=== PATIENT | female | born 1945 | race Caucasian/White ===

== ENCOUNTER → 2019-10-27 11:00 | Outpatient (BNVA) | payer MEDICARE, SELFPAY | PROVIDERS: Family Provider Family Medicine; Visit Provider Nurse Practitioner Family | DX: Z11.59 Encounter for screening for other viral diseases (principal); Z71.89 Other specified counseling | CPT/HCPCS: 87635 ==

== ENCOUNTER 2019-10-29 10:16 | Observation (INO) | payer MEDICARE, SELFPAY ==
[2019-10-29] VITALS (8 sets, daily range): BP systolic 131–155; BP diastolic 79–96; PULSE 65–82; RESP 16–20; TEMP 36.1–36.9; O2SAT 93–97; BMI 23.6
--- NOTE | 2019-10-29 10:44 | XRR_ITS ---
PROCEDURE INFORMATION: Exam: XR Chest, 1 View Exam date and time: 10/29/2019 11:25 AM Age: 74 years old Clinical indication: Left-sided chest pain; Additional info: Cp, lt sided x 1 week TECHNIQUE: Imaging protocol: XR of the chest Views: 1 view. COMPARISON: No relevant prior studies available. FINDINGS: Lungs: Hypoinflation and mild basilar airspace disease. Pleural space: No significant pleural effusion. Heart/Mediastinum: No cardiomegaly. Vasculature: Ectasia of the thoracic aorta. Bones/joints: Osteopenia and mild scoliosis. XR/XR chest 1V portable [id number] IMPRESSION: Hypoinflation and mild basilar airspace disease.
--- NOTE | 2019-10-29 10:47 | ECG_ITS ---
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 Measurements Intervals [place] Rate: 66 P: 35 VA: 152 QRS: -2 QRSD: 85 T: 45 QT: 387 QTc: 408 Interpretive Statements SINUS RHYTHM No previous ECG available for comparison Electronically Signed On 10-29-2019 21:13:45 CDT by Tyler Mccarty M.D. [email or web address] ([employer])[facility] biloxivip.[facility].Haofangtong/store/NU/[id number] f
--- NOTE | 2019-10-29 10:50 | W.ED.CHESTPA ---
HPI - Chest Pain General: Chief Complaint: Chest Pain Stated Complaint: CP Time Seen by Provider: 10/29/19 10:17 History of Present Illness: HPI narrative: Patient has episodic chest pain that feels a heavy weight sitting on her chest for the past week. She has minimal associated symptoms. Pain has not resolved and therefore patient was sent to the emergency department for evaluation by her PCP. MD complaint: chest pain, chest heaviness and chest discomfort Onset (ago): week(s) (1) Timing of current episode: episodic Prior episodes: No Onset: during rest and during exertion Pain location: substernal, left chest and posterior Pain radiation: neck, jaw/teeth, left shoulder and left scapula Severity: severe Quality: heaviness Relieving factors: nothing Exacerbating factors: nothing Review of Systems General: Reports: 10 or more systems reviewed and unremarkable except in HPI and below PFSH ED PFSH: Social History Smoking and tobacco status: never smoked Physical Exam Const: COMMON NORMALS: no acute distress, healthy appearing and well nourished GENERAL APPEARANCE: cooperative and well developed HENMT: COMMON NORMALS: normocephalic and atraumatic HEAD & SCALP: normal to inspection, normocephalic and atraumatic Eye: GENERAL EYE: appearance normal, both eyes and all related structures Neck/C-Spine: COMMON NORMALS: full ROM, no lymphadenopathy and no meningeal signs GENERAL: Yes normal visual inspection CERVICAL SPINE: Yes cervical ROM normal and Yes normal cervical lordosis Chest: COMMONS NORMALS: normal inspection of the chest and normal palpation of entire chest wall Resp: COMMON NORMALS: normal respiratory effort, clear to auscultation bilaterally and percussion normal AUSCULTATION: clear to auscultation bilaterally PERCUSSION: percussion normal Cardio: COMMON NORMALS: regular rate, regular rhythm, S1 normal heart sound present and S2 normal heart sound present JUGULAR VENOUS DISTENTION: no JVD PALPATION: normal PMI RATE: regular rate RHYTHM: regular rhythm HEART SOUNDS: S1 normal heart sound present and S2 normal heart sound present GI: COMMON NORMALS: Soft to palpation and No hepatosplenomegaly present INSPECTION: Yes normal to inspection PALPATION: Yes Soft to palpation and Yes No hepatosplenomegaly present PERCUSSION: normal to percussion : COMMON NORMALS: Yes no CVA tenderness BLADDER/KIDNEY EXAM: Yes no CVA tenderness Back/Pelvis: COMMON NORMALS: no CVA tenderness, thoracic and lumbar spine normal to inspection and thoraco-lumbar ROM normal Extremity: COMMON NORMALS: normal to inspection, full ROM and capillary refill normal Neuro: MENINGEAL SIGNS: Yes no meningeal signs Skin: COMMON NORMALS: no rashes or lesions noted, no wounds and turgor normal GENERAL SKIN EXAM: no rashes or lesions noted, elasticity normal and turgor normal LESIONS: no lesions RASHES: no rashes TRAUMA: no lacerations or abrasions HAIR: normal NAILS: normal Course Vital Signs: Vital signs: Vital Signs Temperature 96.9 F L 10/29/19 10:17 Pulse Rate 65 10/29/19 10:17 Respiratory Rate 16 10/29/19 10:17 Blood Pressure 155/96 10/29/19 10:17 Pulse Oximetry 97 10/29/19 10:17 MDM - Chest Pain Lab Data: Labs: Lab Results 10/29/19 10/29/19 10/29/19 Range/Units 10:56 10:56 10:56 WBC 4.0 (4.0-10.0) 10^3/ uL RBC 4.34 (4.1-5.3) 10^6/u L Hgb 12.9 (11.5-15.3) g/dL Hct 40.3 (37.0-47.0) % MCV 92.9 (81-99) fL MCH 29.7 (28.0-34.0) pg MCHC 32.0 (30.0-36.0) g/dL RDW 12.0 L (12.1-15.1) % Plt Count 215 (130-400) 10^3/c mm MPV 10.3 (7.4-10.4) fL Neut % (Auto) 50.6 % Lymph % (Auto) 32.6 % [place] % (Auto) 11.5 % Eos % (Auto) 4.0 % Baso % (Auto) 1.0 % Neut # (Auto) 2.0 (1.8-7.7) 10^3/u L Lymph # (Auto) 1.3 (0.8-4.8) 10^3/u L [place] # (Auto) 0.5 (0.2-0.9) 10^3/u L Eos # (Auto) 0.2 (0.0-0.8) 10^3/u L Baso # (Auto) 0.0 (0.0-0.1) 10^3/u L Nucleated RBC % (a uto) 0 % Nucleated RBCs # 0.0 /100WBC PT 12.30 (10.5-13.3) SECO NDS INR 0.89 (0.8-1.2) Sodium 139 (136-145) mmol/L Potassium 4.2 (3.5-5.1) mmol/L Chloride 101 (98-107) mmol/L Carbon Dioxide 25 (22-29) mmol/L Anion Gap 17.2 (5-19) BUN 14 (8-23) mg/dL Creatinine 0.7 (0.5-0.9) mg/dL Glucose 97 (65-115) mg/dL Calculated Osmolal ity 284 L (285-295) mOsm/k g Calcium 9.7 (8.5-10.5) mg/dL Total Bilirubin 0.3 (0.15-1.2) mg/dL AST 18 (0-32) U/L ALT 14 (0-33) U/L Alkaline Phosphata se 79 (35-105) IU/L Troponin T Baselin e (0-10) ng/L NT-Pro-B Natriuret Pep 38 (0-125) pg/mL Total Protein 6.8 (6.6-8.7) g/dL Albumin 4.4 (3.5-5.2) g/dL Globulin 2.4 (1.3-4.6) g/dL /25/20 Range/Units 10:56 WBC (4.0-10.0) 10^3/ uL RBC (4.1-5.3) 10^6/u L Hgb (11.5-15.3) g/dL Hct (37.0-47.0) % MCV (81-99) fL MCH (28.0-34.0) pg MCHC (30.0-36.0) g/dL RDW (12.1-15.1) % Plt Count (130-400) 10^3/c mm MPV (7.4-10.4) fL Neut % (Auto) % Lymph % (Auto) % [place] % (Auto) % Eos % (Auto) % Baso % (Auto) % Neut # (Auto) (1.8-7.7) 10^3/u L Lymph # (Auto) (0.8-4.8) 10^3/u L [place] # (Auto) (0.2-0.9) 10^3/u L Eos # (Auto) (0.0-0.8) 10^3/u L Baso # (Auto) (0.0-0.1) 10^3/u L Nucleated RBC % (a uto) % Nucleated RBCs # /100WBC PT (10.5-13.3) SECO NDS INR (0.8-1.2) Sodium (136-145) mmol/L Potassium (3.5-5.1) mmol/L Chloride (98-107) mmol/L Carbon Dioxide (22-29) mmol/L Anion Gap (5-19) BUN (8-23) mg/dL Creatinine (0.5-0.9) mg/dL Glucose (65-115) mg/dL Calculated Osmolal ity (285-295) mOsm/k g Calcium (8.5-10.5) mg/dL Total Bilirubin (0.15-1.2) mg/dL AST (0-32) U/L ALT (0-33) U/L Alkaline Phosphata se (35-105) IU/L Troponin T Baselin e 6 (0-10) ng/L NT-Pro-B Natriuret Pep (0-125) pg/mL Total Protein (6.6-8.7) g/dL Albumin (3.5-5.2) g/dL Globulin (1.3-4.6) g/dL Discharge Plan Discharge Patient Disposition: Admitted As Inpatient Clinical Impression: Chest pain Qualifiers: Chest pain type: unspecified Qualified Code(s): R07.9 - Chest pain, unspecified Condition: Stable Referrals: Ann Marie Cameron MD [Family Provider] - Coding Level of Care Code ED Ell Teacher for [facility] Fwd Exam Comprehensive
[2019-10-29 11:07] LABS: Eosinophils # 0.2 10^3/uL (0.0-0.8); Hematocrit 40.3 % (37.0-47.0); Hemoglobin 12.9 g/dL (11.5-15.3); Lymphocytes # 1.3 10^3/uL (0.8-4.8); Lymphocytes % 32.6 %; Mean Corpuscular Hemoglobin 29.7 pg (28.0-34.0); Mean Corpuscular Volume 92.9 fL (81-99); Mean Platelet Volume 10.3 fL (7.4-10.4); Monocytes # 0.5 10^3/uL (0.2-0.9); Monocytes % 11.5 %; Neutrophils % 50.6 %; Nucleated Red Blood Cells % 0 %; Platelet Count 215 10^3/cmm (130-400); Red Blood Count 4.34 10^6/uL (4.1-5.3)
[2019-10-29 11:24] LABS: INR 0.89 (0.8-1.2)
[2019-10-29 11:31] LABS: Troponin(5th) Baseline 6 ng/L (0-10)
[2019-10-29 11:50] LABS: Alanine Aminotransferase 14 U/L (0-33); Albumin Level 4.4 g/dL (3.5-5.2); Alkaline Phosphatase 79 IU/L (35-105); Anion Gap 17.2 (5-19); Aspartate Amino Transferase 18 U/L (0-32); Blood Urea Nitrogen 14 mg/dL (8-23); Calcium 9.7 mg/dL (8.5-10.5); Carbon Dioxide 25 mmol/L (22-29); Chloride 101 mmol/L (98-107); Globulin 2.4 g/dL (1.3-4.6); Glucose 97 mg/dL (65-115); NT Pro B Type Natriuretic Pept 38 pg/mL (0-125); Osmolality Calculated 284 mOsm/kg (285-295); Potassium 4.2 mmol/L (3.5-5.1); Sodium 139 mmol/L (136-145); Total Bilirubin 0.3 mg/dL (0.15-1.2); Total Protein 6.8 g/dL (6.6-8.7)
--- NOTE | 2019-10-29 12:47 | ECG_ITS ---
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 Measurements Intervals [place] Rate: 62 P: 34 VT: 156 QRS: 0 QRSD: 79 T: 49 QT: 400 QTc: 408 Interpretive Statements SINUS RHYTHM Compared to ECG 10/29/2019 10:33:24 No significant changes Electronically Signed On 10-29-2019 21:14:41 CDT by Tyler Mccarty M.D. [email or web address] [email or web address] [email or web address] natchezOurStagepremier health upper valley [facility] center.A[employer]ov[employer]/store/OM/[id number]
--- NOTE | 2019-10-29 12:50 | PM.HP ---
Providers/Chief Complaint Chief Complaint: CP History of Present Illness Cassy Rockwell is a 74 year old female that presented to the emergency department with complaints of chest discomfort. Patient reports this is varied quite a bit. She reports that 7 days ago, after helping somebody move she developed left back pain acutely, left shoulder and neck pain. She states this lasted only a short time and went away but since that time she has been having intermittent left shoulder discomfort, fatigue. She has been having some chest discomfort, and feeling as if her left breast is heavy. This is not always exertional. This is sometimes positional. It seems to wrap around i sometimes. No diaphoresis. No shortness of breath. No hemoptysis. She denies any fevers. She had a COVID test recently, without history of exposure, that was negative. She is very concerned about her intermittent chest discomfort and severe fatigue. She reports she has had a stress test before in 2016 which was negative. She has no history of heart disease. Her primary care provider recently saw her and she had normal labs, no evidence of urine infection on culture, and a negative troponin at that time. Review of Systems General: Reports: 10 or more systems reviewed and unremarkable except in HPI and below Const: Denies: fever(s) Eyes: Denies: change in vision ENMT: Denies: throat pain Card: Reports: chest pain Resp: Denies: dyspnea GI: Denies: abdominal pain : Denies: flank pain Musc: Reports: neck pain and extremity pain Skin/Breast: Denies: rash Neuro: Denies: numbness in extremities Psych: Denies: anxiety or depression Endo: Denies: polyuria [place]/Lymph: Denies: easy bruising All/Imm: Denies: urticaria Medications/Allergies Home Medications Medication Instructions Recorded Confirmed Last Taken Type levothyroxine 112 mcg PO DAILY 10/29/19 10/29/19 10/29/19 History meloxicam 15 mg PO DAILY 10/29/19 10/29/19 10/29/19 History paroxetine HCl 10 mg PO DAILY 10/29/19 10/29/19 10/29/19 History Allergies Allergy/AdvReac Type Severity Reaction Status Date / Time Sulfa (Sulfonamide Allergy ALGY-Hives Verified 10/29/19 10:26 Antibiotics) PFSH Acute PFSH: Medical History (Updated 06/25/20 @ 13:17 by Nael Cameron MD) Depression DJD (degenerative joint disease) Hypothyroidism Surgical History (Updated 10/29/19 @ 13:09 by Nael Cameron MD) History of cataract surgery Family History (Updated 10/29/19 @ 13:09 by Nael Cameron MD) Other CAD (coronary artery disease) Social History (Updated 10/29/19 @ 13:09 by Nael Cameron MD) Smoking and tobacco status: never smoked Alcohol intake: current Alcohol intake frequency: 0-2 Drinks per Day Substance/Drug Use: never Vitals/I&O/Wt Last Vital Signs Temp 96.9 F L 10/29/19 10:17 Pulse 65 10/29/19 10:17 Resp 16 10/29/19 10:17 BP 155/96 10/29/19 10:17 Pulse Ox 97 10/29/19 10:17 Weight last 48 hrs Weight 68.583 kg Physical Exam Narrative: EXAM NARRATIVE: General exam is a white female in no apparent distress HEENT: Pupils equally round reactive light. Oropharynx is clear. Neck is supple no lymphadenopathy or thyromegaly. I cannot reproduce her symptoms with neck movement. Cardiovascular regular rate and rhythm without murmur, no S3 or S4. Chest does not demonstrate clear reproducibility with palpation Lungs clear no wheezing or crackles Abdomen is soft with positive bowel sounds. No obvious organomegaly was deferred Extremities no show cyanosis clubbing or edema. Pulses intact skin no obvious dermatomal decreased sensation, no rash Neuro no obvious focal deficits Data : 10/29/19 10:56 10/29/19 10:56 Other data: Troponin was 6. Recent COVID test was negative. Liver function tests normal. TSH is ordered and pending. Chest x-ray reviewed by me negative without infiltrate. EKG demonstrated normal sinus rhythm, normal axis, no ischemic changes A&P Assessment and plan (1) Chest pain: Her chest discomfort is atypical. She does have a family history of heart disease but no history of tobacco, hyperlipidemia, hypertension(even though ER blood pressure is elevated). We will arrange for nuclear stress test, echocardiogram. I am concerned with her history that she may have some nerve compression in her cervical or thoracic spine. CT noncontrast ordered. I am not worried about abscess/infection. Status: Acute Qualifiers: Chest pain type: unspecified Qualified Code(s): R07.9 - Chest pain, unspecified (2) Fatigue: Routine lab normal. Check TSH, sedimentation rate and CRP. Status: Acute Additional A&P Information Hypothyroidism, continue home medication and await TSH DJD Full code Lovenox for DVT prophylaxis Attestations Medical Necessity Statement*: Will need less than 2 midnight stay for evaluation of chest discomfort. Time Spent in Patient Care: Greater than 35 minutes Coding Level of Care Code Acute Veneer Marker for Chg Fwd Diagnoses Chest pain R07.9 Chest pain type: unspecified Fatigue R53.83
--- NOTE | 2019-10-29 13:02 | USCV_ITS ---
Cassy Rockwell Age: 74 Gender: F : 1945 Exam Date: 10/29/2019 14:30 Ordering Phys: Nael Cameron MD Technologist: Edith Ledesma [place] [facility] [place]: DYSPNEA BP: 131 / 79 HR: 82 Rhythm: Sinus Technical Quality: Adequate MEASUREMENTS (Male / Female) Normal Values 2D ECHO LV Diastolic Diameter PLAX 4.0 cm 4.2 - 5.9 / 3.9 - 5.3 cm LV Systolic Diameter PLAX 3.1 cm LV Chamber Size 4.1 cm IVS Diastolic Thickness 1.2 cm 0.6 - 1.0 / 0.6 - 0.9 cm IVS Systolic Thickness 1.7 cm LVPW Diastolic Thickness 1.6 cm 0.6 - 1.0 / 0.6 - 0.9 cm LVPW Systolic Thickness 1.8 cm RV Chamber Size 3.1 cm LVOT Diameter 2.0 cm LV Ejection Fraction 2D Teich 44.2 % LV Ejection Fraction MOD 2C 52.0 % LV Ejection Fraction 2C AL 49.9 % LA Diameter 3.7 cm LA Width 3.4 cm LA Height 3.8 cm RA Width 3.3 cm RA Height 3.9 cm Aorta at Sinotubular Diameter 2.6 cm M-MODE LV Diastolic Diameter MM 4.9 cm 4.2 - 5.9 / 3.9 - 5.3 cm LV Systolic Diameter MM 3.5 cm LV Ejection Fraction MM Teich 54.6 % IVS Diastolic Thickness MM 0.8 cm 0.6 - 1.0 / 0.6 - 0.9 cm IVS Systolic Thickness MM 1.0 cm LVPW Diastolic Thickness MM 1.0 cm 0.6 - 1.0 / 0.6 - 0.9 cm LVPW Systolic Thickness MM 1.0 cm Aortic Annulus Diameter 3.1 cm LA Ao Ratio MM 1.2 MV E Point Septal Separation 0.7 cm DOPPLER AV Peak Velocity 118.0 cm/s LVOT Peak Velocity 90.0 cm/s AV Area Cont Eq vti 2.3 cm squared AV Area Cont Eq pk 2.3 cm squared MV Area PHT 4.6 cm squared Mitral E to A Ratio 0.9 MV E' Velocity 10.0 cm/s Mitral E to MV E' Ratio 6.2 Mitral E to LV E' Lateral Ratio 6.2 Mitral E to LV E' Septal Ratio 6.1 TR Peak Velocity 288.0 cm/s TR Peak Gradient 33.3 mmHg TV Peak E Velocity 84.0 cm/s Right Atrial Pressure 3.0 mmHg Pulmonary Artery Systolic Pressu 36.2 mmHg PV Peak Velocity 75.0 cm/s RV Acceleration Time 0.1 s RV Ejection Time 0.4 s RV AcT/ET 0.3 FINDINGS Left Ventricle Normal left ventricular cavity size. Normal left ventricular systolic function. No regional wall motion abnormalities. Left ventricular ejection fraction is estimated at 54 %. Grade I/IV diastolic dysfunction (abnormal relaxation filling pattern), normal to mildly elevated filling pressures. Right Ventricle The right ventricle is normal in size and function. Right Atrium The right atrium is normal in size. Left Atrium The left atrium is normal in size. Mitral Valve Mildly thickened mitral valve. No mitral valve stenosis. Mild mitral valve regurgitation. Aortic Valve Structurally normal aortic valve without significant sclerosis or stenosis. There is no aortic regurgitation. Tricuspid Valve Structurally normal tricuspid valve without significant stenosis or regurgitation. Pulmonary artery systolic pressure is normal. Pulmonic Valve Mild pulmonary valve regurgitation. Pericardium Normal pericardium without effusion. Aorta Normal ascending aorta dimension. CONCLUSIONS 1-Normal left ventricular cavity size. Normal left ventricular systolic function. No regional wall motion abnormalities. Left ventricular ejection fraction is estimated at 54 %. Grade I/IV diastolic dysfunction (abnormal relaxation filling pattern), normal to mildly elevated filling pressures. 2-Mildly thickened mitral valve. No mitral valve stenosis. Mild mitral valve regurgitation. 3-Structurally normal aortic valve without significant sclerosis or stenosis. There is no aortic regurgitation. 4-Structurally normal tricuspid valve without significant stenosis or regurgitation. Pulmonary artery systolic pressure is normal. 5-There is no pericardial effusion. 6-Right atrial pressure is around 5 mm of mercury. 7-There are no prior echocardiogram studies to compare. Tyler Mccarty MD (Electronically Signed) Final Date: 29 October 2019 21:12 S
--- NOTE | 2019-10-29 13:02 | CTR_ITS ---
PROCEDURE INFORMATION: Exam: CT Cervical Spine Without Contrast Exam date and time: 10/29/2019 1:23 PM Age: 74 years old Clinical indication: Patient HX: Came to er for chest pains; Additional info: Pain TECHNIQUE: Imaging protocol: Computed tomography images of the cervical spine without contrast. Radiation optimization: All CT scans at this facility use at least one of these dose optimization techniques: automated exposure control; mA and/or kV adjustment per patient size (includes targeted exams where dose is matched to clinical indication); or iterative reconstruction. COMPARISON: No relevant prior studies available. RADIATION DOSE METRICS: Total DLP (mGy-cm): 416.66 FINDINGS: Vertebrae: Diminished cervical lordosis. No acute bony injury or malalignment in the cervical spine. 1.7 cm intraosseous hemangioma in the C7 vertebral body. Poorly characterized 9 mm nodular lytic lesion in the T1 vertebral body. Discs/Spinal canal/Neural foramina: Multilevel degenerative change, of greatest severity at the C5-C6 and C6-C7 levels. Soft tissues: Unremarkable. Lungs: Interstitial prominence. CT/CT cervical spin wo con* [id number] IMPRESSION: 1. Multilevel degenerative change and diminished cervical lordosis. 2. Additional findings as described above. Radiation Dose CTDIVOL = (mGy): DLP = 416.66 (mGy-cm)
--- NOTE | 2019-10-29 13:02 | CTR_ITS ---
PROCEDURE INFORMATION: Exam: CT Thoracic Spine Without Contrast Exam date and time: 10/29/2019 1:23 PM Age: 74 years old Clinical indication: Patient HX: Came in for chest pains; Additional info: Pain TECHNIQUE: Imaging protocol: Computed tomography images of the thoracic spine without contrast. Radiation optimization: All CT scans at this facility use at least one of these dose optimization techniques: automated exposure control; mA and/or kV adjustment per patient size (includes targeted exams where dose is matched to clinical indication); or iterative reconstruction. COMPARISON: No relevant prior studies available. RADIATION DOSE METRICS: Total DLP (mGy-cm): 1382.56 FINDINGS: Vertebrae: Nonspecific 9 mm nodular lytic lesion in the T1 vertebral body. 11 mm intraosseous hemangioma in the T11 vertebral body. No acute bony injury or malalignment in the thoracic spine. Mild scoliosis. Discs/Spinal canal/Neural foramina: No acute findings. Soft tissues: Unremarkable appearance of the paraspinous soft tissues. Liver: 2.4 cm cyst in the medial hepatic dome. Gallbladder and bile ducts: Questionable cholelithiasis. Kidneys and ureters: Status post incompletely visualized 3.1 cm left renal cyst with peripheral calcification. Lungs: Bilateral interstitial/airspace disease. CT/CT thoracic spin wo con* [id number] IMPRESSION: 1. No acute bony injury or malalignment in the thoracic spine. 2. Additional findings as described above. Radiation Dose CTDIVOL = (mGy): DLP = 1382.56 (mGy-cm)
[2019-10-29 13:39] LABS: Troponin 5 2HR 7.34 ng/L (0-10); Troponin 5 2HR Delta 1.34 ABS# (0-10)
[2019-10-29 14:04] LABS: Thyroid Stimulating Hormone 1.04 uIU/mL (0.27-4.20)
[2019-10-29] MEDS: enoxaparin 40 mg/0.4 mL Syringe SUBCUT (15:15)
--- NOTE | 2019-10-29 16:47 | ECG_ITS ---
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 Measurements Intervals [place] Rate: 71 P: 57 AK: 145 QRS: -3 QRSD: 88 T: 65 QT: 403 QTc: 439 Interpretive Statements SINUS RHYTHM Compared to ECG 10/29/2019 12:59:23 No significant changes Electronically Signed On 10-29-2019 21:14:49 CDT by Tyler Mccarty M.D. https://[email or web address].[facility]-Cmemorial hospital at stone countyBillogrammercy health – the jewish hospitalDream home renovations/store/OM/[id number]/[id number]
[2019-10-29 17:27] LABS: Troponin 5 6HR Delta 0 ng/L (0-12)
[2019-10-29 17:59] LABS: C Reactive Protein 0.6 mg/L (0.0-4.9)
[2019-10-29 18:13] LABS: Erythrocyte Sedimentation Rate 9 mm/hr (0-15)
--- NOTE | 2019-10-29 19:30 | PC.NURSE ---
Pt resting in bed. Denies any pain unless she is moving. Eating icecream. No further needs at this time.
--- NOTE | 2019-10-29 20:33 | PC.NURSE ---
Offered patient a bath. Patient stated was going home in the morning. And was o.k.
[2019-10-30] VITALS (44 sets, daily range): BP systolic 113–146; BP diastolic 67–91; PULSE 58–94; RESP 18–22; TEMP 36.6; O2SAT 92–97
[2019-10-30 04:59] LABS: Basophils % 0.5 %; Eosinophils # 0.1 10^3/uL (0.0-0.8); Eosinophils % 3.6 %; Hematocrit 41.4 % (37.0-47.0); Hemoglobin 12.9 g/dL (11.5-15.3); Lymphocytes # 1.6 10^3/uL (0.8-4.8); Lymphocytes % 41.7 %; Mean Corpuscular HGB Conc 31.2 g/dL (30.0-36.0); Mean Corpuscular Hemoglobin 29.7 pg (28.0-34.0); Mean Corpuscular Volume 95.4 fL (81-99); Mean Platelet Volume 10.3 fL (7.4-10.4); Monocytes # 0.4 10^3/uL (0.2-0.9); Monocytes % 11.1 %; Neutrophils # 1.7 10^3/uL (1.8-7.7); Neutrophils % 42.8 %; Nucleated Red Blood Cells % 0 %; Platelet Count 203 10^3/cmm (130-400); Red Blood Count 4.34 10^6/uL (4.1-5.3); Red Cell Distribution Width 12.1 % (12.1-15.1); White Blood Count 3.9 10^3/uL (4.0-10.0)
[2019-10-30 05:42] LABS: Blood Urea Nitrogen 14 mg/dL (8-23); Calcium 9.5 mg/dL (8.5-10.5); Carbon Dioxide 25 mmol/L (22-29); Chloride 102 mmol/L (98-107); Glucose 101 mg/dL (65-115); Osmolality Calculated 282 mOsm/kg (285-295); Sodium 138 mmol/L (136-145)
--- NOTE | 2019-10-30 05:56 | PC.NURSE ---
No complaints of chest pain throughout this shift. Stress test ordered for today.
--- NOTE | 2019-10-30 06:00 | ECG_ITS ---
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 Interpretive Statements NAME OF STUDY: LEXISCAN SESTAMIBI STRESS TEST INDICATION: Chest Pain LEXISCAN STRESS TEST ORDERING PHYSICIAN: Unknown CLINICAL INFORMATION: Chest pain INTERPRETATION: 1. The patient was brought to the laboratory where Lexiscan was infused over 20 seconds. The resting blood pressure was 134/79. Maximum blood pressure was 139/81. The resting heart rate was 62 beats per minute. The maximum heart rate is 89 beats per minute. 2. The baseline electrocardiogram reveals sinus rhythm with significant baseline artifact and nonspecific ST wave changes 3. With Lexiscan infusion, there were no ST segment changes to suggest ischemia. 4. The patient experienced no symptoms or arrhythmias during the examination. CONCLUSION: 1. Unremarkable Lexiscan infusion. 2. Nuclear imaging to follow. Electronically Signed On 10-30-2019 14:54:50 CDT by Adam Hernandez M.D. [email or web address]Skicka Tårtaselect medical specialty hospital [facility].PATHSENSORS/store/OM/[id number]/[id number]
--- NOTE | 2019-10-30 07:25 | PC.NURSE ---
Patient transported to nuclear medicine in a wheelchair.
--- NOTE | 2019-10-30 08:11 | SUR.PREOP ---
Patient reports no pain or discomfort prior to the start of the procedure.
[2019-10-30] MEDS: regadenoson 0.4 Mg/5 ml Syringe IVP (08:12)
[2019-10-30] MEDS: PARoxetine 20 mg Tablet 10 MG PO (09:36)
[2019-10-30] MEDS: levothyroxine 112 mcg Tablet PO (09:36)
[2019-10-30] MEDS: meloxicam 7.5 mg tablet 15 MG PO (09:36)
--- NOTE | 2019-10-30 11:05 | PC.CHAP ---
Pastoral Care Encounter/Spiritual Assessment Type of Contact [] Declined television technician visit [] Patient/Family/Request visit [] Outpatient visit [] Follow-up visit [] Physician referral [] Code/Alert [x] Routine visit [] Staff referral [] Actively dying [] Patient sleeping [] Family support [] [] Out of room [] Palliative care [] [] Receiving care in room [] Pre-surgical visit [] Trauma [] Long length of stay [] ICU visit [] Other: Relational/Emotional Strength [] Patient feels connected with others/family/visitors/staff [] Distress [] Loneliness/isolation [] Abandonment Spirituality of Patient [] Person of Mady [] Attends Restoration of their Mady [] Believes in Prayer [] Reads Bible or Denominational materials [] There are Spiritual issues to be addressed Ballistic Technician Interventions [x] Prayer [x] Active listening [x] Non-anxious presence [x] Spiritual/emotional support [] Crisis/trauma care [] Spiritual counseling [] Bereavement support [] Provided bereavement packet [] Provided Bible/devotional materials [] Provided toy/stuffed animal, coloring book to patient or family member [] Provided Communion [] Anointing/[place] [] Salvation [x] Completed spiritual assessment [] Other: Impact on Illness or Injury [] Angry [] Fearful [] Anxious [] Often cries [] Exhaustion [] Unable to work [] Unable to attend mormon [] Unable to walk/stand [] Unable to read [] Unable to drive [] Unable to eat/drink [] Unable to sleep [] Unable to be with family [] Patient intubated [] Other: Summary patient feeling stronger Time spent with patient 10 min
--- NOTE | 2019-10-30 12:38 | P.DS_ITS ---
Discharge Providers Date of Admission: 10/29/19 12:44 Date of Discharge: October 30, 2019 Attending Provider at Admission: Nael Cameron MD Attending Provider at Discharge: Nael Cameron MD Primary Care Provider: Ann Marie Cameron MD Diagnoses at Discharge Discharge Diagnosis (1) Chest pain: Status: Acute Problem details: Atypical. Appears musculoskeletal. Nuclear stress test, echocardiogram negative. Troponins negative. Qualifiers: Chest pain type: unspecified Qualified Code(s): R07.9 - Chest pain, unspecified (2) Fatigue: Status: Acute Reason for Visit Reason for Visit: CP Hospital Course Hospital Course: Cassy is a 74-year-old white female who is been to the hospital with chest discomfort. This was atypical in nature and suggested musculoskeletal. Troponins were all negative. An EKG demonstrated no ischemia. Telemetry overnight was not concerning. Echocardiogram was normal. Nuclear stress test normal. She still had some discomfort, with position changes on discharge. She was instructed to take Tylenol as needed and follow-up with her primary care provider. TSH was also checked secondary to fatigue, and was normal. Sedimentation CRP was also normal. Physical Exam Narrative: EXAM NARRATIVE: General exam no apparent distress Cardiovascular regular in rhythm without murmur Lungs clear Abdomen is soft, positive bowel sounds Extremities no cyanosis clubbing or edema Discharge Data Data Completed and Pending: Completed Studies During Hospitalization Category Date Time Status CT cervical spin wo con* [id number] Urge nt Cat Scan 10/29/19 13:[address] thoracic spin wo con* [id number] Urge nt Cat Scan 10/29/19 13:02 Completed Sestamibi Stress Test Request Routi ne Exams 10/30/19 06:00 Draft XR chest 1V gonzalez ble [id number] Stat Exams 10/29/19 10:44 Completed NM sonali perf SPECT r/s* [id number] Routin e Nuc Med 10/30/19 13:02 Completed CV echo complete* [id number] Routine Ultrasound 10/29/19 13:02 Completed Pending at discharge Category Date Time Status Sestamibi Stress Test Request Routi ne Exams 10/29/19 13:02 Stop Req Labs from last 24 hours 10/30/19 10/30/19 10/29/19 04:50 04:50 16:57 WBC 3.9 L RBC 4.34 Hgb 12.9 Hct 41.4 MCV 95.4 MCH 29.7 MCHC 31.2 RDW 12.1 Plt Count 203 MPV 10.3 Neut % (Auto) 42.8 Lymph % (Auto) 41.7 [place] % (Auto) 11.1 Eos % (Auto) 3.6 Baso % (Auto) 0.5 Neut # (Auto) 1.7 L Lymph # (Auto) 1.6 [place] # (Auto) 0.4 Eos # (Auto) 0.1 Baso # (Auto) 0.0 Nucleated RBC % (a uto) 0 Nucleated RBCs # 0.0 ESR Sodium 138 Potassium 4.0 Chloride 102 Carbon Dioxide 25 Anion Gap 15.0 BUN 14 Creatinine 0.8 Glucose 101 Calculated Osmolal ity 282 L Calcium 9.5 Troponin I 6 Hour Troponin I Hi Sens Del Troponin T 120 Min [place] Delta Troponin T C-Reactive Protein 0.6 TSH 10/29/19 10/29/19 10/29/19 16:57 16:57 13:06 WBC RBC Hgb Hct MCV MCH MCHC RDW Plt Count MPV Neut % (Auto) Lymph % (Auto) [place] % (Auto) Eos % (Auto) Baso % (Auto) Neut # (Auto) Lymph # (Auto) [place] # (Auto) Eos # (Auto) Baso # (Auto) Nucleated RBC % (a uto) Nucleated RBCs # ESR 9 Sodium Potassium Chloride Carbon Dioxide Anion Gap BUN Creatinine Glucose Calculated Osmolal ity Calcium Troponin I 6 Hour 6.00 Troponin I Hi Sens Del 0 Troponin T 120 Min [place] 7.34 Delta Troponin T 1.34 C-Reactive Protein TSH 10/29/19 10:56 WBC RBC Hgb Hct MCV MCH MCHC RDW Plt Count MPV Neut % (Auto) Lymph % (Auto) [place] % (Auto) Eos % (Auto) Baso % (Auto) Neut # (Auto) Lymph # (Auto) [place] # (Auto) Eos # (Auto) Baso # (Auto) Nucleated RBC % (a uto) Nucleated RBCs # ESR Sodium Potassium Chloride Carbon Dioxide Anion Gap BUN Creatinine Glucose Calculated Osmolal ity Calcium Troponin I 6 Hour Troponin I Hi Sens Del Troponin T 120 Min [place] Delta Troponin T C-Reactive Protein TSH 1.04 Vitals: Last Vital Signs Temp 97.9 F 10/30/19 04:00 Pulse 72 10/30/19 10:32 Resp 22 H 10/30/19 04:00 BP 130/72 10/30/19 08:20 Pulse Ox 96 10/30/19 10:32 Discharge Plan Discharge Patient Disposition: Home, Self-Care Condition: Stable Prescriptions: Continued paroxetine HCl 10 mg Tablet 10 mg PO DAILY RF: 0 meloxicam 15 mg Tablet 15 mg PO DAILY RF: 0 levothyroxine 112 mcg Tablet 112 mcg PO DAILY RF: 0 Referrals: Ann Marie Cameron MD [Primary Care Provider] - 1 week Discharge Diet: Regular Discharge Activity: Increase activity as tolerated Activity Restrictions/Additional Instructions: Arrange for follow-up with your primary care provider in approximately 1 week. Use Tylenol as needed. Discharge Attestations Time Spent in Discharge Care*: greater than 30 min Quality Metrics Clinical Quality Measures During this hospital stay, did patient experience: None Coding Level of Care Code Acute Endocrinology Nurse for Janett Barnes Diagnoses Chest pain R07.9 Chest pain type: unspecified Fatigue R53.83
--- NOTE | 2019-10-30 13:02 | NMCV_ITS ---
NM sonali perf SPECT r/s* [id number] Cassy Rockwell Age: 74 Gender: F : 1945 Exam Date: 10/30/2019 07:15 Ordering Phys: Nael Cameron MD Technologist: SARAH Smart Exam Location: [facility] Indications: Chest pain STRESS TEST [facility] for [facility] IMAGE PROTOCOL Rest/Stress 1 Lexiscan Day Radiopharmaceutical Dose (mCi) Administration Site Administered by Rest: Tc-99m 11.0 IV SARAH Dasilva Sestamibi Stress:Tc-99m 32.5 IV SARAH Smart Sestamiplacido Rest: 30-Oct-2019 60 Discovery 630 Stress: 30-Oct-2019 45 Discovery 630 0.4mg Lexiscan. Images obtained in supine and prone position. SPECT RESULTS Technical Quality: Good Raw Data Analysis: Normal Image Corrections: No attenuation or motion correction applied Summed Stress Score: 0 Summed Rest Score: 0 Summed Difference Score: 0 PERFUSION FINDINGS SPECT images demonstrate homogeneous tracer distribution throughout the myocardium. FUNCTIONAL RESULTS (calculated via Gated SPECT) Stress Image LV EF (%): 59 Stress EDV (mL):71 TID: 0.95 Stress ESV (mL):29 FUNCTIONAL FINDINGS: The left ventricle is normal in size. Transient Ischemia Dilatation of 0.95. There is normal left ventricular systolic function. The left ventricular ejection fraction is normal with a value of 59%. There is normal left ventricular wall thickening. Normal end-diastolic and end-systolic volumes. IMPRESSIONS 1. Myocardial perfusion imaging is normal. 2. Overall left ventricular systolic function is normal without regional wall motion abnormalities. 3. The left ventricular ejection fraction is normal with a value of 59%. 4. This study suggests a low likelihood of angiographically significant coronary artery disease. Mckenzie Johnson MD (Electronically Signed) Final Date: 30 October 2019 12:31 S
== END 2019-10-30 13:39 | disposition home or self-care (01) ==
LOC: ER 12:52 → CSU 13:21
PROVIDERS: Family Medicine; Admitting Provider Internal Medicine; Emergency Provider Family Medicine; PCP Family Medicine; Visit Provider Internal Medicine
DX: R07.89 Other chest pain (principal); R53.83 Other fatigue; E03.9 Hypothyroidism, unspecified; M19.90 Unspecified osteoarthritis, unspecified site; F32.9 Major depressive disorder, single episode, unspecified; Z82.49 Family history of ischemic heart disease and other diseases of the circulatory system
CPT/HCPCS: 12345; 36415; 71045; 72125; 72128; 78452; 80048; 80053; 83880; 84443; 84484; 85025; 85610; 85651; 86140; 93005; 93017; 93306; 96372; 99282; 99285; A9500; G0378; J1650; J2785

== ENCOUNTER 2019-11-16 09:23 | Outpatient (CLI) | payer MEDICARE, SELFPAY ==
--- NOTE | 2019-11-16 09:31 | MR_ITS ---
WS: [id number] MRI THORACIC SPINE WITH CONTRAST TECHNIQUE: Sagittal T1, T2 and STIR imaging. Axial T2 imaging. Post gadolinium imaging was obtained. CLINICAL INFORMATION: DISORDER OF BONE UNSPEC;LYTIC LESION OF BONE ON XRAY COMPARISON: CT thoracic October 29, 2019 FINDINGS: T1 vertebral body lesion previously described on the CT represents incidental hemangioma. Incidental hemangioma T11 vertebral body. Partially visualized lesion in the L2 vertebral body eccentric to the left with enhancement. This may represent an atypical hemangioma and only partially evaluated and indeterminant. Recommend further e valuation with MRI lumbar spine. Spinal canal is patent. Cord signal is normal. Normal paravertebral soft tissues. Mild spondylitic ch anges cervical spine. Hepatic cysts. Renal cysts. MR/MR thoracic spine wo/w [id number] IMPRESSION: 1. The previously described T1 lesion represents an incidental hemangioma. 2. Incidental hemangioma T11 vertebral body. 3. Partially visualized enhancing lesion in the L2 vertebral body may represen t an atypical hemangioma but incompletely evaluated. Recommend MRI lumbar spine without and with gadolinium enhancement for further evaluation.
== END 2019-11-16 09:24 | disposition home or self-care (01) ==
LOC: RADSHAW 09:23
PROVIDERS: PCP Family Medicine; Visit Provider Family Medicine
DX: M89.9 Disorder of bone, unspecified (principal); D18.09 Hemangioma of other sites
CPT/HCPCS: 72157; A9579

== ENCOUNTER 2019-11-24 10:40 | Outpatient (CLI) | payer MEDICARE, SELFPAY ==
--- NOTE | 2019-11-24 10:49 | MR_ITS ---
WS: [id number] MRI LUMBAR SPINE WITH CONTRAST TECHNIQUE: Sagittal T1, T2 and STIR imaging. Axial T1 and T2 imaging. Post gadolinium imaging was obt ained. CLINICAL INFORMATION: LYSTIC LESION COMPARISON: None. FINDINGS: Mild lumbar curve. No acute compression. Low signal T1 and T2 lesion with increased STIR signal and e nhancement involving the left posterior L2 vertebral body. This measures approximately 1.7 x 1.6 cm. No cortical destruction. Small amount of enhancement extending into the pedicle. This lesion is nonsp ecific but may represent atypical hemangioma considering the other numerous hemangiomas in the cervic al and thoracic spine. Metastatic disease is difficult to entirely exclude. Incidental hemangioma T11 vertebral body. L1-L2: Normal. L2-L3: Mild annular bulging. Moderate facet arthropathy. Small facet effusions. Spinal canal and fora men are patent. L3-L4: Mild disc bulging with narrowing of the subarticular recess bilaterally left greater than righ t. Mild left foraminal narrowing. Right foramen is patent. Moderate facet arthropathy. Mild central c anal stenosis. L4-L5: Mild disc bulging with impingement on the right subarticular recess and traversing right L5 ne rve root. Moderate right and no significant left foraminal narrowing. Moderate facet arthropathy. Imp ingement traversing L5 nerve root. L5-S1: Tiny central disc protrusion. Spinal canal and foramen are patent. Moderate facet arthropathy. Partially visualized left renal cyst measuring 3.6 cm. MR/MR lumbar spine wo/w con [id number] IMPRESSION: 1. Mild lumbar curve. No acute compression. 2. Enhancing lesion involving the L2 vertebral body is nonspecific but may rep resent atypical hemangioma considering the multiple thoracic hemangiomas. Metas tatic lesion difficult to entirely exclude. Recommend Noncontrast CT lumbar spi ne for further characterization. 3. Mild central canal stenosis L3-L4 and L4-L5 described above.
== END 2019-11-24 10:41 | disposition home or self-care (01) ==
LOC: RADWPI 10:45
PROVIDERS: PCP Family Medicine; Visit Provider Family Medicine
DX: M89.9 Disorder of bone, unspecified (principal); M48.061 Spinal stenosis, lumbar region without neurogenic claudication
CPT/HCPCS: 72158; A9579

== ENCOUNTER 2019-12-16 14:45 | Outpatient (CLI) | payer MEDICARE, SELFPAY ==
--- NOTE | 2019-12-16 14:50 | CT_ITS ---
WS: [id number] CT of the lumbar spine, additional two-dimensional coronal and sagittal imaging was obtained. 12/16/19 Clinical Data: BONE LESION Comparison: MR lumbar spine, 11/24/2019 DLP: 1833.[address] scans at [facility] use at least one of these dose optimization techniques: automat ed exposure control; mA and/or kV adjustment per patient size (includes targeted exams where dose is matched to clinical indication); or iterative reconstruction. Findings: No abnormalities of the L2 vertebral body can be seen. No evidence of metastatic disease or destruction is present. No lumbar vertebral body hemangioma is noted. There is degenerative disc dis ease at L3-L4 and L4-L5. There is a levoscoliosis. Degenerative spurring posteriorly and anteriorly a t L3-L4 and L4-L5 is seen. No compression fractures are present. T12-L1: No canal stenosis, disc bulge or foraminal narrowing is seen. L1-L2: No canal stenosis, disc bulge or foraminal narrowing is seen. L2-L3: No canal stenosis, disc bulge or foraminal narrowing is seen. L3-L4: There is a central bulging disc causing central canal stenosis and foraminal narrowing. L4-L5: There is a central bulging disc causing canal and foraminal stenosis. L5-S1: There is a small central bulging disc causing canal and foraminal stenosis. CT/CT lumbar spine wo con* [id number] Impression: 1. Negative L2 vertebral body with no evidence of metastatic disease, hemangiom a or compression fracture. 2. Degenerative disc changes at L3-L4 and L4-L5. 3. Bulging discs with canal and foraminal stenosis at L3-L4, L4-L5. 4. Bulging disc at L5-S1. 5. 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 6. Levoscoliosis at L3-L5.
== END 2019-12-16 14:46 | disposition home or self-care (01) ==
LOC: RADWPI 14:50
PROVIDERS: PCP Family Medicine; Visit Provider Family Medicine
DX: M89.9 Disorder of bone, unspecified (principal); M51.26 Other intervertebral disc displacement, lumbar region; M48.061 Spinal stenosis, lumbar region without neurogenic claudication; M47.816 Spondylosis without myelopathy or radiculopathy, lumbar region; M51.27 Other intervertebral disc displacement, lumbosacral region
CPT/HCPCS: 72131

== ENCOUNTER 2020-03-08 12:49 | Outpatient (CLI) | payer MEDICARE, SELFPAY ==
--- NOTE | 2020-03-08 13:03 | MM_ITS ---
WS: [id number] BILATERAL DIGITAL SCREENING MAMMOGRAPHY WITH CAD CLINICAL INFORMATION: SCREENING HISTORY: Screening mammogram. No current complaints. COMPARISON: TECHNIQUE: Bilateral CC and MLO views. FINDINGS: Scattered fibroglandular densities bilaterally. Stable dense asymmetric breast tissue upper outer lef t breast. No suspicious focal mass, asymmetry, calcifications, or architectural distortion. No eviden ce of malignancy. A few punctate calcifications. Vascular calcifications. MM/[place] [id number] IMPRESSION: BI-RADS: 2-Benign FOLLOW UP: 1 Year Follow-up Recommend return to annual screening mammography.
--- NOTE | 2020-03-08 13:31 | XR_ITS ---
WS: [id number] Bone mineral density performed on a [employer] IDXA, 03/08/2020. Clinical data: ASYMTOMATIC MENOPAUSAL STATE Comparison study: DEXA scan, 11/12/2017. Findings: The first 4 lumbar vertebral bodies demonstrated the bone mineral density of 1.199 g/cm2 for a young adult T score of 0.2. Measurement of the left hip reveals a bone mineral density of 0.888 g/cm2 with a young adult T score of -0.9. Measurement of the right hip reveals the bone mineral density of 0.910 g/cm2 for young adult T score of -0.8. XR/XR DEXA axial skeleton* [id number] Impression: 1.There is normal bone mineral density of the lumbar spine with a mild decrease in bone mineral density compared to the prior study. 2. There is normal bone mineral density in both hips with a slight decrease in bone mineral density compared to the prior study.
== END 2020-03-08 12:50 | disposition home or self-care (01) ==
LOC: RADSHAW 12:54
PROVIDERS: PCP Family Medicine; Visit Provider Family Medicine
DX: Z12.31 Encounter for screening mammogram for malignant neoplasm of breast (principal); Z78.0 Asymptomatic menopausal state
CPT/HCPCS: 77067; 77080

== ENCOUNTER 2021-03-16 13:23 | Outpatient (CLI) | payer MEDICARE, SELFPAY ==
--- NOTE | 2021-03-16 13:30 | XR_ITS ---
WS: [id number] Right knee, 3 views, 03/16/2021 Clinical Data: PAIN IN R KNEE/LEG Comparison: None. Findings: No fractures or dislocations are seen. The joint spaces are normal. The patella is intact. The soft t issues are unremarkable. XR/XR knee RT 3V* [id number] Impression: Negative right knee. Kellgren-Otis Classification: grade 0 (none): definite absence of x-ray gilson nges of osteoarthritis
--- NOTE | 2021-03-16 13:30 | USCV_ITS ---
Cassy Rockwell Age: 76 Gender: F : 1945 Exam Date: 03/16/2021 13:40 Ordering Phys: Ann Marie Cameron MD Technologist: PIERCE [place] [facility] [place]: RIGHT LEG PAIN HISTORY: Lower extremity pain. PROCEDURES: Venous duplex imaging was performed in only the right lower extremity. The following venous structures were evaluated: common femoral vein, profunda vein, proximal portion of the greater saphenous vein, superficial femoral vein, and the popliteal vein. In addition, the posterior tibial and peroneal trunk were evaluated. FINDINGS: Normal 2-D Doppler and augmentation and compressibility throughout the lower extremity venous structures. Additional imaging through the proximal calf veins also reveals no thrombus. Limited evaluation of the greater saphenous vein is patent with no thrombus. CONCLUSIONS No DVT right lower extremity. Dr. Corina Hillman DO (Electronically Signed) Final Date: 16 March 2021 14:06 S
== END 2021-03-16 13:24 | disposition home or self-care (01) ==
LOC: RAD 13:26
PROVIDERS: PCP Family Medicine; Visit Provider Family Medicine
DX: M25.561 Pain in right knee (principal); M79.604 Pain in right leg
CPT/HCPCS: 73562; 93971

== ENCOUNTER 2021-04-21 10:27 | Outpatient (CLI) | payer MEDICARE, SELFPAY ==
--- NOTE | 2021-04-21 11:00 | MR_ITS ---
WS: [id number] MRI RIGHT KNEE HISTORY: PAIN IN RIGHT KNEE COMPARISON: 03/16/2021 Anterior cruciate ligament: Intact. Posterior cruciate ligament: Intact. Medial collateral ligament: Small amount of fluid adjacent to the MCL. No MCL tear. Posterior lateral corner structures: Intact. Medial menisci: Horizontal tear in the posterior horn extends to the inferior articular surface. Ther e is additional intrasubstance degeneration at the meniscal root. Anterior horn is normal. Lateral meniscus: Intact. Normal signal, size and shape. Extensor mechanism: Distal quadriceps tendon and patellar tendons are intact. Fluid and soft tissue: Very small suprapatellar joint effusion. No well-formed Pacheco's cyst but there is significant soft tissue edema noted in the medial head of the gastrocnemius. This may be a ruptur ed Bakers cyst. There is fluid that extends along the posterior knee. Osseous and articular structures: Patellofemoral compartment: Mild narrowing of the patellofemoral compartment. Most significant narrow ing is along the lateral joint space with loss of cartilage and a small amount of subchondral edema. There is bone upon bone within the lateral most portion of the patellofemoral joint space. Diffuse mi ld chondromalacia, greatest involving the lateral facet. Medial compartment: Moderate narrowing of the medial compartment with loss of cartilage and bone upon bone. Lateral compartment: Mild narrowing of the lateral compartment. There is very mild fissuring of the c artilage. There is increased T2 signal consistent with edema involving the nonweightbearing surface of the late ral anterior femoral condyle. This focal area of edema with loss of the normal cortex begins adjacent to the patellofemoral compartment and extends inferiorly and medially. There is an area of marrow si gnal abnormality extending over a width of 3.2 cm and in the superior inferior diameter of 3.0 cm. Th ere is loss of the normal cortex with osteochondral lesions and edema. MR/MR knee RT wo con* [id number] IMPRESSION: 1. Focal area of marrow edema and osteochondral lesions involving the anterola teral femoral condyle along the nonweightbearing surface. This area of abnormal ity begins at the lateral patellofemoral articulation and extends inferiorly to involve an area of 3.2 x 3.0 cm. 2. Horizontal tear posterior horn medial meniscus. 3. Increased soft tissue edema along the posterior knee. Cannot exclude ruptur ed Pacheco's cyst as the majority of the edema appears centered near the medial h ead of the gastrocnemius. 4. Moderate narrowing of the medial compartment with loss of bone and cartilag e. 5. Mild MCL sprain.
== END 2021-04-21 10:28 | disposition home or self-care (01) ==
LOC: RADSHAW 10:29
PROVIDERS: PCP Family Medicine; Visit Provider Family Medicine
DX: S83.411A Sprain of medial collateral ligament of right knee, initial encounter (principal); S83.241A Other tear of medial meniscus, current injury, right knee, initial encounter; X58.XXXA Exposure to other specified factors, initial encounter; R60.0 Localized edema
CPT/HCPCS: 73721

== ENCOUNTER → 2021-04-26 08:01 | Outpatient (BNVA) | payer MEDICARE, SELFPAY | PROVIDERS: PCP Family Medicine; Referring Provider Family Medicine; Visit Provider Specialist | DX: M25.561 Pain in right knee (principal); M17.11 Unilateral primary osteoarthritis, right knee | CPT/HCPCS: 73560; 73565; 80053; 85651; 86140; 86160; 86162; 86200; 86235; 86255; 86376; 86431 ==

== ENCOUNTER 2021-05-16 09:23 | Outpatient (CLI) | payer MEDICARE, SELFPAY ==
[2021-05-16 09:30] VITALS: BP 116/77; PULSE 86; RESP 18; TEMP 36.8; O2SAT 97; BMI 23.1
[2021-05-16 10:25] VITALS: BP 120/77; PULSE 74; RESP 18; TEMP 36.7; O2SAT 94
[2021-05-16 11:25] VITALS: BP 120/78; PULSE 69; RESP 17; TEMP 36.7; O2SAT 99
== END 2021-05-16 09:24 | disposition home or self-care (01) ==
LOC: OPS 09:27
PROVIDERS: PCP Family Medicine; Visit Provider Nurse Practitioner Family
DX: U07.1 COVID-19 (principal)
CPT/HCPCS: 96365

== ENCOUNTER → 2021-05-22 12:54 | Outpatient (BNVA) | payer MEDICARE, SELFPAY | PROVIDERS: PCP Family Medicine; Visit Provider Internal Medicine | DX: R76.8 Other specified abnormal immunological findings in serum (principal); M25.50 Pain in unspecified joint | CPT/HCPCS: 99204 ==

== ENCOUNTER → 2021-07-20 11:24 | Outpatient (BNVA) | payer MEDICARE, SELFPAY | PROVIDERS: PCP Family Medicine; Visit Provider Internal Medicine | DX: M25.50 Pain in unspecified joint (principal); R76.8 Other specified abnormal immunological findings in serum; Z79.899 Other long term (current) drug therapy | CPT/HCPCS: 80053; 85025; 85651; 86140 ==

== ENCOUNTER → 2021-07-25 14:09 | Outpatient (BNVA) | payer MEDICARE, SELFPAY | PROVIDERS: PCP Family Medicine; Visit Provider Internal Medicine | DX: M25.50 Pain in unspecified joint (principal); R76.8 Other specified abnormal immunological findings in serum; R51.9 Headache, unspecified; R42 Dizziness and giddiness | CPT/HCPCS: 99214 ==

== ENCOUNTER 2021-08-25 09:21 | Outpatient (CLI) | payer MEDICARE, SELFPAY ==
--- NOTE | 2021-08-25 10:50 | XR_ITS ---
WS: [id number] Exam: XR cervical spine 3V* [id number] Date/Time of Exam: 08/25/2021 10:53 AM Reason For Exam: GENERALIZED WEAKNESS/HEADACHE Comparison 12/26/2010. There is degenerative anterolisthesis of C7 on T1 with about 7 mm forward movement of C7. Slight dege nerative anterolisthesis of C3 on C4. Degenerative disc changes and spondylosis from C4 to C7. Facet arthropathy at all levels. Paraspinal soft tissues appear normal. The odontoid is intact. Cystic tanner ges noted in the left mandible. XR/XR cervical spine 3V* [id number] IMPRESSION: 1. Degenerative anterolisthesis of C7 on T1 with about 7 mm forward movement of C7. Minimal degenerative anterolisthesis of C3 on C4. 2. Degenerative disc changes and spondylosis from C4 to C7. Marked facet DJD at all levels. 3. No acute fracture or dislocation.
--- NOTE | 2021-08-25 10:50 | XR_ITS ---
WS: [id number] Exam: XR chest 2V* [id number] Date/Time of Exam: 08/25/2021 10:53 AM Reason For Exam: GENERALIZED WEAKNESS/COUGH Comparison 10/29/2019. The lungs are fully expanded and clear. Cardiomediastinal structures are unremarkable. A small heart monitor superimposes the left hilar region. No pleural effusions. The bony thorax is intact. Dextros coliosis of the upper lumbar spine. XR/XR chest 2V* [id number] IMPRESSION: 1. No acute cardiopulmonary finding.
== END 2021-08-25 09:22 | disposition home or self-care (01) ==
LOC: RAD 09:26
PROVIDERS: PCP Family Medicine; Visit Provider Family Medicine
DX: R53.1 Weakness (principal); R05.9 Cough, unspecified; R51.9 Headache, unspecified; M47.812 Spondylosis without myelopathy or radiculopathy, cervical region
CPT/HCPCS: 71046; 72040

== ENCOUNTER 2021-09-28 16:21 | Outpatient (CLI) | payer MEDICARE, SELFPAY ==
--- NOTE | 2021-09-28 16:25 | MR_ITS ---
WS: [id number] MRI CERVICAL SPINE NONCONTRAST HISTORY: Anterolisthesis. Dizziness and neck pain. COMPARISON: None available. Technique: Multiplanar, multisequence noncontrast imaging of the cervical spine. Straightening and slight reversal normal cervical lordosis centered at C4-5. Advanced degenerative di sc disease at C4-5, C5-6 and C6-7. Slight anterior wedging of C6. Hemangioma in C7. Anterolisthesis previously described at C7 is not as apparent by MRI. Signal within the cervical cord is normal. Visualized posterior fossa is unremarkable. Craniocervical junction, C1 and C2 relationship, odontoid process and soft tissues are normal. C2-C3: Normal. C3-C4: Very slight anterolisthesis of C3 by 2 mm. Mild bilateral facet joint arthritis, LEFT greater than RIGHT. Small foraminal osteophytes. No high-grade stenosis. C4-C5: Diffuse osteophytic ridging and mild annular disc bulge. Mild encroachment upon the central th ecal sac. Very mild central and foraminal stenosis. Mild LEFT facet arthritis. C5-C6: Moderate annular disc bulging and osteophytic ridging. Mild to moderate central and bilateral foraminal stenosis and facet arthritis. C6-C7: Mild annular disc bulging and osteophytic ridging. Mild facet arthritis. Mild central and bila teral foraminal stenosis. C7-T1: Normal. Paraspinal soft tissue are normal. MR/MR cervical spin wo con* [id number] IMPRESSION: 1. Advanced degenerative disc disease and spondylosis at C4-5, C5-6 and C6-7. 2. Anterolisthesis previously described at C7 is not as apparent by MRI. 3. Mild to moderate central and foraminal stenosis at C5-6. 4. Mild central and foraminal stenosis at C4-5 and C6-7.
== END 2021-09-28 16:22 | disposition home or self-care (01) ==
PROVIDERS: PCP Family Medicine; Visit Provider Family Medicine
DX: M43.12 Spondylolisthesis, cervical region (principal)
CPT/HCPCS: 72141

== ENCOUNTER 2021-11-22 13:03 | Outpatient (CLI) | payer MEDICARE, SELFPAY ==
--- NOTE | 2021-11-22 13:45 | MR_ITS ---
WS: [id number] MRI BRAIN WITH AND WITHOUT CONTRAST HISTORY: SYNCOPE COLLAPSE COMPARISON: 08/24/2009 TECHNIQUE: Multiplanar imaging performed through the brain with MultiHance 15 ml's IV. No acute infarcts are seen. Almeida-white matter differentiation is well preserved. Mild bilateral small vessel ischemic disease. Minimal progression since the prior study from 2009. No susceptibility artifacts or prior lacunar infarcts. Ventricles and extra-axial spaces are normal. Clivus and pituitary gland are normal. Visualized posterior fossa and brainstem are also normal. Postcontrast images are negative for masses or vascular malformations. Dural venous sinuses are normal. Paranasal sinuses: Well aerated with no significant disease. Mastoid air cells: Normal. Calvarium and scalp: Normal. MR/MR head wo/w con [id number] IMPRESSION: 1. No acute infarct or hemorrhage. 2. Mild atrophy and mild small vessel ischemic disease. Only very minimal prog ression of small vessel ischemic disease since the prior study from 2009. 3. No enhancing mass or vascular malformation.
--- NOTE | 2021-11-22 14:30 | MR_ITS ---
WS: [id number] MRA ANGIOGRAPHY [place] OF [place] HISTORY: SYNCOPE COLLAPSE COMPARISON: None available. TECHNIQUE: 3-D MR angiography is performed of the [place]. All images are reviewed including source images. Distal vertebral and basilar arteries are intact with no significant stenosis or plaque. Posterior ce rebral arteries are normal course and caliber. Posterior communicating arteries are both patent. Intracranial portion of the internal carotid arteries are normal course and caliber. No significant a therosclerosis, stenosis or aneurysm identified. Middle and anterior cerebral arteries are both paten t with no significant disease. Anterior communicating artery is also normal. MR/MR angio head wo con [id number] IMPRESSION: Normal MRA [place].
[2021-11-22] MEDS: gadobenate dimeglumine 20 mL vial IV (14:37)
== END 2021-11-22 13:04 | disposition home or self-care (01) ==
PROVIDERS: PCP Family Medicine; Visit Provider Family Medicine
DX: R55 Syncope and collapse (principal); G31.9 Degenerative disease of nervous system, unspecified; I67.82 Cerebral ischemia
CPT/HCPCS: 70544; 70553

== ENCOUNTER → 2021-11-23 08:02 | Outpatient (BNVA) | payer MEDICARE, SELFPAY | PROVIDERS: PCP Family Medicine; Visit Provider Specialist | DX: M17.11 Unilateral primary osteoarthritis, right knee (principal) | CPT/HCPCS: 20610 ==

== ENCOUNTER 2021-12-27 06:56 | Emergency (ER) | payer MEDICARE, SELFPAY ==
[2021-12-27] VITALS (7 sets, daily range): BP systolic 119–124; BP diastolic 72–78; PULSE 63–68; RESP 16–19; TEMP 36.6; O2SAT 97–99; BMI 23.3
--- NOTE | 2021-12-27 07:11 | W.ED.CHESTPA ---
HPI - Chest Pain General: Chief Complaint: Chest Pain Stated Complaint: Chest pains Time Seen by Provider: 12/27/21 07:09 Source: patient Mode of arrival: ambulatory History of Present Illness: 76-year-old female who presents to the emergency room with complaints of chest pain. Patient evidently fell yesterday had a loss of consciousness was on the floor for around 5 to 10 minutes before therapy to get her up. She does not really recall any of this. She complaining of lower rib pain on the left side its worse with palpation worse with deep inspiration. She holds her hand over the area to guarded during exam. She is not on any anticoagulants. She has had this for the last 3 to 4 days according to the who is at the bedside. Pain exacerbated by palpation movement and inspiration relieved by rest and splinting area with pressure from her hand. No radiation of the pain no associated shortness of breath patient had normal stress test in October 2019. Echocardiogram in that same timeframe showed an EF of 54% with some mild thickening of the mitral valve but no stenosis normal aortic valve. MD complaint: chest pain Onset (ago): hour(s) Timing of current episode: constant Prior episodes: Yes Pain location: left chest Pain radiation: none Severity: moderate Quality: sharp Relieving factors: rest and other (Splinting by use of her hand on the lower left ribs) Exacerbating factors: inspiration, palpation and movement Associated symptoms: Deny abdominal pain, diaphoresis, dyspnea, fever(s), leg edema, nausea, palpitations, sense of impending doom, syncope or vomiting Treatment prior to arrival: none Review of Systems Const: Denies: fever(s), chills, fatigue, malaise or diaphoresis ENMT: Denies: throat pain, ear or mastoid pain, nasal discharge or nasal congestion Card: Reports: chest pain; Denies: palpitations, irregular heart rhythm, edema or syncope Resp: Denies: dyspnea GI: Denies: abdominal pain, nausea or vomiting : Denies: flank pain, difficulty voiding, dysuria, urinary frequency or urinary urgency Skin/Breast: Denies: rash or pruritus [facility] PFSH: Medical History Depression DJD (degenerative joint disease) Headache Hypothyroidism Surgical History History of cataract surgery Family History Father Cancer Stroke Mother Hypertension Heart attack Other CAD (coronary artery disease) Denies family history of Rheumatoid arthritis Diabetes Lupus Hyperlipidemia Social History Smoking and tobacco status: never smoked Alcohol intake: current Alcohol intake frequency: 0-2 Drinks per Day History of recent travel: No Physical Exam Const: GENERAL APPEARANCE: cooperative and comfortable ORIENTATION/CONSCIOUSNESS: Yes awake, Yes oriented to person, Yes oriented to place and Yes oriented to time HENMT: COMMON NORMALS: normocephalic, atraumatic and hearing grossly normal bilaterally HEAD & SCALP: normocephalic and atraumatic Chest: CHEST: Yes localized rib tenderness with anteroposterior compression (Left lower ribs) Resp: COMMON NORMALS: normal respiratory effort, No retractions, No use of accessory muscles and clear to auscultation bilaterally AUSCULTATION: clear to auscultation bilaterally Cardio: COMMON NORMALS: regular rate, regular rhythm and No murmurs present (Cardio) RATE: regular rate RHYTHM: regular rhythm GI: COMMON NORMALS: Soft to palpation and No hepatosplenomegaly present AUSCULTATION: Yes normoactive bowel sounds PALPATION: Yes Soft to palpation, No Tenderness to palpation present (GI), No Guarding due to palpation present (GI) and Yes No hepatosplenomegaly present Extremity: COMMON NORMALS: normal to inspection, capillary refill normal, no clubbing, cyanosis or edema, no calf tenderness and no pedal edema Neuro: SENSORIUM/ORIENTATION: Yes oriented to person, Yes oriented to place and Yes oriented to time Skin: COMMON NORMALS: no rashes or lesions noted GENERAL SKIN EXAM: no rashes or lesions noted Course Vital Signs: Vital signs: Vital Signs Temperature 97.9 F 12/27/21 07:13 Pulse Rate 65 12/27/21 11:00 Respiratory Rate 19 H 12/27/21 08:07 Blood Pressure 124/73 12/27/21 11:00 Pulse Oximetry 98 12/27/21 11:00 Oxygen Delivery Me thod 12/27/21 11:00 MDM - Chest Pain Medical Decision Making EKG labs and imaging reviewed as found in the chart. No acute fractures normal EKG is normal troponins discharge patient home suspect she is contused some of her ribs follow-up as needed. Medical Records I reviewed the patient's medical records. Lab Data I reviewed the patient's lab results. : 12/27/21 08:02 12/27/21 08:[address] 12/27/21 07:19 IMPRESSION: No acute intracranial abnormality. Ribs X-Ray 12/27/21 07:19 IMPRESSION: No acute findings. Laboratory Results WBC 6.5 10^3/uL (4.0-10.0) 12/27/21 08:02 RBC 4.49 10^6/uL (4.1-5.3) 12/27/21 08:02 Hgb 13.8 g/dL (11.5-15.3) 12/27/21 08:02 Hct 42.2 % (37.0-47.0) 12/27/21 08:02 MCV 94.0 fl (81-99) 12/27/21 08:02 MCH 30.7 pg (28.0-34.0) 12/27/21 08:02 MCHC 32.7 g/dL (30.0-36.0) 12/27/21 08:02 RDW 12.0 % (12.1-15.1) L 12/27/21 08:02 Plt Count 225 10^3/cmm (130-400) 12/27/21 08:02 MPV 9.9 fL (7.4-10.4) 12/27/21 08:02 Neut % (Auto) 61.1 % 12/27/21 08:02 Lymph % (Auto) 28.4 % 12/27/21 08:02 Gilliam % (Auto) 7.8 % 12/27/21 08:02 Eos % (Auto) 1.8 % 12/27/21 08:02 Baso % (Auto) 0.6 % 12/27/21 08:02 Neut # (Auto) 3.97 10^3/uL (1.8-7.7) 12/27/21 08:02 Lymph # (Auto) 1.9 10^3/uL (0.8-4.8) 12/27/21 08:02 Gilliam # (Auto) 0.5 10^3/uL (0.2-0.9) 12/27/21 08:02 Eos # (Auto) 0.1 10^3/uL (0.0-0.8) 12/27/21 08:02 Baso # (Auto) 0.0 10^3/uL (0.0-0.1) 12/27/21 08:02 Nucleated RBC % (auto) 0 % 12/27/21 08:02 Nucleated RBCs # 0.0 /100WBC 12/27/21 08:02 Sodium 135 mmol/L (136-145) L 12/27/21 08:02 Potassium 4.6 mmol/L (3.5-5.1) 12/27/21 08:02 Chloride 98 mmol/L (98-107) 12/27/21 08:02 Carbon Dioxide 24 mmol/L (22-29) 12/27/21 08:02 Anion Gap 17.6 (5-19) 12/27/21 08:02 BUN 13 mg/dL (8-23) 12/27/21 08:02 Creatinine 0.6 mg/dL (0.5-0.9) 12/27/21 08:02 GFR Calculation Not Reportable 12/27/21 08:02 Glucose 80 mg/dL (65-115) 12/27/21 08:02 Calculated Osmolality 279 mOsm/kg (285-295) L 12/27/21 08:02 Calcium 9.6 mg/dL (8.5-10.5) 12/27/21 08:02 Total Bilirubin 0.3 mg/dL (0.15-1.2) 12/27/21 08:02 AST 24 U/L (0-32) 12/27/21 08:02 ALT 13 U/L (0-33) 12/27/21 08:02 Alkaline Phosphatase 88 U/L (35-105) 12/27/21 08:02 Troponin T Baseline 6 ng/L (0-10) 12/27/21 08:02 Troponin T 120 Minute 6.00 ng/L (0-10) 12/27/21 10:05 Delta Troponin T 0 ABS# (0-10) 12/27/21 10:05 Total Protein 7.4 g/dL (6.6-8.7) 12/27/21 08:02 Albumin 4.8 g/dL (3.5-5.2) 12/27/21 08:02 Globulin 2.6 g/dL (1.3-4.6) 12/27/21 08:02 Discharge Plan Discharge Patient Disposition: Home Clinical Impression: Anterior chest wall pain, Fall Condition: Stable Prescriptions: No Action levothyroxine 100 mcg capsule 100 mcg PO DAILY biotin 10,000 mcg capsule PO hydroxychloroquine 200 mg tablet 200 mg PO BID Qty: 180 0RF Rx Instructions: Take 1 tab daily for 1 week; then 1 tab twice daily. Pepcid paroxetine HCl 10 mg Tablet 10 mg PO DAILY meloxicam 15 mg Tablet 15 mg PO DAILY Discharge Orders: Discharge ED (Routine); Ordered 12/27/21 Ordered By: Matthew Payne Referrals: Ann Marie Cameron MD [Primary Care Provider] - Discharge Diet: Usual diet Discharge Activity: Increase activity as tolerated Patient Instructions: Opioid Safety Coding Level of Care Code ED Clinical Manager Home Care for Janett Fwd Exam Comprehensive
--- NOTE | 2021-12-27 07:17 | ECG_ITS ---
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 Measurements Intervals Victor Rate: 67 P: 59 MS: 155 QRS: 11 QRSD: 81 T: 55 QT: 411 QTc: 434 Interpretive Statements SINUS RHYTHM Compared to ECG 10/29/2019 16:32:59 No significant changes Electronically Signed On 12-27-2021 16:29:00 CDT by Adam Hernandez M.D. [id number]
--- NOTE | 2021-12-27 07:19 | CTR_ITS ---
PROCEDURE INFORMATION: Exam: CT Head Without Contrast Exam date and time: 12/27/2021 7:43 AM Age: 76 years old Clinical indication: Pain and injury or trauma; Fall; Blunt trauma (contusions or hematomas); With loss of consciousness; Headache; Additional info: Closed head injury with brief loss of conscious TECHNIQUE: Imaging protocol: Computed tomography of the head without contrast. Radiation optimization: All CT scans at this facility use at least one of these dose optimization techniques: automated exposure control; mA and/or kV adjustment per patient size (includes targeted exams where dose is matched to clinical indication); or iterative reconstruction. COMPARISON: MR head wo/w con [id number] 11/22/2021 2:00 PM RADIATION DOSE METRICS: Total DLP (mGy-cm): 971.43 FINDINGS: Brain: Normal. No hemorrhage. Unremarkable white matter. No mass effect. Cerebral ventricles: No ventriculomegaly. Paranasal sinuses: Visualized sinuses are unremarkable. No fluid levels. Mastoid air cells: Visualized mastoid air cells are well aerated. Bones/joints: Unremarkable. No acute fracture. Soft tissues: There is subcutaneous swelling over the left supraorbital region. CT/CT head wo con* [id number] IMPRESSION: No acute intracranial abnormality.
--- NOTE | 2021-12-27 07:19 | XRR_ITS ---
PROCEDURE INFORMATION: Exam: XR Left Ribs with PA Chest Exam date and time: 12/27/2021 7:29 AM Age: 76 years old Clinical indication: Chest wall pain; Prior surgery; Surgery type: Tubal ligation; Patient HX: PT woke up with upper left side pain that sits underneath her left breast x 1 day. PT states that she has syncope episodes TECHNIQUE: Imaging protocol: Radiologic exam of the Left ribs with PA chest. Views: 3 views COMPARISON: CR XR chest 2V* [id number] 08/25/2021 10:53 AM FINDINGS: Lungs: Unremarkable. No consolidation. Pleural spaces: Unremarkable. No pleural effusion. No pneumothorax. Heart/Mediastinum: Unremarkable. No cardiomegaly. Bones/joints: Unremarkable. Normal left ribs. XR/XR ribs LT mn 3V w CXR1V [id number] IMPRESSION: No acute findings.
[2021-12-27] MEDS: aspirin 81 mg Chew Tablet 324 MG PO (07:54)
[2021-12-27] MEDS: ketorolac 30 mg/mL INJ 15 MG IVP (08:21)
[2021-12-27 08:23] LABS: Basophils % 0.6 %; Eosinophils # 0.1 10^3/uL (0.0-0.8); Eosinophils % 1.8 %; Hematocrit 42.2 % (37.0-47.0); Hemoglobin 13.8 g/dL (11.5-15.3); Lymphocytes # 1.9 10^3/uL (0.8-4.8); Lymphocytes % 28.4 %; Mean Corpuscular HGB Conc 32.7 g/dL (30.0-36.0); Mean Corpuscular Hemoglobin 30.7 pg (28.0-34.0); Mean Platelet Volume 9.9 fL (7.4-10.4); Monocytes # 0.5 10^3/uL (0.2-0.9); Monocytes % 7.8 %; Neutrophils # 3.97 10^3/uL (1.8-7.7); Neutrophils % 61.1 %; Nucleated Red Blood Cells % 0 %; Platelet Count 225 10^3/cmm (130-400); Red Blood Count 4.49 10^6/uL (4.1-5.3); White Blood Count 6.5 10^3/uL (4.0-10.0)
[2021-12-27 08:53] LABS: Alanine Aminotransferase 13 U/L (0-33); Albumin Level 4.8 g/dL (3.5-5.2); Alkaline Phosphatase 88 U/L (35-105); Blood Urea Nitrogen 13 mg/dL (8-23); Calcium 9.6 mg/dL (8.5-10.5); Carbon Dioxide 24 mmol/L (22-29); Chloride 98 mmol/L (98-107); Globulin 2.6 g/dL (1.3-4.6); Glucose 80 mg/dL (65-115); Osmolality Calculated 279 mOsm/kg (285-295); Sodium 135 mmol/L (136-145); Total Bilirubin 0.3 mg/dL (0.15-1.2); Total Protein 7.4 g/dL (6.6-8.7)
[2021-12-27 08:58] LABS: Troponin(5th) Baseline 6 ng/L (0-10)
[2021-12-27 09:00] LABS: Anion Gap 17.6 (5-19); Potassium 4.6 mmol/L (3.5-5.1)
[2021-12-27 09:01] LABS: Aspartate Amino Transferase 24 U/L (0-32)
[2021-12-27 11:03] LABS: Troponin 5 2HR Delta 0 ABS# (0-10)
== END 2021-12-27 11:05 | disposition home or self-care (01) ==
PROVIDERS: Emergency Provider Family Medicine; PCP Family Medicine
DX: R07.89 Other chest pain (principal)
CPT/HCPCS: 70450; 71101; 80053; 84484; 85025; 93005; 99285; J1885

== ENCOUNTER 2021-12-29 13:34 | Emergency (ER) | payer MEDICARE, SELFPAY ==
[2021-12-29 14:14] VITALS: BP 135/80; PULSE 73; RESP 16; TEMP 36.7; O2SAT 98; BMI 22.4
--- NOTE | 2021-12-29 15:13 | W.ED.FALL ---
HPI - Fall General: Chief Complaint: Fall Stated Complaint: fall Time Seen by Provider: 12/29/21 14:49 Source: patient and family (Spouse) Mode of arrival: ambulatory Limitations: no limitations History of Present Illness: This patient returns to the emergency department because of concerns about persistent headache lightheadedness, nausea as well as some upper abdominal and lower rib cage pains. She apparently had a fall on Saturday and was seen in the emergency department on Saturday. She had a evaluation at that time which showed no significant concerning findings. Circumstances regarding her fall was that she was lying in bed got out of bed to go to the bathroom and then collapsed. She had no prodrome to this episode. She had a similar episode approximately 2 weeks prior but did not injure herself at that time. Her relates that she had a loss of consciousness and was out for period of time when he been to her aid. There was no seizure activity. She states that she is not aware of any palpitations or irregular heartbeat chest pain shortness of breath etc. She has previously been seen by supply cataloguer within the last month or so who started her on metoprolol. 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 She had COVID in May of this year and convalesced at home but still has a lot of somatic symptoms that are inexplicable to her and her spouse. Her spouse is concerned that she might not had any imaging done when she was seen on Saturday and therefore is here because of that concern at the urging of their primary care doctor. She states that she ate last few days normally any vomiting or diarrhea or change in her stools etc. MD complaint: fall Prolonged down time: yes Symptoms prior to fall: none Context: new medication Associated symptoms-after fall: Reports abdominal pain and headache(s); Denies chest pain, confusion or neck pain Review of Systems Const: Denies: fever(s) or chills Eyes: Denies: change in vision or blurry vision ENMT: Denies: throat pain, odynophagia, change in hearing, nasal discharge or nasal congestion Card: Denies: chest pain, palpitations, irregular heart rhythm, edema, swelling of feet/ankles or dyspnea on exertion Resp: Denies: dyspnea, productive cough or non-productive cough GI: Reports: abdominal pain and nausea; Denies: vomiting, hematemesis, change in bowel habits, pain on defecation or hematochezia : Denies: flank pain, difficulty voiding, dysuria or urinary frequency Musc: Denies: neck pain, back pain, extremity pain, extremity swelling, joint pain or joint swelling Skin/Breast: Denies: rash Neuro: Reports: headache(s); Denies: numbness in extremities, weakness in extremities, confusion, behavioral changes or seizure-like activity Psych: Denies: anxiety or depression Carroll/Lymph: Denies: easy bruising or easy bleeding PFSH ED PFSH: Medical History Depression DJD (degenerative joint disease) Headache Hypothyroidism Surgical History History of cataract surgery Family History Father Cancer Stroke Mother Hypertension Heart attack Other CAD (coronary artery disease) Denies family history of Rheumatoid arthritis Diabetes Lupus Hyperlipidemia Social History Smoking and tobacco status: never smoked Alcohol intake: current Alcohol intake frequency: 0-2 Drinks per Day History of recent travel: No Physical Exam Narrative: EXAM NARRATIVE: Alert makes good eye contact. Speech is goal-directed and fluent. Const: COMMON NORMALS: no acute distress, average body habitus, patient oriented x3 and alert GENERAL APPEARANCE: cooperative and comfortable HENMT: COMMON NORMALS: Normal external nose present FACE & SINUS: sinuses nontender, face symmetric and ecchymosis (Ecchymosis left temporal region and supraorbital. No step-off.) on the left NOSE: Normal external nose present MOUTH: no mouth trauma Eye: COMMON NORMALS: Equal, round and reactive pupils present, EOMs intact bilaterally, conjunctivae normal and no scleral icterus CONJUNCTIVA: Yes conjunctivae normal PUPIL: Yes Equal, round and reactive pupils present Neck/C-Spine: COMMON NORMALS: full ROM CERVICAL SPINE: Yes cervical ROM normal, No Cervical spine tenderness, No step off deformity, No Paracervical muscle tenderness, No Paracervical spasm and No Trapezius muscle tenderness Chest: COMMONS NORMALS: normal inspection of the chest OTHER: Tenderness left anterior lower rib. Resp: COMMON NORMALS: normal respiratory effort, No retractions, No use of accessory muscles and clear to auscultation bilaterally AUSCULTATION: clear to auscultation bilaterally Cardio: COMMON NORMALS: regular rhythm, S1 normal heart sound present, S2 normal heart sound present, No murmurs present (Cardio) and Peripheral pulses 2+ throughout RHYTHM: regular rhythm HEART SOUNDS: S1 normal heart sound present and S2 normal heart sound present PERIPHERAL PULSES: Peripheral pulses 2+ throughout GI: COMMON NORMALS: Normal to inspection, nondistended, normoactive bowel sounds present, No hepatosplenomegaly present and no masses PALPATION: Yes No hepatosplenomegaly present OTHER: No ecchymosis or abrasions noted on the abdominal examination. She has tender in the left subcostal region extending up to the lower rib margin on the left. Again no subcutaneous emphysema, palpable crepitance or or notable ecchymosis. : COMMON NORMALS: Yes no CVA tenderness BLADDER/KIDNEY EXAM: Yes no CVA tenderness Back/Pelvis: COMMON NORMALS: no CVA tenderness, thoracic and lumbar spine normal to inspection, no thoracic nor lumbar tenderness and straight leg raise negative bilaterally Extremity: COMMON NORMALS: normal to inspection, full ROM, capillary refill normal, no joint enlargement, no calf tenderness and no pedal edema Neuro: COMMON NORMALS: patient oriented x3, moves all extremities, no focal motor deficits and no sensory deficits noted SENSORIUM/ORIENTATION: Yes alert CRANIAL NERVES: Yes CN normal except as noted Psych: COMMON NORMALS: mental status grossly normal Skin: COMMON NORMALS: no rashes or lesions noted and no wounds GENERAL SKIN EXAM: no rashes or lesions noted and ecchymosis (Left scalp) TRAUMA: no lacerations or abrasions Course Reevaluation(s): Reevaluation #1: Orthostatic blood pressures were obtained. Her blood pressure and pulse rate remain relatively unchanged and steady from lying to sitting to standing. Numbers are documented in the nursing notes. Her imaging studies are reassuring. I have shared current findings with the patient. Repeat examination reveals her to be alert conversant pupils equal no motor deficits no sensory deficits and no other findings on repeat evaluation. Stable at this time and suitable to be discharged to outpatient follow-up. Time: 17:33 Vital Signs: Vital signs: Vital Signs Temperature 98.1 F 12/29/21 14:14 Pulse Rate 58 L 12/29/21 16:07 Respiratory Rate 16 12/29/21 15:45 Blood Pressure 144/81 12/29/21 16:07 Pulse Oximetry 98 12/29/21 15:45 Oxygen Delivery Me thod 12/29/21 15:45 MDM - Fall Medical Decision Making This patient returns to the emergency department because of some persistent symptoms of headache as well as some left-sided upper abdominal and rib pain. She has had 2 falls in the last 2 weeks and was evaluated in the emergency department and there was some question on the spouses part of whether she received imaging at the time she was seen in the emergency department. Her clinical evaluation was reassuring and nonfocal. She had ecchymosis noted in the left temporal region with some localized tenderness and some mild tenderness to the left anterior lower rib cage upper abdomen without any peritoneal signs etc. Subsequent imaging studies were reassuring. They did mention there was some nontraumatic findings on the CT scan but clinically these are not consistent with her condition. She has had no symptoms to suggest gastroduodenitis or pancreatitis. Recent laboratories were reviewed as well. Her current presentation is consistent with postconcussive symptoms from her fall and concussion. While her orthostatic blood pressures and her rhythm are reassuring here she may be suffering from orthostatic changes because of her recent pressure change that is affecting her when she attempts to get up from a sleeping position at night. I have encouraged her to monitor her blood pressure at home as well as sit at the side of the bed for a period of time to allow equilibration prior to getting up and going to the bathroom. She acknowledges discussion and is stable at this time. Medical Records I reviewed the patient's medical records. Ancillary studies from 12/27/2021 emergency department reviewed. Lab Data I reviewed the patient's lab results. Radiology Impressions Abdomen/Pelvis CT 12/29/21 15:23 IMPRESSION: Findings are suggestive of gastroduodenitis. There is questionable acute pancreatitis. Correlation with amylase and lipase are suggested. COMMENTS: Consistent with the [employer]'s Incidental Findings Committee white paper (J Am Asrah Radiol 2018): Any incidental renal lesion less than 1 cm or classified as too small to characterize, or any incidental cystic renal lesion characterized as simple-appearing, is likely benign. No follow-up imaging is recommended for these lesions per consensus recommendations based on imaging criteria. Head CT 12/29/21 15:23 IMPRESSION: No acute intracranial finding. Discharge Plan Discharge Patient Disposition: Home Clinical Impression: Post-concussion headache Condition: Stable Prescriptions: No Action levothyroxine 100 mcg capsule 100 mcg PO DAILY biotin 10,000 mcg capsule 10,000 mcg PO DAILY paroxetine HCl 10 mg Tablet 10 mg PO DAILY meloxicam 15 mg Tablet 15 mg PO DAILY Vitamin B-12 50 mcg Tablet 50 mcg PO DAILY famotidine 20 mg Tablet 20 mg PO DAILY PRN (Reason: Acid Reflux) losartan 25 mg tablet 25 mg PO DAILY metoprolol succinate 25 mg tablet extended release 24 hr 25 mg PO DAILY Flonase Allergy Relief 50 mcg/actuation [place],Suspension 1 spray INTRANASAL DAILY Rx Instructions: administer into each nostril Discharge Orders: Discharge ED (Routine); Ordered 12/29/21 Ordered By: Jd Mas Referrals: Ann Marie Cameron MD [Primary Care Provider] - Discharge Diet: Usual diet Discharge Activity: Increase activity as tolerated Patient Instructions: Opioid Safety Activity Restrictions/Additional Instructions: Continue your usual medications. Monitor your blood pressure 2-3 times weekly and record those numbers. Call your family doctor for follow-up appointment in the next 2 weeks to review your medications and blood pressures. You develop any new or worsening symptoms return to this or the nearest emergency department. Coding Level of Care Code ED After School Caregiver for Janett Barnes Exam Comprehensive
--- NOTE | 2021-12-29 15:23 | CTR_ITS ---
PROCEDURE INFORMATION: Exam: CT Abdomen And Pelvis Without Contrast Exam date and time: 12/29/2021 4:31 PM Age: 76 years old Clinical indication: Injury or trauma; Fall; Blunt; Luq; Prior surgery; Surgery type: Tubal; Additional info: Fall with pain left upper abd, chest TECHNIQUE: Imaging protocol: Computed tomography of the abdomen and pelvis without contrast. Radiation optimization: All CT scans at this facility use at least one of these dose optimization techniques: automated exposure control; mA and/or kV adjustment per patient size (includes targeted exams where dose is matched to clinical indication); or iterative reconstruction. COMPARISON: CT lumbar spine wo con* [id number] 12/16/2019 3:42 PM RADIATION DOSE METRICS: Total DLP (mGy-cm): 555.93 FINDINGS: Liver: There is a 2.9 cm cyst in the superior central liver. Gallbladder and bile ducts: Normal. No calcified stones. No ductal dilation. Pancreas: There may be a edema of the pancreatic head and uncinate process. No pancreatic calcification or pseudocyst. Spleen: Normal. No splenomegaly. Adrenal glands: Normal. No mass. Kidneys and ureters: There is a 3.5 cm cyst in the mid left kidney. No hydronephrosis. Stomach and bowel: There is wall thickening of the gastric antrum and duodenum. Colonic diverticula are present although there are no CT findings to suggest diverticulitis. No bowel obstruction. Appendix: The appendix is visualized and appears normal. Intraperitoneal space: Unremarkable. No free air. No significant fluid collection. Vasculature: Unremarkable. No abdominal aortic aneurysm. Lymph nodes: Unremarkable. No enlarged lymph nodes. Urinary bladder: Unremarkable as visualized. Reproductive: Unremarkable as visualized. Bones/joints: Unremarkable. No acute fracture. Soft tissues: Unremarkable. CT/CT abdomen pelvis wo con [id number] IMPRESSION: Findings are suggestive of gastroduodenitis. There is questionable acute pancreatitis. Correlation with amylase and lipase are suggested. COMMENTS: Consistent with the [employer]'s Incidental Findings Committee white paper (J Am Sarah Radiol 2018): Any incidental renal lesion less than 1 cm or classified as too small to characterize, or any incidental cystic renal lesion characterized as simple-appearing, is likely benign. No follow-up imaging is recommended for these lesions per consensus recommendations based on imaging criteria.
--- NOTE | 2021-12-29 15:23 | CTR_ITS ---
PROCEDURE INFORMATION: Exam: CT Head Without Contrast Exam date and time: 12/29/2021 4:28 PM Age: 76 years old Clinical indication: Injury or trauma; Fall; Blunt trauma (contusions or hematomas); With loss of consciousness; Loss of consciousness for 30 minutes or less; Additional info: Follow up on trauma- TECHNIQUE: Imaging protocol: Computed tomography of the head without contrast. Radiation optimization: All CT scans at this facility use at least one of these dose optimization techniques: automated exposure control; mA and/or kV adjustment per patient size (includes targeted exams where dose is matched to clinical indication); or iterative reconstruction. COMPARISON: CT head wo con* [id number] 12/27/2021 7:43 AM RADIATION DOSE METRICS: Total DLP (mGy-cm): 844.68 FINDINGS: Brain: Mild diffuse cortical volume loss. Mild hypodensities in supratentorial periventricular and subcortical white matter, consistent with microangiopathy. No intracranial hemorrhage. Cerebral ventricles: No ventriculomegaly. Paranasal sinuses: Visualized sinuses are unremarkable. No fluid levels. Mastoid air cells: Visualized mastoid air cells are well aerated. Orbital cavities: Prior cataract surgery. Bones/joints: Unremarkable. No acute fracture. Soft tissues: Small left frontotemporal scalp contusion. Vasculature: No hyperdense artery. CT/CT head wo con* [id number] IMPRESSION: No acute intracranial finding.
[2021-12-29 15:45] VITALS: BP 160/85; PULSE 70; RESP 16; O2SAT 98
[2021-12-29 16:07] VITALS: BP 140/101; BP 143/79; BP 144/81; PULSE 57; PULSE 58; PULSE 59
== END 2021-12-29 18:18 | disposition home or self-care (01) ==
PROVIDERS: Emergency Provider Emergency Medicine; PCP Family Medicine
DX: G44.89 Other headache syndrome (principal); F07.81 Postconcussional syndrome
CPT/HCPCS: 70450; 74176; 99285

== ENCOUNTER → 2022-01-15 11:01 | Outpatient (BNVA) | payer MEDICARE, SELFPAY | PROVIDERS: PCP Family Medicine; Referring Provider Family Medicine; Visit Provider Specialist | DX: M17.12 Unilateral primary osteoarthritis, left knee (principal); M25.562 Pain in left knee | CPT/HCPCS: 73560; 73565; 99213 ==

== ENCOUNTER → 2022-03-22 10:02 | Outpatient (BNVA) | payer MEDICARE, SELFPAY | PROVIDERS: PCP Family Medicine; Visit Provider Specialist | DX: M17.11 Unilateral primary osteoarthritis, right knee (principal) | CPT/HCPCS: 20610; J1100; J2795; J3301 ==

== ENCOUNTER → 2022-06-07 09:55 | Outpatient (BNVA) | payer MEDICARE, SELFPAY | PROVIDERS: PCP Family Medicine; Visit Provider Specialist | DX: M17.0 Bilateral primary osteoarthritis of knee (principal) | CPT/HCPCS: 20610; J1100; J2795; J3301 ==

== ENCOUNTER 2022-06-21 12:47 | Outpatient (CLI) | payer MEDICARE, SELFPAY ==
--- NOTE | 2022-06-21 13:28 | XR_ITS ---
WS: [id number] SCREENING DEXA SCAN [employer] CLINICAL INFORMATION: ASYMPTOMATIC MENOPAUSAL STATE COMPARISON: 2019 FINDINGS: The L1-L4 bone mineral density measures 1.198 g/cm2. This corresponds to a T score score of 0.2 and Z score of 1.7. Left femoral neck bone mineral density measures 0.872 g/cm2. This corresponds to a T score of -1.1 an d Z score of 0.6. Right femoral neck bone mineral density measures 0.875 g/cm2. This corresponds to a T score -1.1of an d Z score of 0.6. Mean femoral neck bone mineral density measures 0.874 g/cm2. This corresponds to a T score of -1.1 an d Z score of 0.6. XR/XR DEXA axial skeleton* [id number] IMPRESSION: Normal bone mineralization lumbar spine. Osteopenia femoral necks. Patient's FRAX calculated 10 year probability for major osteoporotic fracture i s 10.7 % and osteoporotic hip fracture is 2.0%. Bone mineralization has decreased -0.1% since 2020. Bone mineralization femoral necks decreased -2.8% since 2020.
== END 2022-06-21 12:48 | disposition home or self-care (01) ==
LOC: RAD 12:48
PROVIDERS: PCP Family Medicine; Visit Provider Family Medicine
DX: Z78.0 Asymptomatic menopausal state (principal)
CPT/HCPCS: 77080

== ENCOUNTER 2022-06-22 08:18 | Emergency (ER) | payer MEDICARE, SELFPAY ==
[2022-06-22 08:25] VITALS: BP 121/77; PULSE 77; RESP 16; TEMP 36.7; O2SAT 99; BMI 28.1
--- NOTE | 2022-06-22 08:31 | XR_ITS ---
WS: [id number] Chest with left rib detail, 06/22/2022 Clinical Data: fall, L lower posterior/lateral rib pain Comparison: Chest with left rib detail, 12/27/2021 Findings: The lungs show no nodules, masses, or effusions. The heart is normal. No pneumonia or pneumothorax is seen. The aortic arch and descending thoracic aorta show tortuosity. The ribs are intact. No rib fractures seen. No subcutaneous emphysema is present. XR/XR ribs LT mn 3V w CXR1V [id number] Impression: Negative chest with left rib detail.
--- NOTE | 2022-06-22 08:32 | W.ED.FALL ---
HPI - Fall General: Chief Complaint: Fall Stated Complaint: fall, back injury Time Seen by Provider: 06/22/22 08:20 Source: patient and family () Mode of arrival: ambulatory Limitations: no limitations History of Present Illness: Patient is a very nice 77-year-old female presents to ED today along with her for evaluation of back pain following a fall. Patient tells me she has a history of falls due to getting dizzy when she stands up too suddenly. She states this has been present since she was diagnosed with COVID about a year ago. states she has had extensive work-ups through her PCP in regards to the dizziness/long haul COVID symptoms. Patient feels like this most likely is what caused her fall yesterday. She also admits to some alcohol use that she feels may have contributed. She states she struck her left back on the toilet. She denies striking her head or LOC. Did not have any chest pain, shortness of breath, difficulty breathing at the time of the fall nor has she had any throughout the night and into this morning. Patient states at time of initial examination that she feels normal apart from pain in the left side of her back. She is ambulatory without assistance or difficulty. She is not having any abdominal pain. No hematuria. MD complaint: fall Onset (ago): hour(s) Fall from: standing Fall witnessed: no Place fall occurred: home Loss of consciousness: None Prolonged down time: no Context: alcohol use and history of frequent falls Location of injury: back Associated symptoms-after fall: Denies abdominal pain, chest pain, difficulty walking, headache(s), hematuria, lightheadedness or neck pain Review of Systems Const: Reports: fatigue (chronic since COVID); Denies: fever(s), chills, body aches or malaise Eyes: Denies: change in vision, blurry vision, floaters or seeing flashes Card: Denies: chest pain, palpitations, irregular heart rhythm, edema, swelling of feet/ankles, lightheadedness, syncope, pre-syncope, dyspnea on exertion, orthopnea, leg pain with exertion or acrocyanosis Resp: Denies: dyspnea GI: Denies: abdominal pain, nausea or vomiting : Denies: flank pain, dysuria or hematuria Musc: Reports: back pain; Denies: neck pain, extremity pain, extremity swelling, joint pain or joint swelling Neuro: Reports: dizziness (intermittent-chronic since COVID); Denies: headache(s), numbness in extremities, weakness in extremities, sensory changes or difficulty walking PFSH ED PFSH: Medical History Depression DJD (degenerative joint disease) Headache Hypothyroidism Surgical History History of cataract surgery Family History Father Cancer Stroke Mother Hypertension Heart attack Other CAD (coronary artery disease) Denies family history of Rheumatoid arthritis Diabetes Lupus Hyperlipidemia Social History Smoking and tobacco status: never smoked Alcohol intake: current Alcohol intake frequency: 0-2 Drinks per Day Physical Exam Const: COMMON NORMALS: no acute distress, average body habitus, patient oriented x3, no limitations, healthy appearing, alert and well nourished GENERAL APPEARANCE: cooperative ORIENTATION/CONSCIOUSNESS: Yes awake, Yes oriented to person, Yes oriented to place and Yes oriented to time HENMT: COMMON NORMALS: normocephalic and atraumatic HEAD & SCALP: normal to inspection, normocephalic and atraumatic Neck/C-Spine: COMMON NORMALS: full ROM CERVICAL SPINE: Yes cervical ROM normal, No pain with cervical ROM, No Cervical spine tenderness, No step off deformity and No Paracervical muscle tenderness Chest: COMMONS NORMALS: normal inspection of the chest and normal palpation of entire chest wall Resp: COMMON NORMALS: normal respiratory effort and clear to auscultation bilaterally AUSCULTATION: clear to auscultation bilaterally Cardio: COMMON NORMALS: regular rate and regular rhythm RATE: regular rate RHYTHM: regular rhythm GI: COMMON NORMALS: Normal to inspection, nondistended, normoactive bowel sounds present, Soft to palpation, non-tender, No hepatosplenomegaly present and no masses INSPECTION: No abdominal wall ecchymosis PALPATION: Yes Soft to palpation and Yes No hepatosplenomegaly present : COMMON NORMALS: Yes no CVA tenderness BLADDER/KIDNEY EXAM: Yes no CVA tenderness Back/Pelvis: COMMON NORMALS: no CVA tenderness THORACIC SPINE/UPPER BACK: No thoracic spinal tenderness LUMBAR SPINE/LOWER BACK: No lumbar spinal tenderness PELVIS: Yes buttocks normal SACROILIAC JOINTS: Yes SI joints normal SACRUM: no tenderness COCCYX: no tenderness BACK IMAGE (FEMALE): 1. TTP L lower posterior ribs; no crepitus noted; small amount of erythema/abrasion present; no ecchymosis Extremity: COMMON NORMALS: normal to inspection and full ROM GENERAL: Yes normal exam except as noted Neuro: COMMON NORMALS: patient oriented x3, moves all extremities, no focal motor deficits, no sensory deficits noted and gait normal SENSORIUM/ORIENTATION: Yes alert, Yes oriented to person, Yes oriented to place and Yes oriented to time Course Vital Signs: Vital signs: Vital Signs Temperature 98.1 F 06/22/22 08:25 Pulse Rate 78 06/22/22 08:56 Respiratory Rate 16 06/22/22 08:56 Blood Pressure 125/78 06/22/22 08:56 Pulse Oximetry 98 06/22/22 08:56 Oxygen Delivery Me thod 06/22/22 08:56 MDM - Fall Medical Decision Making Patient reports she has had similar episodes of dizziness countless times previously ever since her COVID diagnosis over a year ago. She does not want any work-up in regards to this. Patient with tenderness over her left posterior ribs. XRs negative. She has no abdominal pain. No abdominal, flank, back ecchymosis. No hematuria. Vital signs are normal. I would have a very low suspicion for intra-abdominal/retroperitoneal injury. No pneumothorax on CXR. She does not want any prescription pain medication and states she feels comfortable with OTC medication. Strict return ED precautions given to which she voiced understanding. Lab Data Radiology Impressions Ribs X-Ray 06/22/22 08:31 Impression: Negative chest with left rib detail. Discharge Plan Discharge Patient Disposition: Home Clinical Impression: Contusion of rib on left side Qualifiers: Encounter type: initial encounter Qualified Code(s): S20.212A - Contusion of left front wall of thorax, initial encounter Condition: Stable Prescriptions: No Action biotin 10,000 mcg capsule 10,000 mcg PO QAM meloxicam 15 mg Tablet 15 mg PO QAM paroxetine HCl 10 mg tablet 20 mg PO QAM Tylenol Ex Str Rapid Release 500 mg Tablet 500 - 1,000 mg PO Q6H PRN (Reason: Pain) levothyroxine 100 mcg tablet 100 mcg PO QAM famotidine 20 mg Tablet 20 mg PO DAILY PRN (Reason: Acid Reflux) losartan 25 mg tablet 25 mg PO QAM metoprolol succinate 25 mg tablet extended release 24 hr 25 mg PO QAM fluticasone propionate [Flonase Allergy Relief] 50 mcg/actuation [place],Suspension 2 spray INTRANASAL QAM Rx Instructions: administer into each nostril Discharge Orders: Discharge ED (Routine); Ordered 06/22/22 Ordered By: Haydee Wong Referrals: Ann Marie Cameron MD [Primary Care Provider] - Patient Instructions: Rib Contusion (ED) Activity Restrictions/Additional Instructions: As we discussed you need to return to the emergency department for worsening or not improving pain, development of abdominal pain or bruising to your abdomen, severe dizziness-different than your baseline/normal, urinating blood, or any other concerns you may have. I hope you begin to feel better soon. Coding Level of Care Code ED Toll Gate Tender for Janett Barnes
[2022-06-22 08:56] VITALS: BP 125/78; PULSE 78; RESP 16; O2SAT 98
[2022-06-22 09:56] VITALS: BP 125/70; PULSE 64; O2SAT 94
== END 2022-06-22 09:57 | disposition home or self-care (01) ==
PROVIDERS: Emergency Provider Physician Assistant; PCP Family Medicine
DX: S20.212A Contusion of left front wall of thorax, initial encounter (principal); W18.39XA Other fall on same level, initial encounter
CPT/HCPCS: 71101; 99283

== ENCOUNTER 2022-09-20 14:47 | Outpatient (CLI) | payer MEDICARE, SELFPAY ==
--- NOTE | 2022-09-20 14:55 | USCV_ITS ---
Cassy Rockwell Age: 77 Gender: F : 1945 Exam Date: 09/20/2022 15:14 Ordering Phys: Ann Marie Cameron MD Technologist: Max Sidhu [place] [facility] [place]: syncope and collapse Risk Factors: Previous Vascular Surgery: Right Brachial BP: / Left Brachial BP: / Right Left Velocity (cm/s) Spectral Plaque Velocity (cm/s) Spectral Plaque Syst/Diast Broadening Syst/Diast Broadening 79.70/ 24.40 Prox CCA 70.00 / 22.10 79.70/ 22.50 Mid CCA 76.90 / 21.40 71.30/ 23.40 Distal CCA 64.10 / 23.90 78.60/ 22.50 Prox ICA 79.50 / 23.90 58.80/ 22.50 Mid ICA 80.80 / 33.50 66.10/ 19.20 Distal ICA 65.70 / 25.60 80.70 ECA 76.90 0.74 ICA/CCA 1.05 Antegrade Vertebral Antegrade 60.10/ 19.20 cm/s 48.60/ 10.50 cm/s Tri Subclavian Tri 77.00 71.00 FINDINGS Comparison: none available. No significant elevation of systolic or diastolic velocities. Waveforms are normal. Minimal bilateral, carotid atherosclerosis with no elevation of velocity. Dr. Corina Hillman DO (Electronically Signed) Final Date: 20 Sep 2022 16:01 S
== END 2022-09-20 14:48 | disposition home or self-care (01) ==
LOC: RAD 14:49
PROVIDERS: PCP Family Medicine; Visit Provider Family Medicine
DX: R55 Syncope and collapse (principal); R00.1 Bradycardia, unspecified
CPT/HCPCS: 93242; 93246; 93880

== ENCOUNTER 2022-11-16 09:10 | Outpatient (RCR) | payer MEDICARE, SELFPAY | END 2022-11-23 23:59 | disposition home or self-care (01) | LOC: SPT 09:10 | PROVIDERS: Visit Provider Family Medicine | DX: R53.1 Weakness (principal); R42 Dizziness and giddiness | CPT/HCPCS: 97161 ==

== ENCOUNTER → 2022-12-13 13:35 | Outpatient (BNVA) | payer MEDICARE, SELFPAY | PROVIDERS: Visit Provider Specialist | DX: M17.0 Bilateral primary osteoarthritis of knee (principal) | CPT/HCPCS: 20610; J1100; J2795; J3301 ==

== ENCOUNTER → 2022-12-24 11:32 | Outpatient (BNVA) | payer MEDICARE, SELFPAY | PROVIDERS: PCP Family Medicine; Visit Provider Internal Medicine Cardiovascular Disease | DX: R00.1 Bradycardia, unspecified (principal) | CPT/HCPCS: 93005; 99204 ==

== ENCOUNTER → 2023-04-04 09:40 | Outpatient (BNVA) | payer MEDICARE, SELFPAY | PROVIDERS: PCP Family Medicine; Visit Provider Specialist | DX: M17.0 Bilateral primary osteoarthritis of knee (principal) | CPT/HCPCS: 20610; J1100; J2795; J3301 ==

== ENCOUNTER → 2023-04-23 10:03 | Outpatient (BNVA) | payer MEDICARE, SELFPAY | PROVIDERS: PCP Family Medicine; Visit Provider Internal Medicine Cardiovascular Disease | DX: R42 Dizziness and giddiness (principal); I47.10 Supraventricular tachycardia, unspecified | CPT/HCPCS: 99214 ==

== ENCOUNTER → 2023-06-28 08:57 | Outpatient (BNVA) | payer MEDICARE, SELFPAY | PROVIDERS: PCP Family Medicine; Visit Provider Specialist | DX: M17.0 Bilateral primary osteoarthritis of knee (principal) | CPT/HCPCS: 20610; J1100; J2795; J3301 ==

== ENCOUNTER → 2023-09-27 10:01 | Outpatient (BNVA) | payer MEDICARE, SELFPAY | PROVIDERS: PCP Family Medicine; Visit Provider Specialist | DX: M25.561 Pain in right knee (principal); M17.0 Bilateral primary osteoarthritis of knee; M25.562 Pain in left knee | CPT/HCPCS: 20610; J1100; J2795; J3301 ==

== ENCOUNTER 2023-12-10 16:16 | Emergency (ER) | payer MEDICARE, SELFPAY ==
--- NOTE | 2023-12-10 16:17 | ECG_ITS ---
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 Measurements Intervals [place] Rate: 71 P: 44 VA: 148 QRS: 14 QRSD: 76 T: 57 QT: 381 QTc: 416 Interpretive Statements SINUS RHYTHM Compared to ECG 12/24/2022 11:41:42 Ventricular premature complex(es) no longer present Electronically Signed On 12-10-2023 18:10:26 CDT by Edwin Viveros M.D. [id number] f
--- NOTE | 2023-12-10 16:20 | XRR_ITS ---
PROCEDURE INFORMATION: Exam: XR Chest Exam date and time: 12/10/2023 4:48 PM Age: 78 years old Clinical indication: Pain; Chest pressure; Additional info: Cp TECHNIQUE: Imaging protocol: Radiologic exam of the chest. Views: 1 view. COMPARISON: CR XR ribs LT mn 3V w CXR1V [id number] 06/22/2022 8:51 AM FINDINGS: Lungs: Unremarkable. No consolidation. Pleural spaces: Unremarkable. No pleural effusion. No pneumothorax. Heart/Mediastinum: Unremarkable. No cardiomegaly. Bones/joints: Unremarkable. XR/XR chest 1V portable [id number] IMPRESSION: No acute plain radiographic cardiopulmonary abnormality.
[2023-12-10 16:25] VITALS: BP 123/79; PULSE 70; RESP 16; TEMP 36.6; O2SAT 96
[2023-12-10 16:27] VITALS: BP 124/86; PULSE 77; RESP 16; O2SAT 100
--- NOTE | 2023-12-10 17:24 | ED_ITS ---
HPI - Chest Pain 2 General: Chief Complaint: Chest Pain Stated Complaint: Chest Pressure Time Seen by Provider: 12/10/23 17:18 Source: patient Mode of arrival: ambulatory Limitations: no limitations History of Present Illness: 78-year-old female states over the last 2 days she has been having some nausea feeling well along with chest pressure. States she has had a pressure in the center of her chest been mild states been constant since Saturday. She denies any cough or fever denies any abdominal pain denies any shortness of breath. No history of heart disease. Associated symptoms: Reports nausea; Deny abdominal pain, dyspnea, fever(s) or vomiting Review of Systems 2 Const: Denies: fever(s), chills, body aches or change in appetite ENMT: Denies: throat pain or dental pain Card: Reports: chest pain Resp: Denies: dyspnea GI: Reports: nausea; Denies: abdominal pain, vomiting or diarrhea Musc: Denies: neck pain or back pain Skin/Breast: Denies: rash Neuro: Denies: headache(s) PFSH ED 2 PFSH: Medical History Headache Depression DJD (degenerative joint disease) Hypothyroidism Surgical History History of cataract surgery Family History Father Stroke CAD (coronary artery disease) Lung CA Mother Hypertension Heart attack Social History Smoking and tobacco/nicotine status: never used tobacco/nicotine Alcohol intake: current Alcohol intake frequency: 0-2 Drinks per Day Substance/Drug Use: never Physical Exam 2 Const: COMMON NORMALS: no acute distress, patient oriented x3 and healthy appearing HENMT: COMMON NORMALS: normocephalic and atraumatic HEAD & SCALP: n ormocephalic and atraumatic Eye: COMMON NORMALS: conjunctivae normal CONJUNCTIVA: Yes conjunctivae normal Neck/C-Spine: COMMON NORMALS: full ROM and supple Chest: COMMONS NORMALS: normal inspection of the chest and normal palpation of entire chest wall Resp: COMMON NORMALS: normal respiratory effort, No retractions, No use of accessory muscles and clear to auscultation bilaterally AUSCULTATION: clear to auscultation bilaterally Cardio: COMMON NORMALS: regular rate, regular rhythm and No murmurs present (Cardio) RATE: regular rate RHYTHM: regular rhythm GI: COMMON NORMALS: Normal to inspection, nondistended, normoactive bowel sounds present, Soft to palpation, non-tender and no masses PALPATION: Yes Soft to palpation Extremity: COMMON NORMALS: normal to inspection and full ROM Neuro: COMMON NORMALS: patient oriented x3, moves all extremities and no focal motor deficits Psych: COMMON NORMALS: mental status grossly normal, Normal thought process present and cooperative THOUGHT PROCESS: Normal thought process present Skin: COMMON NORMALS: no rashes or lesions noted and no wounds GENERAL SKIN EXAM: no rashes or lesions noted Course 2 Vital Signs: Vital signs: Vital Signs Temperature 97.9 F 12/10/23 20:12 Pulse Rate 68 12/10/23 20:12 Respiratory Rate 18 12/10/23 20:12 Blood Pressure 127/79 12/10/23 20:12 Pulse Oximetry 95 12/10/23 20:12 Oxygen Delivery Me thod Room Air 12/10/23 19:57 MDM - Chest Pain Medical Decision Making Patient presents here with chest pain that has been going on for days atypical in nature her initial and repeat troponins here are negative she is well- appearing here she stable for discharge follow-up with PCP and return if worsening. Medical Records I reviewed the patient's medical records. Lab Data I reviewed the patient's lab results. 12/10/23 17:30 12/10/23 17:30 Radiology Impressions Chest X-Ray 12/10/23 16:20 IMPRESSION: No acute plain radiographic cardiopulmonary abnormality. Laboratory Results WBC 3.20 10^3/uL (3.29-11.43) L 12/10/23 17:30 RBC 4.41 10^6/uL (3.85-5.65) 12/10/23 17:30 Hgb 13.00 g/dL (11.27-16.99) 12/10/23 17:30 Hct 40.3 % (36-47) 12/10/23 17:30 MCV 91.4 fl (85-98) 12/10/23 17:30 MCH 29.5 pg (27-33) 12/10/23 17:30 MCHC 32.3 g/dL (30-55) 12/10/23 17:30 RDW 12.6 % (12.1-15.1) 12/10/23 17:30 Plt Count 233 10^3/cmm (157-399) 12/10/23 17:30 MPV 10.0 fL (7.4-10.4) 12/10/23 17:30 Neut % (Auto) 35.0 % 12/10/23 17:30 Lymph % (Auto) 43.1 % 12/10/23 17:30 [place] % (Auto) 16.6 % 12/10/23 17:30 Eos % (Auto) 4.4 % 12/10/23 17:30 Baso % (Auto) 0.9 % 12/10/23 17:30 Neut # (Auto) 1.12 10^3/uL (1.8-7.7) L 12/10/23 17:30 Lymph # (Auto) 1.4 10^3/uL (0.8-4.8) 12/10/23 17:30 [place] # (Auto) 0.5 10^3/uL (0.2-0.9) 12/10/23 17:30 Eos # (Auto) 0.1 10^3/uL (0.0-0.8) 12/10/23 17:30 Baso # (Auto) 0.0 10^3/uL (0.0-0.1) 12/10/23 17:30 Nucleated RBC % (auto) 0 % 12/10/23 17:30 Nucleated RBCs # 0.0 /100WBC 12/10/23 17:30 Sodium 135 mmol/L (136-145) L 12/10/23 17:30 Potassium 4.1 mmol/L (3.5-5.1) 12/10/23 17:30 Chloride 100 mmol/L (98-107) 12/10/23 17:30 Carbon Dioxide 23 mmol/L (22-29) 12/10/23 17:30 Anion Gap 16.1 (5-19) 12/10/23 17:30 BUN 14 mg/dL (8-23) 12/10/23 17:30 Creatinine 0.7 mg/dL (0.5-0.9) 12/10/23 17:30 GFR Calculation Not Reportable 12/10/23 17:30 Glucose 93 mg/dL (65-115) 12/10/23 17:30 Calculated Osmolality 280 mOsm/kg (285-295) L 12/10/23 17:30 Calcium 8.9 mg/dL (8.5-10.5) 12/10/23 17:30 Total Bilirubin 0.2 mg/dL (0.15-1.2) 12/10/23 17:30 AST 24 U/L (0-32) 12/10/23 17:30 ALT 16 U/L (0-33) 12/10/23 17:30 Alkaline Phosphatase 76 U/L (35-105) 12/10/23 17:30 Troponin T Baseline 7 ng/L (0-10) 12/10/23 17:30 Troponin T 120 Minute 8.17 ng/L (0-10) 12/10/23 19:09 Delta Troponin T 1.17 ABS# (0-10) 12/10/23 19:09 Total Protein 6.8 g/dL (6.6-8.7) 12/10/23 17:30 Albumin 4.0 g/dL (3.5-5.2) 12/10/23 17:30 Globulin 2.8 g/dL (1.3-4.6) 12/10/23 17:30 Lipase 83 U/L (13-60) H 12/10/23 17:30 SARS-CoV-2 Ag (Rapid) Negative (Negative) 12/10/23 17:35 All radiology interpretation(s) finalized by discharge EKG Data EKG 1: I personally reviewed and interpreted this EKG as follows: EKG interpretation date: 12/10/23 EKG interpretation time: 16:17 Interpretation: nsr hr [address] or t wave abnormalities qrs 76 qtc 404 Discharge Plan Discharge Patient Disposition: Home Clinical Impression: Chest pain Qualifiers: Chest pain type: unspecified Qualified Code(s): R07.9 - Chest pain, unspecified Condition: Stable Prescriptions: No Action Gel-One 30 mg/3 mL syringe 30 mg intra-articular ONCE Qty: 3 0RF potassium citrate 99 mg capsule PO magnesium oxide 400 mg magnesium capsule 400 mg PO DAILY citalopram 10 mg tablet 10 mg PO DAILY meloxicam 15 mg Tablet 15 mg PO QAM Tylenol Ex Str Rapid Release 500 mg Tablet 500 - 1,000 mg PO Q6H PRN (Reason: Pain) levothyroxine 100 mcg tablet 100 mcg PO QAM fluticasone propionate [Flonase Allergy Relief] 50 mcg/actuation spray,suspension 2 spray INTRANASAL QAM PRN Rx Instructions: administer into each nostril metoprolol succinate 25 mg tablet extended release 24 hr 12.5 mg PO QAM Discharge Orders: Discharge ED (Routine); Ordered 12/10/23 Ordered By: Yash Leone Referrals: Ann Marie Cameron MD [Primary Care Provider] - 4-7 days Discharge Diet: Advance as tolerated Discharge Activity: Resume usual activity Patient Instructions: Chest Pain (ED) Coding Level of Care Code ED Nitrator Operator for Janett Barnes
[2023-12-10] MEDS: ondansetron 2 mg/ML SDV 2 mL 4 MG IVP (17:29)
[2023-12-10] MEDS: aspirin 81 mg Chew Tablet 324 MG PO (17:29)
[2023-12-10] MEDS: sodium chloride 0.9% 1,000 ML 999 ML IV (17:30)
[2023-12-10 17:43] LABS: Basophils % 0.9 %; Eosinophils # 0.1 10^3/uL (0.0-0.8); Eosinophils % 4.4 %; Hematocrit 40.3 % (36-47); Lymphocytes # 1.4 10^3/uL (0.8-4.8); Lymphocytes % 43.1 %; Mean Corpuscular HGB Conc 32.3 g/dL (30-55); Mean Corpuscular Hemoglobin 29.5 pg (27-33); Mean Corpuscular Volume 91.4 fl (85-98); Monocytes # 0.5 10^3/uL (0.2-0.9); Monocytes % 16.6 %; Neutrophils # 1.12 10^3/uL (1.8-7.7); Nucleated Red Blood Cells % 0 %; Platelet Count 233 10^3/cmm (157-399); Red Blood Count 4.41 10^6/uL (3.85-5.65); Red Cell Distribution Width 12.6 % (12.1-15.1)
[2023-12-10 17:57] VITALS: BP 137/80; PULSE 62; RESP 19; O2SAT 99
[2023-12-10 18:04] LABS: Troponin(5th) Baseline 7 ng/L (0-10)
[2023-12-10 18:07] LABS: Alanine Aminotransferase 16 U/L (0-33); Alkaline Phosphatase 76 U/L (35-105); Anion Gap 16.1 (5-19); Aspartate Amino Transferase 24 U/L (0-32); Blood Urea Nitrogen 14 mg/dL (8-23); Calcium 8.9 mg/dL (8.5-10.5); Carbon Dioxide 23 mmol/L (22-29); Chloride 100 mmol/L (98-107); Creatinine Clr Calc Pharmacy 60.0005; Globulin 2.8 g/dL (1.3-4.6); Glucose 93 mg/dL (65-115); Lipase 83 U/L (13-60); Osmolality Calculated 280 mOsm/kg (285-295); Potassium 4.1 mmol/L (3.5-5.1); Sodium 135 mmol/L (136-145); Total Bilirubin 0.2 mg/dL (0.15-1.2); Total Protein 6.8 g/dL (6.6-8.7)
--- NOTE | 2023-12-10 18:20 | ECG_ITS ---
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 Measurements Intervals [place] Rate: 65 P: 151 NM: 151 QRS: 188 QRSD: 84 T: 147 QT: 417 QTc: 434 Interpretive Statements SINUS RHYTHM ARM LEADS REVERSED [INVERTED P AND QRS IN I] Compared to ECG 12/10/2023 16:17:47 No significant changes Electronically Signed On 12-11-2023 10:30:42 CDT by Edwin Viveros M.D. [id number]
[2023-12-10 18:27] VITALS: BP 133/81; PULSE 60; RESP 18; O2SAT 95
[2023-12-10 18:31] LABS: SARS Covid-2 Antigen Negative (Negative)
[2023-12-10 19:47] LABS: Troponin 5 2HR 8.17 ng/L (0-10); Troponin 5 2HR Delta 1.17 ABS# (0-10)
[2023-12-10 19:57] VITALS: BP 127/79; PULSE 68; O2SAT 95
[2023-12-10 20:12] VITALS: BP 127/79; PULSE 68; RESP 18; TEMP 36.6; O2SAT 95
== END 2023-12-10 20:16 | disposition home or self-care (01) ==
PROVIDERS: Emergency Provider Emergency Medicine; PCP Family Medicine
DX: R07.9 Chest pain, unspecified (principal); Z11.52 Encounter for screening for COVID-19
CPT/HCPCS: 36415; 71045; 80053; 83690; 84484; 85025; 87426; 93005; 96361; 96374; 99285; J2405; J7030

== ENCOUNTER → 2024-01-03 10:05 | Outpatient (BNVA) | payer MEDICARE, SELFPAY | PROVIDERS: PCP Family Medicine; Visit Provider Specialist | DX: M17.0 Bilateral primary osteoarthritis of knee (principal); Z71.89 Other specified counseling | CPT/HCPCS: 20610; J1100; J2795; J3301 ==

== ENCOUNTER → 2024-04-17 10:53 | Outpatient (BNVA) | payer MEDICARE, SELFPAY | PROVIDERS: PCP Family Medicine; Visit Provider Specialist | DX: M17.0 Bilateral primary osteoarthritis of knee (principal); Z71.89 Other specified counseling | CPT/HCPCS: 20610; J1100; J2795; J3301 ==

== ENCOUNTER → 2024-07-31 09:45 | Outpatient (BNVA) | payer MEDICARE, SELFPAY | PROVIDERS: PCP Family Medicine; Visit Provider Specialist | DX: M17.0 Bilateral primary osteoarthritis of knee (principal); Z71.89 Other specified counseling | CPT/HCPCS: 20610; J1100; J2795; J3301; J9999 ==

== ENCOUNTER → 2024-11-13 09:15 | Outpatient (BNVA) | payer MEDICARE, SELFPAY | PROVIDERS: PCP Family Medicine; Visit Provider Specialist | DX: M17.0 Bilateral primary osteoarthritis of knee (principal) | CPT/HCPCS: 20610; J1100; J2795; J3301; J9999 ==

== ENCOUNTER → 2024-12-24 11:05 | Outpatient (BNVA) | payer MEDICARE, SELFPAY | PROVIDERS: PCP Family Medicine; Visit Provider Family Medicine | DX: Z11.59 Encounter for screening for other viral diseases (principal); I10 Essential (primary) hypertension; I47.10 Supraventricular tachycardia, unspecified; E78.2 Mixed hyperlipidemia; E03.9 Hypothyroidism, unspecified; M17.0 Bilateral primary osteoarthritis of knee; R41.89 Other symptoms and signs involving cognitive functions and awareness; R07.9 Chest pain, unspecified; R53.83 Other fatigue | CPT/HCPCS: 80053; 80061; 82607; 84439; 84443; 85025; 86803 ==

== ENCOUNTER → 2025-02-19 09:10 | Outpatient (BNVA) | payer MEDICARE, SELFPAY | PROVIDERS: PCP Family Medicine; Visit Provider Specialist | DX: M17.0 Bilateral primary osteoarthritis of knee (principal) | CPT/HCPCS: 20610; J1100; J2795; J3301; J9999 ==

== ENCOUNTER → 2025-02-24 15:53 | Outpatient (BNVA) | payer MEDICARE, SELFPAY | PROVIDERS: PCP Family Medicine; Visit Provider Specialist | DX: Z01.818 Encounter for other preprocedural examination (principal); M17.12 Unilateral primary osteoarthritis, left knee | CPT/HCPCS: 36415; 73560; 73565; 80053; 81001; 85025; 99214 ==

== ENCOUNTER 2025-03-01 17:02 | Outpatient (CLI) | payer MEDICARE, SELFPAY ==
--- NOTE | 2025-03-01 17:15 | CT_ITS ---
WS: [id number] CT LEFT knee, noncontrast HISTORY: PER [facility] PROTOCOL TECHNIQUE: Protocol for [facility] total knee replacement has been obtained. This includes axial imaging through the LEFT hip, LEFT knee and LEFT ankle. DLP: 1055.07 mGy.cm COMPARISON: Knee radiograph 02/24/2025 LEFT hip: No fractures. Normal position of the femoral head. No soft tissue abnormalities. RIGHT adnexal cystic mass 5.0 x 5.4 cm has been present on prior studies with mild increase in size since 2014. Similar sized as compared to the CT from 12/29/2021. LEFT knee: Mild to moderate tricompartment osteoarthritis. No fractures. No destructive bone lesions. Small suprapatellar joint effusion. Pacheco's cyst. LEFT ankle: Negative. CT/CT knee [facility] [id number] IMPRESSION: CT imaging provided for [facility] robotic total knee replacement.
== END 2025-03-01 17:03 | disposition home or self-care (01) ==
LOC: RAD 17:03
PROVIDERS: PCP Family Medicine; Visit Provider Specialist
DX: M17.12 Unilateral primary osteoarthritis, left knee (principal); N83.201 Unspecified ovarian cyst, right side; M71.22 Synovial cyst of popliteal space [Baker], left knee
CPT/HCPCS: 73700

== ENCOUNTER 2025-03-04 15:19 | Inpatient (IN) | payer MEDICARE, SELFPAY ==
[2025-03-04] VITALS (15 sets, daily range): BP systolic 88–116; BP diastolic 62–77; PULSE 56–108; RESP 15–18; TEMP 36.1–36.9; O2SAT 90–99; BMI 23.0
--- NOTE | 2025-03-04 10:51 | P.ANESASSM_ITS ---
Pre-Anesthetic Assessment Height/Weight: Height 1.7 m Weight 66.678 kg Temp Pulse Resp BP Pulse Ox O2 Del Method 97.0 F L 74 18 116/77 97 Room Air 03/04/25 10:36 03/04/25 10:36 03/04/25 10:36 03/04/25 10:36 03/04/25 10:36 03/04/25 10:36 Operation Date: 03/04/25 14:40 Proposed Procedures p Kodak Robot Total Knee Arthroplasty(Left) - Taryn Reeves MD Familial anesthetic complications: None Was Beta Corry taken within 24 hours: N/A Was Clonidine taken within 24 hours: N/A Last intake: Intake Last Liquid Date 03/04/25 Last Liquid Time 07:00 Last Solid Date 03/03/25 Last Solid Time 17:00 Social No alcohol and No tobacco Exam alert, oriented x 3, clear to auscultation bilaterally and regular rate & rhythm Airway Mallampati: Class II Dentition: full CV/HEM Arrythmia (svt) and Hypertension Metabolic Hyperlipidemia Anesthetic Plan ASA status: 2 Anesthesia: Regional (specify below) Other: Spinal Patient chose longer-acting exparel injection intraop over stronger-acting nerve block after discussion of benefits of both Risk of > 500 ml blood loss (7ml/kg in children): No Medications/Allergies Home Medications ?Medication ?Instructions ?Recorded ?Confirmed ?Last Taken ?Type acetaminophen 500 mg tablet 500 - 1,000 mg PO Q6H PRN Pain 06/22/22 03/04/25 03/03/25 History meloxicam 15 mg tablet 15 mg PO QAM #90 tabs 03/04/25 Unknown Rx donepezil 5 mg tablet 5 mg PO DAILY #90 tabs 03/0103/04/25 03/03/25 Rx sertraline 25 mg tablet 25 mg PO DAILY #90 tabs 02/0403/04/25 Unknown Rx Allergies Allergy/AdvReac Type Severity Reaction Status Date / Time Sulfa (Sulfonamide Allergy ALGY-Hives Verified 03/04/25 10:33 Antibiotics) [facility] Anesthesia Medical History Cognitive decline after multiple falls; Hypertension, essential Postmenopausal DEXA 11.3.20 at [facility]; 2.6.23 [facility] SVT (supraventricular tachycardia) saw cardio; on BB; stopping BB 10.20.24 due to orthostatic hypotension and falls Chronic depression Dementia on donepezil; ?due to concussions? Hyperlipidemia, mixed History of multiple concussions multiple falls DJD (degenerative joint disease) Hypothyroidism Surgical History Hx of colonoscopy 5.07 [place]; normal H/O tubal ligation History of cataract surgery bilateral Family History Father Stroke CAD (coronary artery disease) Lung CA Mother Hypertension Heart attack Social History Smoking and tobacco/nicotine status: never used tobacco/nicotine Alcohol intake: former Former alcohol use details: rare in past Substance/Drug Use: never Household members: spouse Marital status: Number of children: 2 Highest education level completed: Bachelor's Degree Current occupational status: retired 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
[2025-03-04] MEDS: acetaminophen 1,000 MG/100 ML PIGGYBACK 400 MG IV ×2 (10:56→18:46)
--- NOTE | 2025-03-04 11:08 | P.HPUD_ITS ---
Surgery/Procedure H&P Update DATE OF PROCEDURE: March 04, 2025 DATE H&P PERFORMED: 02/24/25 H&P UPDATE INFORMATION: I have reviewed H&P completed within last 30 days, I have examined patient prior to procedure, No changes to prior documentation, H&P is in [facility] EMR on date indicated and Risks and benefits of the procedure reviewed PREOP DIAGNOSIS: Left total knee arthroplasty PLANNED PROCEDURE: Operation Date: 03/04/25 14:40 Proposed Procedures p Kodak Robot Total Knee Arthroplasty(Left) - Taryn Reeves MD Related Problem List Diagnoses 1. Primary osteoarthritis of left knee: Qualifiers: Osteoarthritis type: primary
[2025-03-04] MEDS: ceFAZolin 2,000 mg SDV 2000 MG IVP ×2 (12:23→19:33)
[2025-03-04] MEDS: tranexamic acid 1,000 mg/10mL SDV 1000 MG IV (12:55)
[2025-03-04] MEDS: BUPivacaine liposome 13.3 mg/mL SDV 20 mL 266 MG XX (13:35)
[2025-03-04] MEDS: BUPivacaine 0.5% INJ 30 mL 20 ML XX (13:35)
[2025-03-04] MEDS: ceFAZolin 1,000 mg SDV 2000 MG IRRIGATION (13:38)
--- NOTE | 2025-03-04 14:56 | PC.NURSE ---
Abrasion developed on patient's left medial proximal ferguson from bandage scissors. Dr. Lala watters.
--- NOTE | 2025-03-04 15:13 | XR_ITS ---
WS: [id number] Exam: XR knee LT 1-2V [id number] Date/Time of Exam: 03/04/2025 3:13 PM Reason For Exam: Status post left total knee arthroplasty Total knee arthroplasty is in excellent position. Postop changes in the soft tissues. XR/XR knee LT 1-2V [id number] IMPRESSION: 1. Total knee replacement in excellent position.
--- NOTE | 2025-03-04 16:36 | PM.OP ---
Operative Report Date of procedure: March 04, 2025 Pre-op diagnosis: Severe degenerative osteoarthritis left knee Post-op diagnosis: Severe degenerative osteoarthritis left knee Post-op findings: Severe degenerative osteoarthritis with complete denudement of cartilage particularly on the lateral femoral condyle. Procedure done: Left total knee arthroplasty with Kodak guidance Implants: The Moisés total knee system with a size 4 triathlon beaded cruciate retaining femur left, a triathlon titanium tibial component size 4 beaded, a triathlon X3 tibial bearing CS insert size 4 X 9 mm and a beaded triathlon titanium asymmetric patella size 32 x 10 mm Specimens removed/disposition: Bone, disposed of Pathology: None Surgeon: Taryn Reeves MD Sales Commissions Analyst: Luz Edwards, nurse practitioner who services were required for retraction, exposure, closure, and completion of the surgical procedure Anesthesia: Spinal (ASA 2) Estimated blood loss (mL): 200 Tourniquet time (min): 0 (Not utilized) IV fluids (mL): 1,300 Urine output (mL): 400 Complications: None Findings: Severe degenerative osteoarthritis as above Condition: stable Disposition: PACU (Then return to same-day surgery for discharge to home) Brief History: This 80-year-old woman presents today for same-day left total knee arthroplasty. She has failed many conservative measures including corticosteroid injections and anti-inflammatories. The knee causes her significant issues with her activities of daily living. Once the decision was made in the office, the patient signed consents and had her questions answered. Further questions were answered on the morning of surgery. The patient understood the procedure and wished to proceed. Procedure: The patient was brought to the operating theater, and after undergoing adequate spinal anesthesia, ASA 2, the left lower extremity was prepped with DuraPrep and draped in usual fashion following placement of a tourniquet high on the leg. The leg was then draped free. Tourniquet was placed on the leg but was not elevated throughout the surgical procedure. Following exposure of the site of surgery, a surgical pause was performed. At the time of the surgical pause, we confirmed the site and side of surgery. Additionally, we confirmed the appropriate and timely administration of preoperative antibiotics, Ancef 2 g. Tranexamic acid 1 g was given preoperatively and will be given again on the floor for 1 dose postoperatively. The availability of equipment was confirmed, and the patient's identity was verbalized as well. Following the surgical pause, an incision was made centering over the patella continuing proximally and distally as necessary to allow access to the knee joint. Dissection continued through skin and soft tissues using a scalpel. Hemostasis was obtained using electrocautery. The skin incision was followed by a median parapatellar arthrotomy. The leg was extended and the patella was able to be displaced laterally. Appropriate arrays and markers were placed in appropriate position for use of the [facility]. Preoperative planning had been accomplished and was discussed in detail with the [facility] medical customer service representative. Intraoperative mapping of the femur and tibia was accomplished after the arrays were placed. Once we had accomplished the Kodak mapping, we began the appropriate resections for placement of the prosthesis. The plan was for a cruciate retaining right total knee arthroplasty. Once appropriate mapping had been accomplished retraction was established using manual retraction by the [facility] leg positioner and retractors. The knee was evaluated. There was eburnation particularly of the lateral femoral condyle.? There were large osteophytes about the trochlear groove as well as the patella and medial tibial plateau.? After balancing the knee within the Kodak program, the appropriate bone resection was accomplished. Initial resection was accomplished on the tibia followed by appropriate resections on the femur. We had performed a medial release at the beginning of the procedure to allow for placement of the array. Proximal tibia was evaluated and it was felt that appropriate size for the tibia was a size 4, and appropriate femoral size was a size 4. A trial reduction was accomplished after osteophytes had been removed, the medial and lateral meniscus were excised, and bone cuts had been accomplished as above. We had removed the anterior cruciate ligament at the beginning of the case and preserved the posterior cruciate ligament. Trial reduction was accomplished with a size 4 femoral cruciate retaining component and a size 3 tibia with a CS tibial bearing insert which was 9 mm in thickness. Initial trial reduction demonstrated that the knee had excellent stability, full extension, and full flexion. The trial components were removed after the femur had been drilled. Prior to removal of the tibial tray which had been pinned in position with appropriate rotation as determined by the Kodak plan, we broached the tibia. Subsequently, the 4 drill holes were made for the prosthetic component. All trial components had been removed, and the wound was irrigated. Plans were made for insertion of the prosthetic components. Prior to this, the patella was manually prepared. After resection of the articular surface freehand due to the thinness of the patella, it was measured and measured a 32 mm patella. We resected minimal patella, and patellar height was restored with the patellar component. Once again, the wound was irrigated. The Tritanium tibia was impacted into position.? The beaded femur was then impacted into position in a cementless fashion. The CS tibial insert was placed prior to placement of the femoral component. The patella was pressed into position with a patellar clamp.? Exparel was injected prior to placement of the components. The knee was then copiously irrigated with betadine and saline and suctioned dry. Attention was then directed to closure. Closure was accomplished with 0 Vicryl in the fascial tissues followed by a running #1 strata fix 1 from proximal to distal and 1 from distal to proximal.? This was followed by Surgiflo and vancomycin powder. Subcutaneous tissues were closed with 2-0 Monocryl interrupted, and the skin was closed in a running subcuticular fashion with 3-0 Monocryl strata fix.? A sterile dressing was then placed consisting of Dermabond Prineo, OpSite, sterile soft roll including over the foot, and an Kristopher wrap. The patient was returned the Recovery Room in a satisfactory condition. X-rays were obtained and reviewed there.? The patient will be discharged to the floor for postoperative rehabilitation and pain management. Related Problem List Diagnoses 1. Primary osteoarthritis of left knee:
[2025-03-04] MEDS: oxyCODONE 5 mg IR Tab/Cap PO ×2 (16:40→21:30)
--- NOTE | 2025-03-04 17:25 | PC.NURSE ---
Rock PT at bedside and placing CPM machine. CPM will need to come off at 1920. Message to nurse order placed.
--- NOTE | 2025-03-04 17:43 | PC.NURSE ---
Patient has been tolerating clear liquids since arrival to unit at approximately 1545. Advanced diet to full liquid diet per protocol.
[2025-03-04] MEDS: mupirocin oint 22 gm 1 APPLIC NASAL (18:46)
[2025-03-04] MEDS: sennosides-docusate Tablet 2 TAB PO (18:46)
[2025-03-04] MEDS: chlorhexidine gluconate 0.12% Btl 473 mL 30 ML MUCOUS MEM (18:46)
[2025-03-04] MEDS: tranexamic acid 1,000 MG/100 ML PREMIX 600 MG IV (19:33)
[2025-03-05] VITALS (17 sets, daily range): BP systolic 106–125; BP diastolic 62–68; PULSE 51–63; RESP 12–20; TEMP 36.3–36.7; O2SAT 85–97
[2025-03-05] MEDS: acetaminophen 1,000 MG/100 ML PIGGYBACK 400 MG IV ×2 (01:10→11:17)
[2025-03-05] MEDS: oxyCODONE 5 mg IR Tab/Cap PO ×3 (01:11→18:18)
[2025-03-05] MEDS: ceFAZolin 2,000 mg SDV 2000 MG IVP ×2 (04:05→11:19)
[2025-03-05] MEDS: multivitamin therapeutic Tablet 1 TAB PO (04:06)
[2025-03-05] MEDS: sennosides-docusate Tablet 2 TAB PO ×2 (04:06→17:20)
[2025-03-05] MEDS: mupirocin oint 22 gm 1 APPLIC NASAL ×2 (04:08→17:20)
[2025-03-05] MEDS: chlorhexidine gluconate 0.12% Btl 473 mL 30 ML MUCOUS MEM ×2 (04:09→17:21)
[2025-03-05 06:10] LABS: Hematocrit 37.4 % (36-47); Hemoglobin 12.00 g/dL (11.27-16.99); Mean Corpuscular HGB Conc 32.1 g/dL (30-55); Mean Corpuscular Hemoglobin 30.6 pg (27-33); Mean Corpuscular Volume 95.4 fl (85-98); Nucleated Red Blood Cells % 0 %; Platelet Count 185 10^3/cmm (157-399); Red Blood Count 3.92 10^6/uL (3.85-5.65); White Blood Count 12.60 10^3/uL (3.29-11.43)
[2025-03-05 06:27] LABS: Anion Gap 17.9 (5-19); Blood Urea Nitrogen 11 mg/dL (8-23); Calcium 8.4 mg/dL (8.5-10.5); Carbon Dioxide 21 mmol/L (22-29); Chloride 99 mmol/L (98-107); Glucose 82 mg/dL (65-115); Osmolality Calculated 276 mOsm/kg (285-295); Potassium 3.9 mmol/L (3.5-5.1); Sodium 134 mmol/L (136-145)
--- NOTE | 2025-03-05 09:29 | PM.DCS ---
Discharge Providers Date of Admission: 03/04/25 15:19 Date of Discharge: March 05, 2025 Attending Provider at Admission: Taryn Reeves MD Attending Provider at Discharge: Taryn Reeves MD Consults: None Primary Care Provider: Mary Pink MD Diagnoses at Discharge Discharge Diagnosis 1. Primary osteoarthritis of left knee: 2. Status post total left knee replacement not using cement: Reason for Visit Reason for Visit: M17.12 Brief History: This 80-year-old woman presents today for same-day left total knee arthroplasty. She has failed many conservative measures including corticosteroid injections and anti-inflammatories. The knee causes her significant issues with her activities of daily living. Once the decision was made in the office, the patient signed consents and had her questions answered. Further questions were answered on the morning of surgery. The patient understood the procedure and wished to proceed. Hospital Course Hospital Course Patient was admitted under observation status following same-day surgery for left total knee arthroplasty. She did well postoperatively, but on the morning following surgery, she was a little bit hypotensive. She was given a fluid bolus and this helped. She notes that she has been having some issues like this at home, and she is advised to follow-up with her primary care regarding this. Physical therapy worked with her and she did well. They feel that she is safe for discharge home as do I. Patient will be discharged home and follow-up as scheduled in the office. Physical Exam Const: COMMON NORMALS: no acute distress, average body habitus, patient oriented x3 and alert GENERAL APPEARANCE: cooperative and comfortable ORIENTATION/CONSCIOUSNESS: Yes awake HENMT: COMMON NORMALS: normocephalic and atraumatic HEAD & SCALP: normocephalic and atraumatic Eye: GENERAL EYE: appearance normal, both eyes and all related structures Chest: COMMONS NORMALS: normal inspection of the chest Resp: COMMON NORMALS: normal respiratory effort EFFORT & INSPECTION: Yes able to speak in complete sentences and Yes symmetric chest movement Extremity: LEFT LOWER EXTREMITY: Yes knee joint (Dressing is dry and intact.) Left knee: Yes inspection (No significant ecchymosis or swelling), Yes palpation (Nontender), Yes ROM (Almost able to straight leg raise) and Yes neurovascular exam (Intact distally with no evidence of DVT) Neuro: COMMON NORMALS: patient oriented x3 SENSORIUM/ORIENTATION: Yes alert Psych: COMMON NORMALS: mental status grossly normal APPEARANCE: Yes grossly normal ATTITUDE: Yes calm and Yes engaged ATTENTION/CONCENTRATION: Yes attention grossly intact Skin: COMMON NORMALS: no rashes or lesions noted GENERAL SKIN EXAM: no rashes or lesions noted Urinary Catheter Management: Villegas Latex: Cath Placed During This Visit: yes, but has since been removed by the nurse Reason for Continuing Indwelling Catheter: Decision to DC Catheter Urinary Catheter Date of Insertion: 03/04/25 Urinary Catheter Time of Insertion: 12:50 Date Urinary Catheter Removed: 03/05/25 Time Urinary Catheter Discontinued: 06:06 Discharge Data Studies Completed and Pending Completed Studies During Hospitalization Category Date Time Status XR knee LT 1-2V [id number] Routine Exams 03/04/25 15:13 Completed Radiology Impressions Knee X-Ray 03/04/25 15:13 IMPRESSION: 1. Total knee replacement in excellent position. Laboratory Results WBC 12.60 10^3/uL (3.29-11.43) H 03/05/25 05:50 RBC 3.92 10^6/uL (3.85-5.65) 03/05/25 05:50 Hgb 12.00 g/dL (11.27-16.99) 03/05/25 05:50 Hct 37.4 % (36-47) 03/05/25 05:50 MCV 95.4 fl (85-98) 03/05/25 05:50 MCH 30.6 pg (27-33) 03/05/25 05:50 MCHC 32.1 g/dL (30-55) 03/05/25 05:50 RDW 15.0 % (12.1-15.1) 03/05/25 05:50 Plt Count 185 10^3/cmm (157-399) 03/05/25 05:50 MPV 10.1 fL (7.4-10.4) 03/05/25 05:50 Neut % (Auto) 81.6 % 03/05/25 05:50 Lymph % (Auto) 11.1 % 03/05/25 05:50 [place] % (Auto) 6.3 % 03/05/25 05:50 Eos % (Auto) 0.2 % 03/05/25 05:50 Baso % (Auto) 0.4 % 03/05/25 05:50 Neut # (Auto) 10.28 10^3/uL (1.8-7.7) H 03/05/25 05:50 Lymph # (Auto) 1.4 10^3/uL (0.8-4.8) 03/05/25 05:50 [place] # (Auto) 0.8 10^3/uL (0.2-0.9) 03/05/25 05:50 Eos # (Auto) 0.0 10^3/uL (0.0-0.8) 03/05/25 05:50 Baso # (Auto) 0.1 10^3/uL (0.0-0.1) 03/05/25 05:50 Nucleated RBC % (auto) 0 % 03/05/25 05:50 Nucleated RBCs # 0.0 /100WBC 03/05/25 05:50 Sodium 134 mmol/L (136-145) L 03/05/25 05:50 Potassium 3.9 mmol/L (3.5-5.1) 03/05/25 05:50 Chloride 99 mmol/L (98-107) 03/05/25 05:50 Carbon Dioxide 21 mmol/L (22-29) L 03/05/25 05:50 Anion Gap 17.9 (5-19) 03/05/25 05:50 BUN 11 mg/dL (8-23) 03/05/25 05:50 Creatinine 0.9 mg/dL (0.5-0.9) 03/05/25 05:50 GFR Calculation Not Reportable 03/05/25 05:50 Glucose 82 mg/dL (65-115) 03/05/25 05:50 Calculated Osmolality 276 mOsm/kg (285-295) L 03/05/25 05:50 Calcium 8.4 mg/dL (8.5-10.5) L 03/05/25 05:50 Vitals Last Vital Signs Temp 98.1 F 03/05/25 07:55 Pulse 62 03/05/25 07:55 Resp 16 03/05/25 08:10 BP 106/68 03/05/25 07:55 Pulse Ox 93 03/05/25 07:55 O2 Del Method Room Air 03/05/25 07:55 Discharge Plan Discharge Patient Disposition: Home Health Service Condition: Stable Prescriptions: New acetaminophen 500 mg Tablet 1,000 mg PO Q8H 15 Days Qty: 90 0RF aspirin 325 mg Tablet,Delayed Release (Dr/Ec) 325 mg PO DAILY 30 Days Qty: 30 0RF oxycodone 5 mg Tablet 5 mg PO Q4H PRN (Reason: Moderate To Severe Pain) 7 Days Qty: 40 0RF multivitamin with folic acid [Thera] 400 mcg Tablet 1 tab PO DAILY 30 Days Qty: 0 0RF Continued meloxicam 15 mg tablet 15 mg PO QAM Qty: 90 3RF donepezil 5 mg tablet 5 mg PO DAILY Qty: 90 3RF sertraline 25 mg tablet 25 mg PO DAILY Qty: 90 1RF Held acetaminophen 500 mg Tablet 500 - 1,000 mg PO Q6H PRN (Reason: Pain) Hold Instructions: Until scheduled Tylenol is completed Referrals: Taryn Reeves MD [Physician, Orthopedics] - 03/17/25 11:15 am Discharge Diet: Advance as tolerated and Usual diet Discharge Activity: Increase activity as tolerated, Limit activity as instructed, Use walker/crutches as instructed and As per PT/OT instructions Patient Instructions: Acetaminophen (By mouth), Aspirin (By mouth) (Lazaro Extra Strength, Lazaro Aspirin Children's,..., Multivitamins with Minerals (By mouth), Oxycodone, Rapid Release (By mouth) (ETH-Oxydose, Oxy IR,..., Acute Wound Care (DC), Precautions after Total Joint Replacement Surgery (DC), Total Knee Replacement (DC), Opioid Safety, Post Anesthesia Care, Patient Portal & Martina Instructions Activity Restrictions/Additional Instructions: Range of motion, strengthening, and gait training per physical therapy. Elevate your leg. You may shower, but do not soak your knee in water. Leave your dressing in place until it comes off on its own or begins to leak at which time you may remove it. Discharge Attestations Time Spent in Discharge Care*: greater than 30 min Specific Discharge Activities: educating patient, documenting/other paperwork and evaluating patient/reviewing data Quality Metrics Clinical Quality Measures [ No reported AMI, CVA or VTE this stay] Coding Level of Care Code Acute Code for Chg Fwd Diagnoses Primary osteoarthritis of left knee M17.12 Osteoarthritis type: primary Status post total left knee replacement not using cement Z96.652
[2025-03-05] MEDS: ondansetron 2 mg/ML SDV 2 mL 4 MG IVP (11:47)
--- NOTE | 2025-03-05 14:36 | USR_ITS ---
PROCEDURE INFORMATION: Exam: US Duplex Bilateral Extracranial Arteries; Complete; Carotid Arteries Exam date and time: 03/05/2025 4:46 PM Age: 80 years old Clinical indication: Syncope and collapse TECHNIQUE: Imaging protocol: Real-time duplex ultrasound scan of the bilateral extracranial arteries combining almeida scale, color Doppler and spectral waveform analysis with image documentation. Complete exam. Exam focused on the carotid arteries. COMPARISON: CT head wo con* [id number] 12/29/2021 4:28 PM FINDINGS: Right common carotid artery: Unremarkable. No occlusion or stenosis. Waveforms are normal. Right internal carotid artery: Unremarkable. No occlusion or stenosis. Waveforms are normal. Right ICA/CCA ratio: Within normal limits. Right external carotid artery: No stenosis in the origin. Right vertebral artery: Unremarkable. Antegrade flow. Left common carotid artery: Unremarkable. No occlusion or stenosis. Waveforms are normal. Left internal carotid artery: Unremarkable. No occlusion or stenosis. Waveforms are normal. Left ICA/CCA ratio: Within normal limits. Left external carotid artery: No stenosis in the origin. Left vertebral artery: Unremarkable. Antegrade flow. US/CV carotid duplex BI* [id number] IMPRESSION: No carotid arterial stenosis. REFERENCES: SRU CRITERIA. The degree of internal carotid artery stenosis is based on criteria defined by the Society of Radiologists in Ultrasound (SRU). Normal is no stenosis. Mild is less than 50% stenosis. Moderate is 50-69% stenosis. Severe is greater than 69% stenosis to near occlusion. Near occlusion is a markedly narrowed lumen. Total occlusion is no detectable patent lumen. Becca Streeter, et al. Carotid Artery Stenosis: Almeida-Scale and Doppler US Diagnosis-Society of Radiologists in Ultrasound Consensus Conference. Radiology 2003; 229:340-346.
--- NOTE | 2025-03-05 14:36 | XR_ITS ---
WS: [id number] Exam: XR chest 1V portable [id number] Date/Time of Exam: 03/05/2025 2:36 PM Reason For Exam: syncope Comparison 12/10/2023. Lungs are fully expanded and clear. Normal cardiomediastinal silhouette. No pleural effusions. Regional bony structures are intact. XR/XR chest 1V portable [id number] IMPRESSION: 1. No acute cardiopulmonary finding.
--- NOTE | 2025-03-05 14:36 | USCV_ITS ---
Cassy Rockwell Age: 80 Gender: F : 1945 Exam Date: 03/05/2025 18:10 Ordering Phys: Abram Lomeli MD Technologist: Max Sidhu Exam Location: [facility] [place] Indication: syncope BP: 107 / 68 HR: 56 Rhythm: Sinus Technical Quality: Adequate MEASUREMENTS (Male / Female) Normal Values 2D ECHO LV Diastolic Diameter PLAX 3.9 cm 4.2 - 5.9 / 3.9 - 5.3 cm IVS Diastolic Thickness 0.9 cm 0.6 - 1.0 / 0.6 - 0.9 cm IVS Systolic Thickness 1.0 cm LVPW Diastolic Thickness 0.7 cm 0.6 - 1.0 / 0.6 - 0.9 cm LVPW Systolic Thickness 1.4 cm LVOT Diameter 2.0 cm LV Ejection Fraction 2D Teich 55.2 % LV Ejection Fraction MOD 4C 58.9 % LV Ejection Fraction MOD 2C 58.6 % LV Ejection Fraction 2C AL 58.1 % LA Diameter 3.1 cm RA Systolic Volume 4C AL 12.9 ml RA Systolic Volume 4C MOD 12.8 ml LA Sys Volume AL 23.9 cm cubed LA Sys Volume Index AL 12.0 cm cubed/m squared Aorta at Sinotubular Diameter 2.1 cm M-MODE LA Ao Ratio MM 1.2 AV Cusp Separation MM 1.7 cm DOPPLER AV Peak Velocity 118.3 cm/s LVOT Peak Velocity 85.0 cm/s AV Area Cont Eq vti 2.3 cm squared AV Area Cont Eq pk 2.3 cm squared MV Peak Velocity 68.0 cm/s MV Area PHT 3.6 cm squared Mitral E to A Ratio 1.2 TV Peak Velocity 238.7 cm/s TR Peak Velocity 258.0 cm/s TR Peak Gradient 26.6 mmHg TR Mean Velocity 208.0 cm/s TR Mean Gradient 18.0 mmHg TR Velocity Time Integral 83.2 cm PV Peak Velocity 71.0 cm/s RV Ejection Time 0.3 s FINDINGS Left Ventricle Normal left ventricular size and wall thickness. There is severe hypokinesis of the mid and basal inferolateral wall segments with overall normal ejection fraction. Left ventricular ejection fraction is 55%. Normal left ventricular diastolic function. Right Ventricle Normal right ventricular size and systolic function. Right Atrium Normal right atrial size. Left Atrium Normal left atrial size. IA Septum Normal appearance of the interatrial septum. Mitral Valve Mild thickening of the mitral valve leaflets. No mitral valve stenosis. Mild mitral valve regurgitation. Aortic Valve Normal aortic valve structure. No aortic valve stenosis or regurgitation. Tricuspid Valve Normal tricuspid valve structure. Trace tricuspid valve regurgitation. Normal pulmonary pressure. Pulmonic Valve Normal pulmonic valve structure. No pulmonic valve stenosis or regurgitation. Pericardium No pericardial effusion. Aorta Normal diameter of the aortic root and ascending thoracic aorta. IVC IVC not well-visualized. CONCLUSIONS Normal left ventricular size and ejection fraction of 55%. There is segmental wall motion abnormality with severe hypokinesis of the mid and the basal inferolateral wall segments. Normal right ventricular size and systolic function. Mild mitral valve regurgitation Evelio Cheema MD, FACC (Electronically Signed) Final Date: 05 March 2025 19:53 S
--- NOTE | 2025-03-05 15:00 | P.CONIM_ITS ---
Providers/Reason For Consult 2 Consulting Physician/Specialty*: Orthopedic service Reason for Consult*: Syncope Attending Physician: Taryn Reeves MD Primary Care Provider: Mary Pink MD History of Present Illness History of Present Illness Cassy Rockwell is a 80 year old female with a past medical history of SVT, beta-blockers have been stopped due to orthostatic hypotension and falls, dementia on Aricept, history of falls with concussion, hypertension, degenerative joint disease, who presents [facility] for left knee replacement, hospitalist team was consulted for syncope. Currently patient is alert oriented x 3, following commands, denies any lightheadedness, dizziness, no nausea, no vomiting, blood pressure 106/64, pulse 55, respiratory rate 16, temp pressure 97.3 she is 92% room air, has no complaints. She does report a history of syncope especially when standing up, reports recurrent falls associate with concussion associated with passing out when she changes position. Denies any vertigo, no tinnitus is no headache, blurry vision, no facial droop, slurring words, no focal weakness, no focal paresthesias, no seizure-like episodes Medications/Allergies Home Medications ?Medication ?Instructions ?Recorded ?Confirmed ?Last Taken ?Type acetaminophen 500 mg tablet 500 - 1,000 mg PO Q6H PRN Pain 06/22/22 03/04/25 03/03/25 History Held on 03/05/25. Instructions: Until scheduled Tylenol is completed meloxicam 15 mg tablet 15 mg PO QAM #90 tabs 03/04/25 Unknown Rx donepezil 5 mg tablet 5 mg PO DAILY #90 tabs 03/0103/04/25 03/03/25 Rx sertraline 25 mg tablet 25 mg PO DAILY #90 tabs 02/0403/04/25 Unknown Rx acetaminophen 500 mg tablet 1,000 mg (2 x 500 mg) PO Q 8H 15 03/05/25 Unknown Rx days #90 tabs aspirin 325 mg tablet,delayed 325 mg PO DAILY 30 days #30 tabs 03/05/25 Unknown Rx release multivitamin with folic acid 400 1 tab PO DAILY 30 day s #0 tabs 03/05/25 Unknown Rx mcg tablet (Thera) oxycodone 5 mg tablet 5 mg PO Q4H PRN Moderate To Severe 03/05/25 Unknown Rx Pain 7 days #40 tabs Allergies Allergy/AdvReac Type Severity Reaction Status Date / Time Sulfa (Sulfonamide Allergy ALGY-Hives Verified 03/04/25 10:33 Antibiotics) Current Medications Generic Name Dose Route Start Last Admin Trade Name Freq PRN Reason Stop Dose Admin Aspirin 325 mg 03/05/25 05:00 03/05/25 04:06 Aspirin 325 Mg Ec Tablet PO 325 mg DAILY CONCHA Administration Calcium Carbonate 1,000 mg 03/04/25 17:00 03/05/25 04:08 Calcium Carbonate 500 Mg Chew Tablet PO Not Given BID CONCHA Chlorhexidine Gluconate 30 ml 03/04/25 17:00 03/05/25 11:13 Chlorhexidine Gluconate 0.12% Btl 473 Ml MUCOUS MEM Not Given QID CONCHA Donepezil HCl 5 mg 03/05/25 05:00 03/05/25 04:07 Donepezil 5 Mg Tablet PO 5 mg DAILY CONCHA Administration Multivitamins Therapeutic 1 tab 03/05/25 05:00 03/05/25 04:06 Multivitamin Therapeutic Tablet PO 1 tab DAILY CONCHA Administration Mupirocin 1 applic 03/04/25 17:00 03/05/25 04:08 Mupirocin Oint 22 Gm NASAL 03/09/25 16:59 1 applic BID CONCHA Administration Protocol Ondansetron HCl 4 mg 03/04/25 16:49 03/05/25 11:47 Ondansetron 2 Mg/Ml Sdv 2 Ml IVP 4 mg Q6H PRN Administration NAUSEA AND VOMITING Oxycodone HCl 5 - 10 mg 03/04/25 20:00 03/05/25 08:10 Oxycodone 5 Mg Ir Tab/Cap PO 10 mg Q4H PRN Administration MODERATE TO SEVERE PAIN Polysaccharide Iron Complex 150 mg 03/04/25 18:00 03/05/25 08:08 Iron Polysaccharide Complex 150 Mg Capsule PO 150 mg BIDWM CONCHA Administration Senna/Docusate Sodium 2 tab 03/04/25 17:00 03/05/25 04:06 Sennosides-Docusate Tablet PO 2 tab BID CONCHA Administration Sertraline HCl 25 mg 03/05/25 05:00 03/05/25 04:07 Sertraline 50 Mg Tablet PO 25 mg DAILY CONCHA Administration Vitamin D 1,000 unit 03/05/25 05:00 03/05/25 04:08 Cholecalciferol (Vitamin D3) 1,000 Unit Tablet PO Not Given DAILY CONCHA PFSH Acute 2 PFSH: Medical History Cognitive decline after multiple falls; Hypertension, essential Postmenopausal DEXA 11.3.20 at [facility]; 2.6.23 O[facility] SVT (supraventricular tachycardia) saw cardio; on BB; stopping BB 10.20.24 due to orthostatic hypotension and falls Chronic depression Dementia on donepezil; ?due to concussions? Hyperlipidemia, mixed History of multiple concussions multiple falls DJD (degenerative joint disease) Hypothyroidism Surgical History Hx of colonoscopy 09.25.06 [facility]; normal H/O tubal ligation History of cataract surgery bilateral Family History Father Stroke CAD (coronary artery disease) Lung CA Mother Hypertension Heart attack Social History Smoking and tobacco/nicotine status: never used tobacco/nicotine Alcohol intake: former Former alcohol use details: rare in past Substance/Drug Use: never Household members: spouse Marital status: Number of children: 2 Highest education level completed: Bachelor's Degree Current occupational status: retired 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 Vitals/I&O/Wt Last Vital Signs Temp 97.3 F L 03/05/25 11:39 Pulse 55 L 03/05/25 11:39 Resp 17 03/05/25 11:39 BP 106/64 03/05/25 11:39 Pulse Ox 92 03/05/25 11:39 O2 Del Method Room Air 03/05/25 11:39 03/05/25 03/05/25 03/05/25 06:59 14:59 22:59 Intake Total 100 / 1900 660 / 660 Output Total 450 / 1850 Balance -350 / 50 660 / 660 Weight last 48 hrs Weight 81.692 kg Weight 66.678 kg Weight 66.678 kg Physical Exam 2 Const: COMMON NORMALS: no acute distress and patient oriented x3 HENMT: COMMON NORMALS: normocephalic HEAD & SCALP: normocephalic Resp: COMMON NORMALS: normal respiratory effort, No retractions, No use of accessory muscles and clear to auscultation bilaterally AUSCULTATION: clear to auscultation bilaterally Cardio: COMMON NORMALS: regular rate, regular rhythm, S1 normal heart sound present and S2 normal heart sound present RATE: regular rate RHYTHM: r egular rhythm HEART SOUNDS: S1 normal heart sound present and S2 normal heart sound present GI: COMMON NORMALS: Normal to inspection, nondistended, normoactive bowel sounds present and non-tender Extremity: COMMON NORMALS: no calf tenderness and no pedal edema Neuro: COMMON NORMALS: patient oriented x3, CN's II-XII intact bilaterally, moves all extremities and no focal motor deficits Psych: COMMON NORMALS: mental status grossly normal Urinary Catheter Management: Villegas Latex: Cath Placed During This Visit: yes, but has since been removed by the nurse Reason for Continuing Indwelling Catheter: Decision to DC Catheter Urinary Catheter Date of Insertion: 03/04/25 Urinary Catheter Time of Insertion: 12:50 Date Urinary Catheter Removed: 03/05/25 Time Urinary Catheter Discontinued: 06:06 Data 03/05/25 05:50 03/05/25 05:50 A&P Assessment and plan 1. Syncope: Plan: Syncope - Will check orthostatic vitals based on clinical progress - Serial EKGs, troponins, telemetry monitoring - TSH, cortisol, CBC, CMP -UA, chest x-ray, lactic acid - Carotid artery ultrasound - Cardiac echo - Full code - Aspirin for DVT prophylaxis PDMP PDMP Reviewed: Not Reviewed Consult Attestations 2 Medical Necessity Statement: Patient requires hospitalization, for syncope Coding Level of Care Code Acute Code for Chg Fwd Diagnoses Syncope R55
--- NOTE | 2025-03-05 15:02 | ECG_ITS ---
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1945 Requested By: Abram Lomeli Order Number: [id number] Reading MD: KARINE ALEX Measurements Intervals [place] Rate: 52 P: 57 SC: 174 QRS: 24 QRSD: 94 T: 117 QT: 445 QTc: 415 Interpretive Statements SINUS BRADYCARDIA MODERATE T-WAVE ABNORMALITY, CONSIDER LATERAL ISCHEMIA [-0.1+ mV T-WAVE IN I/aVL/V5/V6] Compared to ECG 12/10/2023 18:23:32 T-wave abnormality now present Possible ischemia now present Sinus rhythm no longer present Electronically Signed On 03-06-2025 21:19:58 CDT by KARINE ALEX [email or web address]
[2025-03-05 15:06] LABS: Hematocrit 30.7 % (36-47); Hemoglobin 9.80 g/dL (11.27-16.99); Mean Corpuscular HGB Conc 31.9 g/dL (30-55); Mean Corpuscular Hemoglobin 30.3 pg (27-33); Mean Corpuscular Volume 95.0 fl (85-98); Nucleated Red Blood Cells % 0 %; Platelet Count 155 10^3/cmm (157-399); Red Blood Count 3.23 10^6/uL (3.85-5.65); White Blood Count 10.87 10^3/uL (3.29-11.43)
[2025-03-05 15:24] LABS: Troponin(5th) Baseline 9 ng/L (0-10)
[2025-03-05 15:25] LABS: Lactic Sepsis W/Reflex 1.2 mmol/L (0.5-2.2)
[2025-03-05 15:40] LABS: Alanine Aminotransferase 8 U/L (0-33); Albumin Level 3.5 g/dL (3.5-5.2); Alkaline Phosphatase 55 U/L (35-105); Anion Gap 17.8 (5-19); Aspartate Amino Transferase 19 U/L (0-32); Blood Urea Nitrogen 10 mg/dL (8-23); Calcium 7.9 mg/dL (8.5-10.5); Carbon Dioxide 19 mmol/L (22-29); Chloride 94 mmol/L (98-107); Free T4 Free Thyroxine 0.10 ng/dL (0.82-1.77); Globulin 2.0 g/dL (1.3-4.6); Glucose 106 mg/dL (65-115); NT Pro B Type Natriuretic Pept 66 pg/mL (0-450); Osmolality Calculated 263 mOsm/kg (285-295); Potassium 3.8 mmol/L (3.5-5.1); Sodium 127 mmol/L (136-145); Total Protein 5.5 g/dL (6.6-8.7)
[2025-03-05 16:00] LABS: Thyroid Stimulating Hormone 96.37 uIU/mL (0.27-4.20)
[2025-03-05] MEDS: hydrocortisone 100 mg/2 mL SDV IVP (17:40)
[2025-03-05 18:05] LABS: Troponin 5 2HR 11.21 ng/L (0-10); Troponin 5 2HR Delta 2.21 ABS# (0-10)
--- NOTE | 2025-03-05 19:40 | PC.NURSE ---
Addendum entered by Naina Hillman RN 03/06/25 04:29: Daughter took glasses and phone home. Clothes still at bedside. Original Note: Patient arrived to unit at 1855. Belongings have been sent home with patient's daughter.
--- NOTE | 2025-03-05 20:17 | ECG_ITS ---
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
[2025-03-05 21:14] LABS: Troponin 5 6HR 9.81 ng/L (0-10); Troponin 5 6HR Delta 0.81 ng/L (0-12)
[2025-03-05 21:17] LABS: Blood Urea Nitrogen 10 mg/dL (8-23); Calcium 8.4 mg/dL (8.5-10.5); Carbon Dioxide 20 mmol/L (22-29); Chloride 93 mmol/L (98-107); Glucose 115 mg/dL (65-115); Osmolality Calculated 264 mOsm/kg (285-295); Sodium 127 mmol/L (136-145)
[2025-03-05 21:19] LABS: Anion Gap 18.3 (5-19); Potassium 4.3 mmol/L (3.5-5.1)
[2025-03-05 23:36] LABS: Glucose Urine UA Negative (Normal); Nitrate Urine Negative (Negative); Specific Gravity, Urine 1.014 (1.005-1.030)
[2025-03-05 23:41] LABS: Add Urine Microscopic? YES
[2025-03-06] VITALS (26 sets, daily range): BP systolic 97–131; BP diastolic 60–80; PULSE 55–146; RESP 7–28; TEMP 36.4–37.1; O2SAT 88–95
[2025-03-06] MEDS: sennosides-docusate Tablet 2 TAB PO ×2 (04:24→17:24)
[2025-03-06] MEDS: multivitamin therapeutic Tablet 1 TAB PO (04:24)
[2025-03-06] MEDS: mupirocin oint 22 gm 1 APPLIC NASAL ×2 (04:30→17:28)
[2025-03-06] MEDS: chlorhexidine gluconate 0.12% Btl 473 mL 30 ML MUCOUS MEM ×4 (04:31→22:52)
[2025-03-06 04:57] LABS: Hematocrit 32.9 % (36-47); Hemoglobin 10.40 g/dL (11.27-16.99); Mean Corpuscular HGB Conc 31.6 g/dL (30-55); Mean Corpuscular Hemoglobin 29.5 pg (27-33); Mean Corpuscular Volume 93.5 fl (85-98); Nucleated Red Blood Cells % 0 %; Platelet Count 168 10^3/cmm (157-399); Red Blood Count 3.52 10^6/uL (3.85-5.65); White Blood Count 11.90 10^3/uL (3.29-11.43)
[2025-03-06 05:25] LABS: Alanine Aminotransferase 6 U/L (0-33); Albumin Level 3.8 g/dL (3.5-5.2); Alkaline Phosphatase 62 U/L (35-105); Anion Gap 12.1 (5-19); Aspartate Amino Transferase 19 U/L (0-32); Blood Urea Nitrogen 8 mg/dL (8-23); Calcium 8.9 mg/dL (8.5-10.5); Carbon Dioxide 22 mmol/L (22-29); Chloride 101 mmol/L (98-107); Free T4 Free Thyroxine 0.27 ng/dL (0.82-1.77); Globulin 1.9 g/dL (1.3-4.6); Glucose 124 mg/dL (65-115); Osmolality Calculated 272 mOsm/kg (285-295); Potassium 4.1 mmol/L (3.5-5.1); Sodium 131 mmol/L (136-145); Thyroid Stimulating Hormone 68.12 uIU/mL (0.27-4.20); Total Protein 5.7 g/dL (6.6-8.7)
--- NOTE | 2025-03-06 10:45 | PC.NURSE ---
assisted up to bedside commode voided no difficulty , has some discomfort left knee dressing intact ,does not want narcotic called new order noted family here some confusion noted
[2025-03-06] MEDS: albumin 25 G/100 ML BAG 60 G IV ×2 (13:48→20:55)
--- NOTE | 2025-03-06 13:53 | P.PN_ITS ---
Subjective 2 Subjective: Patient was seen this day, currently alert oriented x 3, following all commands, denies any fevers, chills, no cough, no lightheadedness, dizziness, no chest pain, discussed her hypothyroidism and my concerns for myxedema, playing a role in her bradycardia and her hypotension, however I do still suspect that she does have some degree of orthostatic hypotension that is unrelated, as she has had history of dizziness and syncope in the past, did also discuss her echocardiogram findings we will consult cardiology but she denies any chest pain, no palpitations, no shortness of breath Vitals/I&O/Wt Last Vital Signs Temp 97.5 F L 03/06/25 04:47 Pulse 80 03/06/25 07:47 Resp 15 03/06/25 05:30 BP 97/74 03/06/25 07:47 Pulse Ox 91 03/06/25 05:00 O2 Del Method Room Air 03/05/25 20:26 03/05/25 03/06/25 03/06/25 22:59 06:59 14:59 Intake Total 200 / 200 Output Total 450 / 450 350 / 350 Balance -450 / 210 -150 / -150 Weight last 48 hrs Weight 75.795 kg Weight 81.692 kg Weight 66.678 kg Physical Exam 2 Const: COMMON NORMALS: no acute distress and patient oriented x3 Resp: COMMON NORMALS: normal respiratory effort, No retractions, No use of accessory muscles and clear to auscultation bilaterally AUSCULTATION: clear to auscultation bilaterally Cardio: COMMON NORMALS: regular rate, regular rhythm, S1 normal heart sound present and S2 normal heart sound present RATE: regular rate RHYTHM: r egular rhythm HEART SOUNDS: S1 normal heart sound present and S2 normal heart sound present GI: COMMON NORMALS: Normal to inspection, nondistended, normoactive bowel sounds present and non-tender Extremity: COMMON NORMALS: no pedal edema Neuro: COMMON NORMALS: patient oriented x3 Psych: COMMON NORMALS: mental status grossly normal Urinary Catheter Management: Villegas Latex: Cath Placed During This Visit: yes, but has since been removed by the nurse Reason for Continuing Indwelling Catheter: Decision to DC Catheter Urinary Catheter Date of Insertion: 03/04/25 Urinary Catheter Time of Insertion: 12:50 Date Urinary Catheter Removed: 03/05/25 Time Urinary Catheter Discontinued: 06:06 Data 03/06/25 04:22 03/06/25 04:22 A&P Assessment and plan 1. Syncope: 2. Myxedema coma: Plan: Syncope - Will check orthostatic vitals based on clinical progress - Serial EKGs, troponins, telemetry monitoring - I suspect some degree of her syncope is orthostatic hypotension -As she has a history of syncope, dizziness, since 2022 - Has received fluids, albumin -Start midodrine 5 mg every 6 hours - Carotid artery ultrasound within normal limits - Full code - Aspirin for DVT prophylaxis Myxedema coma - Patient's blood pressures remain soft, MAP is around 65, heart rates 40s to 50s, patient does not feel well, she feels sick, lightheaded - Patient's TSH is 68.2, free T4 0.27, free T3 0.4 - Concerns for myxedema coma - History of SVT - Status post 100 mcg IV levothyroxine, liothyronine, 100 mg IV hydrocortisone -Decreased to 75 mcg IV levothyroxine, 5 mcg Cytomel every 12 hours - Will moved to CSU - Monitor hemodynamics closely, monitor TSH, T3 closely Cardiac echo CONCLUSIONS Normal left ventricular size and ejection fraction of 55%. There is segmental wall motion abnormality with severe hypokinesis of the mid and the basal inferolateral wall segments. Normal right ventricular size and systolic function. 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
--- NOTE | 2025-03-06 14:33 | PM.CONSULT ---
Providers/Reason For Consult Consulting Physician/Specialty*: Evelio Cheema MD Reason for Consult*: Abnormal echocardiogram Attending Physician: Abram Lomeli MD Primary Care Provider: Mary Pink MD History of Present Illness History of Present Illness Cassy Rockwell is a 80 year old female with a history of hypothyroidism, orthostatic hypotension episodes leading to multiple falls and concussions, dementia and on donepezil admitted for knee replacement. Cardiology has been asked to consult due to a wall motion abnormality found on echocardiogram. The patient is very pleasant but has reduced cognitive capacity due to her dementia. She does not recall ever having any heart attack in the past however. She denies chest pain, shortness of breath or palpitations. She does have a history of short runs of SVT on a heart monitor in September 2022. She had been on low-dose beta-jaime but this had to be stopped due to orthostatic hypotension and syncope. Today while working with physical therapy patient's blood pressure dropped from 100/63 lying to 66/39 standing with associated near syncope. There was no arrhythmia at this time. 03/05/25 echo: Normal left ventricular size and ejection fraction of 55%. There is segmental wall motion abnormality with severe hypokinesis of the mid and the basal inferolateral wall segments. Normal right ventricular size and systolic function. Mild mitral valve regurgitation Medications/Allergies Home Medications ?Medication ?Instructions ?Recorded ?Confirmed ?Last Taken ?Type acetaminophen 500 mg tablet 500 - 1,000 mg PO Q6H PRN Pain 06/22/22 03/04/25 03/03/25 History Held on 03/05/25. Instructions: Until scheduled Tylenol is completed meloxicam 15 mg tablet 15 mg PO QAM #90 tabs 09/01/24 03/04/25 Unknown Rx donepezil 5 mg tablet 5 mg PO DAILY #90 tabs 03/01/25 03/04/25 03/03/25 Rx sertraline 25 mg tablet 25 mg PO DAILY #90 tabs 03/01/25 03/04/25 Unknown Rx acetaminophen 500 mg tablet 1,000 mg (2 x 500 mg) PO Q8H 15 03/05/25 Unknown Rx days #90 tabs aspirin 325 mg tablet,delayed 325 mg PO DAILY 30 days #30 tabs 03/05/25 Unknown Rx release multivitamin with folic acid 400 1 tab PO DAILY 30 days #0 tabs 03/05/25 Unknown Rx mcg tablet (Thera) oxycodone 5 mg tablet 5 mg PO Q4H PRN Moderate To Severe 03/05/25 Unknown Rx Pain 7 days #40 tabs Allergies Allergy/AdvReac Type Severity Reaction Status Date / Time Sulfa (Sulfonamide Allergy ALGY-Hives Verified 03/04/25 10:33 Antibiotics) Current Medications Generic Name Dose Route Start Last Admin Trade Name Freq PRN Reason Stop Dose Admin Aspirin 325 mg 03/05/25 05:00 03/06/25 04:24 Aspirin 325 Mg Ec Tablet PO 325 mg DAILY CONCHA Administration Calcium Carbonate 1,000 mg 03/04/25 17:00 03/06/25 04:24 Calcium Carbonate 500 Mg Chew Tablet PO 1,000 mg BID CONCHA Administration Chlorhexidine Gluconate 30 ml 03/04/25 17:00 03/06/25 11:57 Chlorhexidine Gluconate 0.12% Btl 473 Ml MUCOUS MEM 30 ml QID CONCHA Administration Donepezil HCl 5 mg 03/05/25 05:00 03/06/25 04:24 Donepezil 5 Mg Tablet PO 5 mg DAILY CONCHA Administration Albumin Human 25 g in 100 mls @ 60 mls/hr 03/06/25 13:45 03/06/25 13:48 Albumin IV 60 mls/hr Q8H CONCHA Administration Midodrine 5 mg 03/06/25 13:45 03/06/25 13:48 Midodrine 5 Mg Tablet PO 5 mg Q6H CONCHA Administration Multivitamins Therapeutic 1 tab 03/05/25 05:00 03/06/25 04:24 Multivitamin Therapeutic Tablet PO 1 tab DAILY CONCHA Administration Mupirocin 1 applic 03/04/25 17:00 03/06/25 04:30 Mupirocin Oint 22 Gm NASAL 03/09/25 16:59 1 applic BID CONCHA Administration Protocol Ondansetron HCl 4 mg 03/04/25 16:49 03/05/25 11:47 Ondansetron 2 Mg/Ml Sdv 2 Ml IVP 4 mg Q6H PRN Administration NAUSEA AND VOMITING Polysaccharide Iron Complex 150 mg 03/04/25 18:00 03/06/25 08:27 Iron Polysaccharide Complex 150 Mg Capsule PO 150 mg BIDWM CONCHA Administration Senna/Docusate Sodium 2 tab 03/04/25 17:00 03/06/25 04:24 Sennosides-Docusate Tablet PO 2 tab BID CONCHA Administration Sertraline HCl 25 mg 03/05/25 05:00 03/06/25 04:24 Sertraline 50 Mg Tablet PO 25 mg DAILY CONCHA Administration Tramadol HCl 50 mg 03/06/25 10:05 03/06/25 10:16 Tramadol 50 Mg Tablet PO 50 mg Q6H PRN Administration MODERATE PAIN Vitamin D 1,000 unit 03/05/25 05:00 03/06/25 04:24 Cholecalciferol (Vitamin D3) 1,000 Unit Tablet PO 1,000 unit DAILY CONCHA Administration PFSH Acute PFSH: Medical History (Updated 03/06/25 @ 14:45 by Evelio Cheema MD) Cognitive decline after multiple falls; Hypertension, essential Postmenopausal DEXA 11.3.20 at [facility]; 2.6.23 [facility] SVT (supraventricular tachycardia) saw cardio; on BB; stopping BB 6 due to orthostatic hypotension and falls Chronic depression Dementia on donepezil; ?due to concussions? Hyperlipidemia, mixed History of multiple concussions multiple falls DJD (degenerative joint disease) Hypothyroidism Surgical History Hx of colonoscopy 5.23.07 [facility]; normal H/O tubal ligation History of cataract surgery bilateral Family History Father Stroke CAD (coronary artery disease) Lung CA Mother Hypertension Heart attack Social History Smoking and tobacco/nicotine status: never used tobacco/nicotine Alcohol intake: former Former alcohol use details: rare in past Substance/Drug Use: never Household members: spouse Marital status: Number of children: 2 Highest education level completed: Bachelor's Degree Current occupational status: retired 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 Vitals/I&O/Wt Last Vital Signs Temp 97.5 F L 03/06/25 04:47 Pulse 80 03/06/25 07:47 Resp 15 03/06/25 05:30 BP 97/74 03/06/25 07:47 Pulse Ox 91 03/06/25 05:00 O2 Del Method Room Air 03/05/25 20:26 03/05/25 03/06/25 03/06/25 22:59 06:59 14:59 Intake Total 200 / 200 Output Total 450 / 450 350 / 350 Balance -450 / 210 -150 / -150 Weight last 48 hrs Weight 167 lb 1.6 oz Weight 180 lb 1.6 oz Weight 147 lb Physical Exam Narrative: General: In no acute distress Neck: No jugular venous distention or carotid bruits Heart: Normal S1 and S2 with a regular rate and rhythm, no cardiac murmurs Lungs: Normal respiratory effort with no use of intercostal muscles, clear lungs sounds to auscultation Extremities: No lower extremity edema Neuro: Alert and oriented x 3 Urinary Catheter Management: Villegas Latex: Cath Placed During This Visit: yes, but has since been removed by the nurse Reason for Continuing Indwelling Catheter: Decision to DC Catheter Urinary Catheter Date of Insertion: 03/04/25 Urinary Catheter Time of Insertion: 12:50 Date Urinary Catheter Removed: 03/05/25 Time Urinary Catheter Discontinued: 06:06 Data 03/06/25 04:22 03/06/25 04:22 Other data: Date of Service: 09/20/22 Procedure(s): ECG holter monitor 14 Days CONCLUSION: 1. The predominant rhythm was sinus bradycardia to sinus tachycardia.The Maximum Heart Rate recorded was 174 bpm, 09/28 14:07:50, the Minimum Heart Rate recorded was 46 bpm, 09/28 19:29:38, and the Average Heart Rate was 70 bpm. 2. There were 228 VE beats with a burden of <1 %. 3. There were 10,194 SVE beats with a burden of <1 %. There were 108 occurrences of Supraventricular Tachycardia with the Longest episode 17 beats, 09/26 17:48:31, and the Fastest episode 174 bpm, 09/28 14:07:49. 4. There were 26 Patient Triggers.Multiple patient symptoms of symptoms of dizziness correlated with rhythm with heart rate ranging from 63 to 83 bpm Electronically Signed On 10-30-2022 16:43:39 CDT by Mckenzie Johnson M.D. Date of Service: 09/20/22 Procedure(s): CV carotid duplex BI* [id number] ?FINDINGS ?Comparison: none available. ?No significant elevation of systolic or diastolic velocities. ?Waveforms are normal. ?Minimal bilateral, carotid atherosclerosis with no elevation of?velocity. ?Dr. Corina Hillman DO ?(Electronically Signed) Date of Service: 10/30/19 Procedure(s): Sestamibi Stress Test Request CONCLUSION: 1. Unremarkable Lexiscan infusion. 2. Nuclear imaging to follow. Electronically Signed On 10-30-2019 14:54:50 CDT by Adam Hernandez M.D. Date of Service: 10/30/19 Procedure(s): NM sonali perf SPECT r/s* [id number] ?IMPRESSIONS ?1. Myocardial perfusion imaging is normal. ?2. Overall left ventricular systolic function is normal without regional wall?motion abnormalities. ?3. The left ventricular ejection fraction is normal with a value of 59%. ?4. This study suggests a low likelihood of angiographically significant?coronary artery disease. ?Mckenzie Johnson MD ?(Electronically Signed) A&P Assessment and plan 1. Syncope: 2. Hypertension, essential: 3. Hypothyroidism: 4. SVT (supraventricular tachycardia): 5. Regional wall motion abnormality of heart: 6. Orthostatic hypotension: Plan: - unclear of cause of orthostatic hypotension, present over the years, perhaps autonomic dysfunction. - Currently hypothyroid. Thyroid replacement per Hospitalist team - Donapezil can cause orthostatic hypotension. Change this drug to an alternative if possible - Regional wall motion abnormality on echo in inferolateral wall with overall normal EF 55%. - no angina symptoms or h/o CAD - 1 Liter NS plus albumin - ok to start midodrine 5mg tid and advance if needed - Lexiscan nuclear stress test saturday to evaluate myocardial perfusion of the IL wall that appears hypokinetic on the echo PDMP PDMP Reviewed: Not Reviewed Coding Level of Care Code 87487 Diagnoses Syncope R55 Hypertension, essential I10 Hypothyroidism E03.9 SVT (supraventricular tachycardia) I47.10 Regional wall motion abnormality of heart R93.1 Orthostatic hypotension I95.1
--- NOTE | 2025-03-06 15:27 | P.PN_ITS ---
Subjective 2 Subjective: Patient was seen in the ICU. She was transferred from the floor after evaluation by Dr. Lomeli. I have spoken with the patient's primary care, and she did not take her off of her thyroid medicine. It appears that the patient transferred care from [facility], and likely, refills for this medication were requested from their, and it appears it was auto discontinued. The patient is doing well today. She seems alert and oriented with no complaints. Medications: Reviewed: Yes Vitals/I&O/Wt Last Vital Signs Temp 97.5 F L 03/06/25 04:47 Pulse 80 03/06/25 07:47 Resp 15 03/06/25 05:30 BP 97/74 03/06/25 07:47 Pulse Ox 91 03/06/25 05:00 O2 Del Method Room Air 03/05/25 20:26 03/06/25 03/06/25 03/06/25 06:59 14:59 22:59 Intake Total 200 / 200 Output Total 450 / 450 350 / 350 Balance -450 / 210 -150 / -150 Weight last 48 hrs Weight 167 lb 1.6 oz Weight 180 lb 1.6 oz Weight 147 lb Physical Exam 2 Const: COMMON NORMALS: no acute distress, average body habitus, patient oriented x3 and alert GENERAL APPEARANCE: cooperative and comfortable O RIENTATION/CONSCIOUSNESS: Yes awake HENMT: COMMON NORMALS: normocephalic and atraumatic HEAD & SCALP: n ormocephalic and atraumatic Eye: GENERAL EYE: appearance normal, both eyes and all related structures Chest: COMMONS NORMALS: normal inspection of the chest Resp: COMMON NORMALS: normal respiratory effort EFFORT & INSPECTION: Yes able to speak in complete sentences and Yes symmetric chest movement Extremity: LEFT LOWER EXTREMITY: Yes knee joint (Dressing is dry and intact.) Left knee: Yes inspection (There is no swelling and minimal ecchymosis), Yes palpation (No significant tenderness), Yes ROM (Not evaluated) and Yes neurovascular exam (Intact distally with no evidence of DVT) Neuro: COMMON NORMALS: patient oriented x3 SENSORIUM/ORIENTATION: Yes alert Psych: COMMON NORMALS: mental status grossly normal APPEARANCE: Yes grossly normal ATTITUDE: Yes calm and Yes engaged ATTENTION/CONCENTRATION: Yes attention grossly intact Skin: COMMON NORMALS: no rashes or lesions noted GENERAL SKIN EXAM: no rashes or lesions noted Urinary Catheter Management: Villegas Latex: Cath Placed During This Visit: yes, but has since been removed by the nurse Reason for Continuing Indwelling Catheter: Decision to DC Catheter Urinary Catheter Date of Insertion: 03/04/25 Urinary Catheter Time of Insertion: 12:50 Date Urinary Catheter Removed: 03/05/25 Time Urinary Catheter Discontinued: 06:06 Data 03/06/25 04:22 03/06/25 04:22 A&P Assessment and plan 1. Status post total left knee replacement not using cement: Patient is doing well with her total knee arthroplasty. She was transferred to the intensive care unit for issues related to her thyroid. This is being monitored and treated by the hospitalist team. As she is now considered CSU rather than ICU, therapies have been reinitiated. I will be turning over her care to Dr. Hanson from the hospitalist team as I am out of town until approximately [address] Lomeli has accepted her onto his service. 2. Primary osteoarthritis of left knee: PDMP PDMP Reviewed: Last Reviewed 03/05/25 15:26 EDT by Taryn Reeves MD Attestations 2 Medical Necessity Statement*: Per hospitalist team Coding Level of Care Code Acute Code for Chg Fwd Diagnoses Status post total left knee replacement not using cement Z96.652 Primary osteoarthritis of left knee M17.12 Osteoarthritis type: primary
--- NOTE | 2025-03-06 17:38 | PC.NURSE ---
tolerated up to bedside commode no dizziness or lightheaded voided small amt, monitor sr no ectopy noted , some confusion but less this pm
[2025-03-07] VITALS (33 sets, daily range): BP systolic 57–130; BP diastolic 38–75; PULSE 64–93; RESP 13–23; TEMP 36.6–37.2; O2SAT 88–97
[2025-03-07 04:19] LABS: Hematocrit 27.3 % (36-47); Hemoglobin 8.90 g/dL (11.27-16.99); Mean Corpuscular HGB Conc 32.6 g/dL (30-55); Mean Corpuscular Hemoglobin 30.2 pg (27-33); Mean Corpuscular Volume 92.5 fl (85-98); Nucleated Red Blood Cells % 0 %; Platelet Count 177 10^3/cmm (157-399); Red Blood Count 2.95 10^6/uL (3.85-5.65); White Blood Count 10.88 10^3/uL (3.29-11.43)
[2025-03-07 05:01] LABS: Alanine Aminotransferase < 5 U/L (0-33); Albumin Level 4.3 g/dL (3.5-5.2); Alkaline Phosphatase 54 U/L (35-105); Anion Gap 13.9 (5-19); Aspartate Amino Transferase 16 U/L (0-32); Blood Urea Nitrogen 11 mg/dL (8-23); Calcium 9.1 mg/dL (8.5-10.5); Carbon Dioxide 23 mmol/L (22-29); Chloride 103 mmol/L (98-107); Free T4 Free Thyroxine 0.56 ng/dL (0.82-1.77); Globulin 1.6 g/dL (1.3-4.6); Glucose 90 mg/dL (65-115); Osmolality Calculated 281 mOsm/kg (285-295); Potassium 3.9 mmol/L (3.5-5.1); Sodium 136 mmol/L (136-145); Thyroid Stimulating Hormone 86.73 uIU/mL (0.27-4.20); Total Protein 5.9 g/dL (6.6-8.7)
[2025-03-07] MEDS: sennosides-docusate Tablet 2 TAB PO (05:17)
[2025-03-07] MEDS: multivitamin therapeutic Tablet 1 TAB PO (05:18)
[2025-03-07] MEDS: albumin 25 G/100 ML BAG 60 G IV ×3 (05:22→23:00)
[2025-03-07] MEDS: chlorhexidine gluconate 0.12% Btl 473 mL 30 ML MUCOUS MEM ×4 (05:22→23:00)
[2025-03-07] MEDS: mupirocin oint 22 gm 1 APPLIC NASAL ×2 (05:23→17:04)
[2025-03-07] MEDS: sucralfate 1 gm/10 mL Oral Liq UDC PO ×3 (08:17→22:59)
[2025-03-07] MEDS: pantoprazole 40 mg SDV IVP ×2 (08:17→22:59)
[2025-03-07 08:29] LABS: Ferritin 299 ng/mL (15-150); Iron 22 ug/dL (37-145); Total Iron Binding Capacity 158 mcg/dl; Unsaturated Iron Binding 136 ug/dL (112-347)
--- NOTE | 2025-03-07 09:51 | P.PN_ITS ---
Subjective 2 Subjective: Receive post of brodyt. Having diarrhea. I just had them do repeat orthostatic VS: BP lying 110/67, sitting 83/58, standing 57/31 with lightheadedness Vitals/I&O/Wt Last Vital Signs Temp 98.1 F 03/07/25 04:00 Pulse 74 03/07/25 06:30 Resp 16 03/07/25 06:30 BP 116/68 03/07/25 06:30 Pulse Ox 91 03/07/25 06:30 O2 Del Method Room Air 03/07/25 06:00 03/06/25 03/07/25 03/07/25 22:59 05:59 14:59 Intake Total 520 / 920 360 / 1040 300 / 300 Output Total 850 / 1200 Balance -330 / -280 360 / -160 300 / 300 Weight last 48 hrs Weight 164 lb 3.91 oz Weight 167 lb 1.6 oz Physical Exam 2 Narrative: General: In no acute distress Neck: No jugular venous distention or carotid bruits Heart: Normal S1 and S2 with a regular rate and rhythm, no cardiac murmurs Lungs: Normal respiratory effort with no use of intercostal muscles, clear lungs sounds to auscultation Extremities: No lower extremity edema Neuro: Alert and oriented x 3 Urinary Catheter Management: Villegas Latex: Cath Placed During This Visit: yes, but has since been removed by the nurse Reason for Continuing Indwelling Catheter: Decision to DC Catheter Urinary Catheter Date of Insertion: 03/04/25 Urinary Catheter Time of Insertion: 12:50 Date Urinary Catheter Removed: 03/05/25 Time Urinary Catheter Discontinued: 06:06 Data 03/07/25 04:01 03/07/25 04:01 Other data: echo 03/05/25: Normal left ventricular size and ejection fraction of 55%. There is segmental wall motion abnormality with severe hypokinesis of the mid and the basal inferolateral wall segments. Normal right ventricular size and systolic function. Mild mitral valve regurgitation A&P Assessment and plan 1. Syncope: 2. Hypertension, essential: 3. Hypothyroidism: 4. SVT (supraventricular tachycardia): 5. Regional wall motion abnormality of heart: 6. Orthostatic hypotension: Plan: - unclear of exact cause of orthostatic hypotension prior to diarrhea, but contributing factors include hypothyroidism, anemia and donapezil. Now with diarrhea which will exacerbate orthostasis. Cannot rule out h/o some underlying autonomic dysfunction as well through the years contributing to orthostais. - avoid any more lexatives - T4 improving with supplementation - Hospitalist to address dementia medication - continue albumin, give 1L NS now, increase midodrine to 10 mg q6 hours - Regional wall motion abnormality on echo in the inferolateral wall with overall normal EF 55%. - no angina symptoms or h/o CAD - Lexiscan nuclear stress test tomorrow to further evaluate [place] WMA and possible CAD PDMP PDMP Reviewed: Not Reviewed Attestations 2 Medical Necessity Statement*: needs 2 more midnight of hospitalization due to hypotesion and near syncope Coding Level of Care Code 83390 Diagnoses Syncope R55 Hypertension, essential I10 Hypothyroidism E03.9 SVT (supraventricular tachycardia) I47.10 Regional wall motion abnormality of heart R93.1 Orthostatic hypotension I95.1
--- NOTE | 2025-03-07 14:01 | P.PN_ITS ---
Subjective 2 Subjective: Patient was seen as, she is alert oriented x 3, follows all commands, denies any fevers, chills, cough no chest pain, no palpitations, no lightheadedness - Nursing staff had denied orthostatic v itals on her blood pressure dropped to 57/38, she was symptomatic, - I reexamined her she is alert oriented x 3, follow commands, normotensive, cardiology has ordered a fluid bolus, - Discussed monitoring her hemodynamics, her dose of midodrine has been increased, discussed her decrease in hemoglobin, will check her hemodynamics, - Discussed holding Aricept as possible etiology behind her orthostatic hypotension - Will monitor hemoglobin, monitor hemod ynamics, midodrine dose is increased, plan on stress testing tomorrow morning Vitals/I&O/Wt Last Vital Signs Temp 98.1 F 03/07/25 04:00 Pulse 68 03/07/25 10:03 Resp 16 03/07/25 06:30 BP 83/58 03/07/25 10:03 Pulse Ox 91 03/07/25 06:30 O2 Del Method Room Air 03/07/25 06:00 03/06/25 03/07/25 03/07/25 22:59 05:59 14:59 Intake Total 520 / 920 360 / 1040 650 / 650 Output Total 850 / 1200 350 / 350 Balance -330 / -280 360 / -160 300 / 300 Weight last 48 hrs Weight 74.5 kg Weight 75.795 kg Physical Exam 2 Const: COMMON NORMALS: no acute distress and patient oriented x3 Resp: COMMON NORMALS: normal respiratory effort, No retractions, No use of accessory muscles and clear to auscultation bilaterally AUSCULTATION: clear to auscultation bilaterally Cardio: COMMON NORMALS: regular rate, regular rhythm, S1 normal heart sound present and S2 normal heart sound present RATE: regular rate RHYTHM: r egular rhythm HEART SOUNDS: S1 normal heart sound present and S2 normal heart sound present GI: COMMON NORMALS: Normal to inspection, nondistended, normoactive bowel sounds present and non-tender Extremity: COMMON NORMALS: no pedal edema Neuro: COMMON NORMALS: patient oriented x3, CN's II-XII intact bilaterally and moves all extremities Psych: COMMON NORMALS: mental status grossly normal Urinary Catheter Management: Villegas Latex: Cath Placed During This Visit: yes, but has since been removed by the nurse Reason for Continuing Indwelling Catheter: Decision to DC Catheter Urinary Catheter Date of Insertion: 03/04/25 Urinary Catheter Time of Insertion: 12:50 Date Urinary Catheter Removed: 03/05/25 Time Urinary Catheter Discontinued: 06:06 Data 03/07/25 04:01 03/07/25 04:01 A&P Assessment and plan 1. Syncope: 2. Myxedema coma: Plan: Syncope - Positive orthostatic vitals blood pressure dropped to 57/38 upon standing - Serial EKGs, troponins, telemetry monitoring - I suspect some degree of her syncope is orthostatic hypotension Has been placed on midodrine 5 mg 3 times daily, increase to 10 mg every 6 hours -As she has a history of syncope, dizziness, since 2022 - Has received fluids, albumin - Will order a cosyntropin stimulation test, after cardiac stress testing to evaluate for adrenal insufficiency -Cortisol levels 29.48, 31.58, 17.43 - Carotid artery ultrasound within normal limits - Full code - Aspirin for DVT prophylaxis Myxedema coma - Patient's blood pressures remain soft, MAP is around 65, heart rates 40s to 50s, patient does not feel well, she feels sick, lightheaded - Monitor TSH, free T4, free T3 - Concerns for myxedema coma - History of SVT - Will give another 100 mcg IV levothyroxine, continue liothyronine - Will moved to CSU - Monitor hemodynamics closely, monitor TSH, T3 closely Cardiac echo CONCLUSIONS Normal left ventricular size and ejection fraction of 55%. There is segmental wall motion abnormality with severe hypokinesis of the mid and the basal inferolateral wall segments. Normal right ventricular size and systolic function. Mild mitral valve regurgitation -No chest pain complaints - Continue aspirin - Cardiology consulted - Cardiac stress testing tomorrow Status post total left knee replacement - Aspirin for DVT prophylaxis - PT OT Postoperative hypotension - Could be a component of anesthetic Postoperative anemia - Iron studies, ferritin, reticulocyte count - Recheck a.m. hemoglobin this afternoon PDMP PDMP Reviewed: Not Reviewed Attestations 2 Medical Necessity Statement*: Patient requires evaluation for syncope, myxedema coma, postoperative hypotension, postoperative anemia Diagnoses Syncope R55 Myxedema coma E03.5
--- NOTE | 2025-03-07 14:17 | PC.NURSE ---
awake and alert this am no c/o pain left knee dressing in place no drainage bruising around area has had diarrhea to with several loose stools, vital check lying 110/40 sitting 83/52 standing 58/35 orders noted increase medication up to bedside commode with staff at bedside no dizziness noted family at bedside at this time up in chair for about 1 hour this am
[2025-03-07 15:42] LABS: Hematocrit 24.8 % (36-47); Hemoglobin 8.10 g/dL (11.27-16.99)
[2025-03-07 16:27] LABS: Thyroid Stimulating Hormone 61.03 uIU/mL (0.27-4.20); Vitamin B12 569 pg/mL (232-1245)
[2025-03-07] MEDS: ferric gluconate 125 MG in sodium chloride 0.9% (100 ml) 100 ML 110 MG IV (17:14)
[2025-03-08] VITALS (14 sets, daily range): BP systolic 85–119; BP diastolic 52–77; PULSE 73–89; RESP 14–20; TEMP 36.6–37.1; O2SAT 89–98
--- NOTE | 2025-03-08 | ECG_ITS ---
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 Interpretive Statements Procedure: A total of 0.4 mg of Lexiscan was infused over 20 seconds. The stress phase was continued for a total of 5 minutes. Sestamibi was injected 20 seconds after the Lexiscan infusion. Findings:The patient's resting blood pressure was 110/62 mmHg with a heart rate of 80 bpm. The blood pressure decreased to 92/41 mmHg and the heart rate increased to 100 bpm after Lexiscan injection. The patient received 250 cc bolus of IV fluid and she also received aminophylline 25 mg IV with improvement in blood pressure back to 103/50 and heart rate improved to 82 bpm. The resting EKG showed normal sinus rhythm. There were no ST or T wave changes throughout the stress test. There were occasional premature ventricular contractions. Conclusion: 1. Normal EKG response to Lexiscan infusion 2. No Lexiscan induced chest pain 3. Normal blood pressure and heart rate response. 4. Occasional premature ventricular contractions 5. Nuclear myocardial perfusion scan pending; see separate report. Electronically Signed On 03-08-2025 13:25:46 NAILHEAD SETTER by Evelio Cheema M.D. [email or web address]
[2025-03-08 03:55] LABS: Hematocrit 27.3 % (36-47); Hemoglobin 9.10 g/dL (11.27-16.99); Mean Corpuscular HGB Conc 33.3 g/dL (30-55); Mean Corpuscular Hemoglobin 31.2 pg (27-33); Mean Corpuscular Volume 93.5 fl (85-98); Nucleated Red Blood Cells % 0 %; Platelet Count 142 10^3/cmm (157-399); Red Blood Count 2.92 10^6/uL (3.85-5.65); White Blood Count 8.74 10^3/uL (3.29-11.43)
[2025-03-08 04:29] LABS: Alanine Aminotransferase < 5 U/L (0-33); Albumin Level 4.3 g/dL (3.5-5.2); Alkaline Phosphatase 51 U/L (35-105); Aspartate Amino Transferase 16 U/L (0-32); Blood Urea Nitrogen 8 mg/dL (8-23); Calcium 8.6 mg/dL (8.5-10.5); Carbon Dioxide 20 mmol/L (22-29); Chloride 106 mmol/L (98-107); Free T4 Free Thyroxine 0.58 ng/dL (0.82-1.77); Globulin 1.2 g/dL (1.3-4.6); Glucose 78 mg/dL (65-115); Osmolality Calculated 283 mOsm/kg (285-295); Sodium 138 mmol/L (136-145); Thyroid Stimulating Hormone 60.94 uIU/mL (0.27-4.20); Total Protein 5.5 g/dL (6.6-8.7)
[2025-03-08 04:30] LABS: Anion Gap 15.5 (5-19); Potassium 3.5 mmol/L (3.5-5.1)
[2025-03-08] MEDS: multivitamin therapeutic Tablet 1 TAB PO (05:52)
[2025-03-08] MEDS: chlorhexidine gluconate 0.12% Btl 473 mL 30 ML MUCOUS MEM (05:53)
[2025-03-08] MEDS: mupirocin oint 22 gm 1 APPLIC NASAL (05:53)
[2025-03-08] MEDS: albumin 25 G/100 ML BAG 60 G IV (05:53)
[2025-03-08] MEDS: aminophylline 25 mg/mL SDV 20 mL IVP (08:30)
[2025-03-08] MEDS: pantoprazole 40 mg SDV IVP (09:01)
[2025-03-08] MEDS: sucralfate 1 gm/10 mL Oral Liq UDC PO (09:02)
--- NOTE | 2025-03-08 10:07 | NMCV_ITS ---
NM sonali perf SPECT r/s* [id number] Cassy Rockwell Age: 80 Gender: F : 1945 Exam Date: 03/08/2025 07:01 Ordering Phys: Evelio Cheema MD ([email or web address]) Technologist: SARAH Cabrera Exam Location: [facility] Indications: CP STRESS TEST Please see separate stress test report in [facility] for full findings IMAGE PROTOCOL Rest/Stress 1 Lexiscan Day Radiopharmaceutical Dose (mCi) Administration Site Administered by Rest: Tc-99m 10.6 IV Anum Shultz, ROLL PANNER Sestamibi Stress:Tc-99m 32.6 IV Anum Nicholegle, ROLL PANNER Sestamibi Rest: 08-Mar-2025 60 Discovery 630 Stress: 08-Mar-2025 30 Discovery 630 0.4mg Lexiscan. Supine position only as patient was unable to lay prone. SPECT RESULTS Technical Quality: Good Raw Data Analysis: Normal Image Corrections: No attenuation or motion correction applied Summed Stress Score: 0 Summed Rest Score: 0 Summed Difference Score: 0 PERFUSION FINDINGS SPECT images demonstrate homogeneous tracer distribution throughout the myocardium. FUNCTIONAL RESULTS (calculated via Gated SPECT) Stress Image LV EF (%): 75 Stress EDV (mL):64 TID: 1.2 Stress ESV (mL):16 FUNCTIONAL FINDINGS: There is normal global left ventricular systolic function. IMPRESSIONS Myocardial perfusion imaging is normal. There is normal global left ventricular systolic function, EF 75%. Evelio Cheema MD, FACC (Electronically Signed) Final Date: 08 March 2025 13:10 S
--- NOTE | 2025-03-08 11:19 | P.PN_ITS ---
<Statement entered by Evelio Cheema MD - 03/08/25 18:25> Patient was evaluated and cared for in conjunction with an advanced practice practitioner. I personally saw the patient and reviewed the chart and all pertinent data. I discussed the patient in detail with the advanced practice practitioner. Please see their note for complete assessment and agreed upon plan of care for the patient. Subjective 2 Subjective: She had stress test this morning. Blood pressures ranging 85-113 systolic. She has been walking in the ICU today without dizziness or presyncope. Vitals/I&O/Wt Last Vital Signs Temp 97.8 F 03/08/25 04:00 Pulse 76 03/08/25 09:15 Resp 14 03/08/25 04:30 BP 111/66 03/08/25 08:37 Pulse Ox 95 03/08/25 09:15 O2 Del Method Room Air 03/08/25 09:15 03/07/25 03/08/25 03/08/25 22:59 06:59 14:59 Intake Total 1760 / 2990 580 / 2990 Output Total 750 / 1350 250 / 1350 350 / 350 Balance 1010 / 1640 330 / 1640 -350 / -350 Weight last 48 hrs Weight 168 lb 8 oz Weight 164 lb 3.91 oz Physical Exam 2 Const: COMMON NORMALS: no acute distress and patient oriented x3 GENERAL APPEARANCE: cooperative and comfortable ORIENTATION/CONSCIOUSNESS: Yes awake, Yes oriented to person, Yes oriented to place and Yes oriented to time Chest: COMMONS NORMALS: normal inspection of the chest and normal palpation of entire chest wall CHEST: Yes Symmetrical chest wall rise Resp: COMMON NORMALS: normal respiratory effort, No retractions, No use of accessory muscles and clear to auscultation bilaterally EFFORT & INSPECTION: Yes symmetric chest movement AUSCULTATION: clear to auscultation bilaterally Cardio: COMMON NORMALS: regular rate, regular rhythm, S1 normal heart sound present, S2 normal heart sound present, No gallops present (Cardio), No clicks present (Cardio), No murmurs present (Cardio) and No rub (Cardio) RATE: r egular rate RHYTHM: regular rhythm HEART SOUNDS: S1 normal heart sound present and S2 normal heart sound present PERIPHERAL PULSES: radial pulses present Extremity: COMMON NORMALS: no pedal edema Neuro: COMMON NORMALS: patient oriented x3 and moves all extremities S ENSORIUM/ORIENTATION: Yes oriented to person, Yes oriented to place and Yes oriented to time Urinary Catheter Management: Villegas Latex: Cath Placed During This Visit: yes, but has since been removed by the nurse Reason for Continuing Indwelling Catheter: Decision to DC Catheter Urinary Catheter Date of Insertion: 03/04/25 Urinary Catheter Time of Insertion: 12:50 Date Urinary Catheter Removed: 03/05/25 Time Urinary Catheter Discontinued: 06:06 Data 03/08/25 03:13 03/08/25 03:13 A&P Assessment and plan 1. Orthostatic hypotension: 2. Hypertension, essential: 3. Regional wall motion abnormality of heart: 4. SVT (supraventricular tachycardia): 5. Syncope: Plan: Hypotension improved with midodrine, orthostatic vitals today were negative. She has been ambulating with physical therapy in the ICU. 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 Continue midodrine. Stress test negative for ischemia, normal LVEF. Plan is for discharge today, with referral for endocrinology to manage hypothyroidism, and general surgery regarding anemia. PDMP PDMP Reviewed: Not Reviewed Attestations 2 Medical Necessity Statement*: discharge today Coding Level of Care Code Acute Code for Chg Fwd Diagnoses Orthostatic hypotension I95.1 Hypertension, essential I10 Regional wall motion abnormality of heart R93.1 SVT (supraventricular tachycardia) I47.10 Syncope R55
--- NOTE | 2025-03-08 12:22 | PC.SOCIAL ---
IMM Updated Updated pt on IMM. No questions voiced. Provided pt a copy. Initialed, dated, & timed a copy & placed in chart.
--- NOTE | 2025-03-08 13:18 | PM.DCS ---
Discharge Providers Date of Admission: 03/06/25 13:59 Date of Discharge: March 08, 2025 Attending Provider at Admission: Taryn Reeves MD Attending Provider at Discharge: Abram Lomeli MD Primary Care Provider: Mary Pink MD Diagnoses at Discharge Discharge Diagnosis 1. Syncope: 2. Myxedema coma: Reason for Visit Reason for Visit: M17.12 Hospital Course Hospital Course This is a 80-year-old female who presented to [facility] for left total knee arthroplasty, will be discharged on aspirin for DVT prophylaxis Patient was admitted to [facility] for syncope -- Positive orthostatic vitals blood pressure dropped to 57/38 upon standing - Serial EKGs, troponins, telemetry monitoring - I suspect some degree of her syncope is orthostatic hypotension Has been placed on midodrine 5 mg 3 times daily, increase to 10 mg every 6 hours -As she has a history of syncope, dizziness, since 2022 - Has received fluids, albumin -Cortisol levels 29.48, 31.58, 17.43, no significant evidence of adrenal insufficiency - Carotid artery ultrasound within normal limits - Some component related to postoperative anemia, requiring 1 unit PRBC hemoglobin 9.1 on discharge - Some component related to myxedema coma received IV levothyroxine - On discharge patient's syncope has resolved -She does have some degree of orthostatic hypotension, but relatively asymptomatic - Discussed with patient the morbidity and mortality associated with orthostatic hypotension, risk of falls, trauma, fractures, bleeding - Discussed that she should always ambulate with a wheeled walker - If any recurrent syncope go to the emergency room - I have discharged her on midodrine 5 mg 3 times daily -Please do not use midodrine within 4 hours of falling asleep, monitor for supine hypertension Myxedema coma, elevated TSH, low T3, low T4 - Patient's blood pressures remain soft, MAP is around 65, heart rates 40s to 50s, patient does not feel well, she feels sick, lightheaded - Monitor TSH, free T4, free T3 - Concerns for myxedema coma - History of SVT - Managed in ICU with IV levothyroxine, liothyronine - Overall clinically improved, TSH improving, free T3, free T4 improving - Patient wants to go home today - Will discharge on levothyroxine 75 mcg daily - Liothyronine daily for the next 5 days - Will have primary care provider recheck TSH, T3, T4 daily Postoperative anemia - Has evidence of early iron deficiency anemia - Received 1 unit PRBC with IV iron - Discharged on Protonix, Carafate, with a close follow-up with primary care provider - Follow-up with general surgery for consideration of EGD - If you develop bloody black stools please go to emergency room Cardiac echo CONCLUSIONS Normal left ventricular size and ejection fraction of 55%. There is segmental wall motion abnormality with severe hypokinesis of the mid and the basal inferolateral wall segments. Normal right ventricular size and systolic function. Mild mitral valve regurgitation -No chest pain complaints - Continue aspirin - Cardiology consulted, medical management - Cardiac stress testing - IMPRESSIONS Myocardial perfusion imaging is normal. There is normal global left ventricular systolic function, EF 75%. - Discharged with follow-up with cardiology Range of motion, strengthening, and gait training per physical therapy. Elevate your leg. You may shower, but do not soak your knee in water. Leave your dressing in place until it comes off on its own or begins to leak at which time you may remove it. - For your orthostatic hypotension - Please use midodrine, please do not use within 4 hours of falling asleep, monitor for supine hypertension -meaning when laying down, check your blood pressure once daily, and if your systolic blood pressure is greater than 150 or your diastolic blood pressures greater than 90 or you have chest pain or shortness of breath please discuss with primary care provider, likely decrease midodrine to twice daily - For your anemia, monitor your hemoglobin, have your primary care provider recheck your hemoglobin in 48 hours, your hemoglobin on discharge is 9.1 - Please take Protonix and Carafate as prescribed - If you develop any bloody or black stools go to the emergency room - For your hypothyroidism - Take levothyroxine 75 mcg daily - Have your primary care provider recheck your TSH in 48 hours -Your TSH on discharge is 60.94, your free T4 is 0.58, your free T3 is 1.2 - If your TSH is greater than 60.94 your levothyroxine dose will need to be adjusted, but this is up to your primary care physician -Please continue liothyronine for 5 days, and discontinue thereafter, if you develop chest pain or palpitations with taking this medication please discontinue, discussed with primary care - If you have chest pain please go to the emergency room - Please continue physical therapy - Monitor for risk of DVTs and pulmonary embolism, if you develop calf pain or calf swelling please immediately go to the emergency room Physical Exam Const: COMMON NORMALS: no acute distress and patient oriented x3 Eye: COMMON NORMALS: Equal, round and reactive pupils present PUPIL: Yes Equal, round and reactive pupils present Resp: COMMON NORMALS: normal respiratory effort, No retractions, No use of accessory muscles and clear to auscultation bilaterally AUSCULTATION: clear to auscultation bilaterally Cardio: COMMON NORMALS: regular rate, regular rhythm, S1 normal heart sound present and S2 normal heart sound present RATE: regular rate RHYTHM: regular rhythm HEART SOUNDS: S1 normal heart sound present and S2 normal heart sound present GI: COMMON NORMALS: Normal to inspection, nondistended, normoactive bowel sounds present and non-tender Extremity: COMMON NORMALS: no pedal edema Neuro: COMMON NORMALS: patient oriented x3, CN's II-XII intact bilaterally, moves all extremities and no focal motor deficits Psych: COMMON NORMALS: mental status grossly normal Urinary Catheter Management: Villegas Latex: Cath Placed During This Visit: yes, but has since been removed by the nurse Reason for Continuing Indwelling Catheter: Decision to DC Catheter Urinary Catheter Date of Insertion: 03/04/25 Urinary Catheter Time of Insertion: 12:50 Date Urinary Catheter Removed: 03/05/25 Time Urinary Catheter Discontinued: 06:06 Discharge Data Studies Completed and Pending Completed Studies During Hospitalization Category Date Time Status Cardiac Stress Test MIBI [Sestamibi Stress Test Request Exams 03/08/25 07:00 Draft ] Routine XR chest 1V portable [id number] Routine Exams 03/05/25 14:36 Completed XR knee LT 1-2V [id number] Routine Exams 03/04/25 15:13 Completed NM sonali perf SPECT r/s* [id number] Routine Nuc Med 03/08/25 10:07 Completed CV carotid duplex BI* [id number] Routine Ultrasound 03/05/25 14:36 Completed CV. echo complete* [id number] Routine Ultrasound 03/05/25 14:36 Completed Pending at discharge Category Date Time Status Sestamibi Stress Test Request Routine Exams 03/07/25 07:59 Ordered Occult Blood Stool [Immunochemical Fecal OCB] Routine Lab 03/07/25 14:01 Uncollected SPEP [Total Protein Electrophoresis] Routine Lab 03/07/25 15:22 Received Urine Protein Electrop Random Routine Lab 03/07/25 14:08 Uncollected Radiology Impressions Knee X-Ray 03/04/25 15:13 IMPRESSION: 1. Total knee replacement in excellent position. Carotid Doppler Study 03/05/25 14:36 IMPRESSION: No carotid arterial stenosis. REFERENCES: SRU CRITERIA. The degree of internal carotid artery stenosis is based on criteria defined by the Society of Radiologists in Ultrasound (SRU). Normal is no stenosis. Mild is less than 50% stenosis. Moderate is 50-69% stenosis. Severe is greater than 69% stenosis to near occlusion. Near occlusion is a markedly narrowed lumen. Total occlusion is no detectable patent lumen. Becca Streeter, et al. Carotid Artery Stenosis: [place]-Scale and Doppler US Diagnosis-Society of Radiologists in Ultrasound Consensus Conference. Radiology 2003; 229:340-346. Chest X-Ray 03/05/25 14:36 IMPRESSION: 1. No acute cardiopulmonary finding. Laboratory Results WBC 8.74 10^3/uL (3.29-11.43) 03/08/25 03:13 RBC 2.92 10^6/uL (3.85-5.65) L 03/08/25 03:13 Hgb 9.10 g/dL (11.27-16.99) L 03/08/25 03:13 Hct 27.3 % (36-47) L 03/08/25 03:13 MCV 93.5 fl (85-98) 03/08/25 03:13 MCH 31.2 pg (27-33) 03/08/25 03:13 MCHC 33.3 g/dL (30-55) 03/08/25 03:13 RDW 15.0 % (12.1-15.1) 03/08/25 03:13 Plt Count 142 10^3/cmm (157-399) L 03/08/25 03:13 MPV 11.4 fL (7.4-10.4) H 03/08/25 03:13 Neut % (Auto) 73.1 % 03/08/25 03:13 Lymph % (Auto) 16.4 % 03/08/25 03:13 [place] % (Auto) 8.2 % 03/08/25 03:13 Eos % (Auto) 1.5 % 03/08/25 03:13 Baso % (Auto) 0.3 % 03/08/25 03:13 Reticulocyte % (Auto) 1.3 % (0.5-2.0) 03/07/25 04:01 Neut # (Auto) 6.39 10^3/uL (1.8-7.7) 03/08/25 03:13 Lymph # (Auto) 1.4 10^3/uL (0.8-4.8) 03/08/25 03:13 [place] # (Auto) 0.7 10^3/uL (0.2-0.9) 03/08/25 03:13 Eos # (Auto) 0.1 10^3/uL (0.0-0.8) 03/08/25 03:13 Baso # (Auto) 0.0 10^3/uL (0.0-0.1) 03/08/25 03:13 Nucleated RBC % (auto) 0 % 03/08/25 03:13 Nucleated RBCs # 0.0 /100WBC 03/08/25 03:13 Sodium 138 mmol/L (136-145) 03/08/25 03:13 Potassium 3.5 mmol/L (3.5-5.1) 03/08/25 03:13 Chloride 106 mmol/L (98-107) 03/08/25 03:13 Carbon Dioxide 20 mmol/L (22-29) L 03/08/25 03:13 Anion Gap 15.5 (5-19) 03/08/25 03:13 BUN 8 mg/dL (8-23) 03/08/25 03:13 Creatinine 0.7 mg/dL (0.5-0.9) 03/08/25 03:13 GFR Calculation Not Reportable 03/08/25 03:13 Glucose 78 mg/dL (65-115) 03/08/25 03:13 POC Glucose 129 mg/dL (70-110) H 03/06/25 11:55 Calculated Osmolality 283 mOsm/kg (285-295) L 03/08/25 03:13 Lactic Acid 1.2 mmol/L (0.5-2.2) 03/05/25 14:56 Calcium 8.6 mg/dL (8.5-10.5) 03/08/25 03:13 Iron 22 ug/dL (37-145) L 03/07/25 04:01 TIBC 158 mcg/dl 03/07/25 04:01 % Saturation 13.9 % (20-50) L 03/07/25 04:01 Unsat Iron Binding 136 ug/dL (112-347) 03/07/25 04:01 Ferritin 299 ng/mL (15-150) H 03/07/25 04:01 Total Bilirubin 1.2 mg/dL (0.15-1.2) 03/08/25 03:13 AST 16 U/L (0-32) 03/08/25 03:13 ALT < 5 U/L (0-33) 03/08/25 03:13 Alkaline Phosphatase 51 U/L (35-105) 03/08/25 03:13 Creatine Kinase 181 U/L (26-192) 03/05/25 14:56 Troponin T Baseline 9 ng/L (0-10) 03/05/25 14:56 Troponin T 120 Minute 11.21 ng/L (0-10) H 03/05/25 17:36 Delta Troponin T 2.21 ABS# (0-10) 03/05/25 17:36 Troponin T Hi Sens 6Hr 9.81 ng/L (0-10) 03/05/25 20:49 Troponin T Hi Sens 6Hr Delta 0.81 ng/L (0-12) 03/05/25 20:49 NT-Pro-B Natriuret Pep 66 pg/mL (0-450) 03/05/25 14:56 Total Protein 5.5 g/dL (6.6-8.7) L 03/08/25 03:13 Albumin 4.3 g/dL (3.5-5.2) 03/08/25 03:13 Globulin 1.2 g/dL (1.3-4.6) L 03/08/25 03:13 Vitamin B12 569 pg/mL (232-1245) 03/07/25 15:22 Folate 13.6 ng/mL (4.8-37.3) 03/07/25 15:22 TSH 60.94 uIU/mL (0.27-4.20) H 03/08/25 03:13 TSH Cancelled 03/08/25 03:13 Free T4 0.58 ng/dL (0.82-1.77) L 03/08/25 03:13 Free T4 Cancelled 03/08/25 03:13 Free T3 1.2 PG/ML (2.0-4.4) L 03/08/25 03:13 Free T3 Cancelled 03/08/25 03:13 Random Cortisol 11.42 ug/dL (2.47-19.5) 03/08/25 03:13 Urine Color Yellow (Yellow) 03/05/25 23:10 Urine Appearance Clear (CLEAR) 03/05/25 23:10 Urine pH 5.5 (5-7) 03/05/25 23:10 Ur Specific [place] 1.014 (1.005-1.030) 03/05/25 23:10 Urine Protein Negative (Negative) 03/05/25 23:10 Urine Glucose (UA) Negative (Normal) 03/05/25 23:10 Urine Ketones Trace (Negative) 03/05/25 23:10 Urine Blood Negative (Negative) 03/05/25 23:10 Urine Nitrate Negative (Negative) 03/05/25 23:10 Urine Bilirubin Negative (Negative) 03/05/25 23:10 Urine Urobilinogen 0.2 mg/dL (Negative) 03/05/25 23:10 Ur Leukocyte Esterase Negative (Negative) 03/05/25 23:10 Urine RBC 0-2 /hpf (0-2) 03/05/25 23:10 Urine WBC 0-5 /hpf (0-5) 03/05/25 23:10 Ur Squamous Epith Cells 0-5 /hpf (0-5) 03/05/25 23:10 Amorphous Sediment Not Reportable 03/05/25 23:10 Urine Bacteria None seen /hpf (NONE) 03/05/25 23:10 Hyaline Casts 1.65 /lpf 03/05/25 23:10 Blood Type A Positive 03/07/25 17:36 Rho(D) Type Rh positive 03/07/25 17:36 Antibody Screen Negative 03/07/25 17:36 Crossmatch See Detail 03/07/25 17:36 Vitals Last Vital Signs Temp 97.8 F 03/08/25 04:00 Pulse 76 03/08/25 09:15 Resp 14 03/08/25 04:30 BP 111/66 03/08/25 08:37 Pulse Ox 95 03/08/25 09:15 O2 Del Method Room Air 03/08/25 09:15 Discharge Plan Discharge Patient Disposition: Home Health Service Condition: Stable Prescriptions: New acetaminophen 500 mg Tablet 1,000 mg PO Q8H 15 Days Qty: 90 0RF aspirin 325 mg Tablet,Delayed Release (Dr/Ec) 325 mg PO DAILY 30 Days Qty: 30 0RF oxycodone 5 mg Tablet 5 mg PO Q4H PRN (Reason: Moderate To Severe Pain) 7 Days Qty: 40 0RF multivitamin with folic acid [Thera] 400 mcg Tablet 1 tab PO DAILY 30 Days Qty: 0 0RF liothyronine 5 mcg Tablet 5 mcg PO Q12H 5 Days Qty: 10 0RF levothyroxine 75 mcg capsule 75 mcg PO DAILY 30 Days Qty: 30 0RF midodrine 5 mg tablet 5 mg PO TID 30 Days Qty: 90 0RF Rx Instructions: do not give last dose of day after 6PM or within 4 hrs of bedtime - Monitor for supine hypertension pantoprazole [Protonix] 40 mg tablet,delayed release (DR/EC) 40 mg PO BID 30 Days Qty: 60 0RF sucralfate [Carafate] 1 gram tablet 1 g PO BID 28 Days Qty: 56 0RF ferrous sulfate 325 mg (65 mg iron) tablet 325 mg PO BID 30 Days Qty: 60 0RF Continued sertraline 25 mg tablet 25 mg PO DAILY Qty: 90 1RF Held acetaminophen 500 mg Tablet 500 - 1,000 mg PO Q6H PRN (Reason: Pain) Hold Instructions: Until scheduled Tylenol is completed Discontinued meloxicam 15 mg tablet 15 mg PO QAM Qty: 90 3RF donepezil 5 mg tablet 5 mg PO DAILY Qty: 90 3RF Other Ambulatory Orders: DME: Jules (Order) Location: None Selected Ordered By: Abarm Lomeli Referrals: [facility] Home Care ([facility]) [Outside] Slick Kahn MD [Physician, General Surgery] - 03/23/25 9:00 am Referral Note: Taryn Montoya MD [Physician, Orthopedics] - 03/17/25 11:15 am Charline Valero MD [Physician, Endocrinology] - 2 weeks Referral Note: This DR is out on medical leave Discharge Diet: Advance as tolerated and Usual diet Discharge Activity: Increase activity as tolerated, Limit activity as instructed, Use walker/crutches as instructed and As per PT/OT instructions Patient Instructions: Iron Supplements (By mouth), Sucralfate (By mouth), Acetaminophen (By mouth), Levothyroxine (By mouth), Aspirin (By mouth) (Lazaro Extra Strength, Lazaro Aspirin Children's,..., Multivitamins with Minerals (By mouth), Oxycodone, Rapid Release (By mouth) (ETH-Oxydose, Oxy IR,..., Midodrine (By mouth), Pantoprazole (By mouth), Liothyronine (By mouth), Acute Wound Care (DC), Precautions after Total Joint Replacement Surgery (DC), Total Knee Replacement (DC), Opioid Safety, Post Anesthesia Care, Patient Portal & Martina Instructions Activity Restrictions/Additional Instructions: Range of motion, strengthening, and gait training per physical therapy. Elevate your leg. You may shower, but do not soak your knee in water. Leave your dressing in place until it comes off on its own or begins to leak at which time you may remove it. - For your orthostatic hypotension - Please use midodrine, please do not use within 4 hours of falling asleep, monitor for supine hypertension -meaning when laying down, check your blood pressure once daily, and if your systolic blood pressure is greater than 150 or your diastolic blood pressures greater than 90 or you have chest pain or shortness of breath please discuss with primary care provider, likely decrease midodrine to twice daily - For your anemia, monitor your hemoglobin, have your primary care provider recheck your hemoglobin in 48 hours, your hemoglobin on discharge is 9.1 - Please take Protonix and Carafate as prescribed - If you develop any bloody or black stools go to the emergency room - For your hypothyroidism - Take levothyroxine 75 mcg daily - Have your primary care provider recheck your TSH in 48 hours -Your TSH on discharge is 60.94, your free T4 is 0.58, your free T3 is 1.2 - If your TSH is greater than 60.94 your levothyroxine dose will need to be adjusted, but this is up to your primary care physician -Please continue liothyronine for 5 days, and discontinue thereafter, if you develop chest pain or palpitations with taking this medication please discontinue, discussed with primary care - If you have chest pain please go to the emergency room - Please continue physical therapy - Monitor for risk of DVTs and pulmonary embolism, if you develop calf pain or calf swelling please immediately go to the emergency room Discharge Attestations Time Spent in Discharge Care*: greater than 30 min Quality Metrics Clinical Quality Measures [ No reported AMI, CVA or VTE this stay] Coding Level of Care Code 86208 Total time (in minutes) for Discharge: 45 Diagnoses Syncope R55 Myxedema coma E03.5
--- NOTE | 2025-03-08 15:46 | PC.OT ---
OT TREATMENT ATTEMPTED. PATIENT IN PROCESS OF D/C AT THIS TIME
--- NOTE | 2025-03-08 16:08 | PC.NURSE ---
Patient was discharged via wheelchair with . All discharge instructions gone over with and including Medications, follow up appointments, wound care, signs and symptoms of GI bleeds, and daily orthostatic blood pressures. All of this informations was given to daughter over the phone as well.
[2025-03-09 11:05] LABS: PROTEIN, TOTAL 5.9 g/dL (6.1-8.1)
[2025-03-09 21:55] LABS: ALPHA 1 GLOBULIN 0.3 g/dL (0.2-0.3); ALPHA 2 GLOBULIN 0.5 g/dL (0.5-0.9); BETA 1 GLOBULIN 0.2 g/dL (0.4-0.6); BETA 2 GLOBULIN 0.2 g/dL (0.2-0.5)
== END 2025-03-08 15:35 | disposition home health service (06) | DRG 982 ==
LOC: MEDSURG 15:19 → ICU 03-05 18:38
PROVIDERS: Admitting Provider Specialist; PCP Family Medicine; Visit Provider Family Medicine
PROC: 8E0Y0CZ Robotic Assisted Procedure of Lower Extremity, Open Approach (ICD-10-PCS; CPT 27447; principal; 2025-03-04 14:10)
DX: E03.5 Myxedema coma (principal); D62 Acute posthemorrhagic anemia; I47.10 Supraventricular tachycardia, unspecified; M17.12 Unilateral primary osteoarthritis, left knee; I95.1 Orthostatic hypotension; D50.9 Iron deficiency anemia, unspecified; I10 Essential (primary) hypertension; F32.A Depression, unspecified; F03.90 Unspecified dementia, unspecified severity, without behavioral disturbance, psychotic disturbance, mood disturbance, and anxiety; E78.2 Mixed hyperlipidemia; E03.9 Hypothyroidism, unspecified; R93.1 Abnormal findings on diagnostic imaging of heart and coronary circulation; R19.7 Diarrhea, unspecified; T38.81 Poisoning by, adverse effect of and underdosing of anterior pituitary [adenohypophyseal] hormones; R00.1 Bradycardia, unspecified; Z79.899 Other long term (current) drug therapy; Z79.82 Long term (current) use of aspirin; Z91.81 History of falling; Z78.0 Asymptomatic menopausal state; Z91.138 Patient's unintentional underdosing of medication regimen for other reason
CPT/HCPCS: 36415; 36416; 36430; 51702; 71045; 73560; 78452; 80048; 80053; 81001; 82533; 82550; 82607; 82728; 82746; 82962; 83540; 83550; 83605; 83880; 84155; 84165; 84439; 84443; 84481; 84484; 85014; 85018; 85025; 85045; 86850; 86900; 86920; 93005; 93017; 93306; 93880; 96375; 97110; 97116; 97162; 97165; 97167; 97530; A4216; A4649; A9500; C1776; G0378; J0131; J0280; J0666; J0690; J1100; J1720; J2371; J2405; J2470; J2704; J2785; J2795; J2916; J3010; J3373; J3475; J3490; J7030; J7040; J9999; P9016; P9046

== ENCOUNTER → 2025-03-17 11:06 | Outpatient (BNVA) | payer MEDICARE, SELFPAY | PROVIDERS: PCP Family Medicine; Visit Provider Specialist | DX: Z98.890 Other specified postprocedural states (principal); Z96.652 Presence of left artificial knee joint | CPT/HCPCS: 73560; 73565; 99024 ==

== ENCOUNTER → 2025-03-18 16:12 | Outpatient (BNVA) | payer MEDICARE, SELFPAY | PROVIDERS: PCP Family Medicine; Visit Provider Family Medicine | DX: E03.9 Hypothyroidism, unspecified (principal); E03.5 Myxedema coma; D62 Acute posthemorrhagic anemia; M25.50 Pain in unspecified joint | CPT/HCPCS: 83540; 84439; 84443; 84481; 85025 ==

== ENCOUNTER → 2025-03-25 09:21 | Outpatient (BNVA) | payer MEDICARE, SELFPAY | PROVIDERS: PCP Family Medicine; Visit Provider Family Medicine | DX: I10 Essential (primary) hypertension (principal); D62 Acute posthemorrhagic anemia; E03.9 Hypothyroidism, unspecified; M25.59 Pain in other specified joint | CPT/HCPCS: 80048; 83540; 84439; 84443; 84481; 85025 ==

== ENCOUNTER → 2025-03-30 09:36 | Outpatient (BNVA) | payer MEDICARE, SELFPAY | PROVIDERS: PCP Family Medicine; Visit Provider Family Medicine | DX: E03.9 Hypothyroidism, unspecified (principal); I95.9 Hypotension, unspecified; D62 Acute posthemorrhagic anemia; I47.10 Supraventricular tachycardia, unspecified | CPT/HCPCS: 80048; 84439; 84443; 84481; 85025 ==

== ENCOUNTER → 2025-03-31 15:32 | Outpatient (BNVA) | payer MEDICARE, SELFPAY | PROVIDERS: PCP Family Medicine; Visit Provider Internal Medicine Cardiovascular Disease | DX: I95.1 Orthostatic hypotension (principal) | CPT/HCPCS: 99214 ==

== ENCOUNTER 2025-04-05 05:00 | Outpatient (RCR) | payer MEDICARE, SELFPAY | END 2025-05-05 08:54 | disposition home or self-care (01) | LOC: SPT 05:00 | PROVIDERS: PCP Family Medicine; Visit Provider Specialist | DX: Z47.1 Aftercare following joint replacement surgery (principal); Z96.652 Presence of left artificial knee joint | CPT/HCPCS: 97110; 97161 ==

== ENCOUNTER → 2025-05-03 10:25 | Outpatient (BNVA) | payer MEDICARE, SELFPAY | PROVIDERS: PCP Family Medicine; Visit Provider Family Medicine | DX: E03.9 Hypothyroidism, unspecified (principal); D62 Acute posthemorrhagic anemia; I47.10 Supraventricular tachycardia, unspecified; I95.9 Hypotension, unspecified; I10 Essential (primary) hypertension; E78.2 Mixed hyperlipidemia; M17.0 Bilateral primary osteoarthritis of knee; R41.89 Other symptoms and signs involving cognitive functions and awareness; R53.83 Other fatigue | CPT/HCPCS: 80048; 84439; 84443; 84481; 85025 ==

== ENCOUNTER → 2025-05-05 12:17 | Outpatient (BNVA) | payer MEDICARE, SELFPAY | PROVIDERS: PCP Family Medicine; Referring Provider Family Medicine; Visit Provider Internal Medicine Cardiovascular Disease | DX: I95.1 Orthostatic hypotension (principal); I48.91 Unspecified atrial fibrillation | CPT/HCPCS: 99214 ==